=== PATIENT | male | born 1975 | race Two or more races ===

== ENCOUNTER 2020-01-09 12:21 | Outpatient (REF) | payer MEDICAID, SELFPAY | END 2020-01-09 12:22 | disposition home or self-care (01) | LOC: HO.LAB 12:21 | PROVIDERS: Visit Provider Internal Medicine | DX: Z20.828 Contact with and (suspected) exposure to other viral communicable diseases (principal) | CPT/HCPCS: 87635 ==

== ENCOUNTER 2020-03-14 11:05 | Outpatient (REF) | payer MEDICAID, SELFPAY | END 2020-03-14 11:06 | disposition home or self-care (01) | LOC: HO.LAB 11:05 | PROVIDERS: Visit Provider Internal Medicine | DX: Z20.828 Contact with and (suspected) exposure to other viral communicable diseases (principal) | CPT/HCPCS: C9803; U0003 ==

== ENCOUNTER 2020-09-19 14:10 | Outpatient (REF) | payer OTHER, SELFPAY ==
[2020-09-19 15:00] LABS: MANUAL DIFF FLAG NO
[2020-09-19 15:06] LABS: Glucose Urine UA NEG (NEG); Leukocyte Esterase Urine NEG (NEG); Nitrite Urine NEG (NEG); Urine Blood NEG (NEG); Urine Ketones NEG (NEG); Urine Protein NEG (NEG-TRACE)
[2020-09-19 15:07] LABS: Appearance Urine HAZY; Color Urine YELLOW
[2020-09-19 15:08] LABS: Basophils Percent Auto 0.5 % (0-2); Eosinophils Absolute Auto 0.1 X10*3/uL (0.0-0.4); Hematocrit 40.1 % (42-52); Hemoglobin 13.1 g/dl (14.0-18.0); Imm Gran Abs Auto 0.02 X10*3/uL (0.00-0.03); Imm Gran Pct Auto 0.3 % (0.0-0.4); Lymphocytes Absolute Auto 1.9 X10*3/uL (1.2-4.9); Lymphocytes Percent Auto 32.4 % (20-40); Mean Corpuscular HGB Conc 32.7 g/dl (31.0-36.0); Mean Corpuscular Hemoglobin 29.9 pg (27.0-33.0); Mean Corpuscular Volume 91.6 fL (80-98); Mean Platelet Volume 10.3 fL (9.4-12.4); Monocytes Absolute Auto 0.6 X10*3/uL (0.1-1.2); Monocytes Percent Auto 10.6 % (2-11); Neutrophils Absolute Auto 3.3 X10*3/uL (2.0-8.3); Neutrophils Percent Auto 55.2 % (45-73); Platelet Count 252 X10*3/uL (160-400); Red Blood Count 4.38 X10*6/uL (4.60-5.80); Red Cell Distribution Width 12.8 % (11.0-16.0); White Blood Count 5.9 X10*3/uL (4.8-10.8)
[2020-09-19 16:05] LABS: Alanine Aminotransferase 19 U/L (0-40); Albumin Level 4.3 g/dL (3.5-5.0); Alkaline Phosphatase 49 U/L (39-117); Anion Gap 12 (12-20); Aspartate Amino Transferase 18 U/L (5-37); Bilirubin Total 0.3 mg/dL (0.0-1.0); Blood Urea Nitrogen 17 mg/dL (9-16); Calcium 9.5 mg/dL (8.4-10.2); Carbon Dioxide 27 mmol/L (22-29); Chloride 107 mmol/L (96-108); Estimated Glomerular Filt Rate > 60; Glucose Random 55 mg/dL (60-115); Potassium 4.6 mmol/L (3.3-5.1); Sodium 141 mmol/L (135-145); Total Protein 7.4 g/dL (6.5-8.0)
[2020-09-21 04:26] LABS: HBc Num1 0.04 S/CO (0.00-0.79); HBsAGNum1 0.18 S/CO (0.00-0.99); HIV AB/AG Nonreactive (Nonreactive); HIV Num 1 0.08 S/CO (0.00-0.99); Hepatitis B Core Antibody Nonreactive (Nonreactive); Hepatitis B Surface Antigen Negative (Negative); ~Hepatitis B Surface Antibody REACTIVE (Nonreactive)
[2020-09-21 04:37] LABS: ~HepC Num1 0.07 S/CO (0.00-0.79); ~Hepatitis C Antibody Nonreactive (Nonreactive)
== END 2020-09-19 14:11 | disposition home or self-care (01) ==
LOC: HO.LAB 14:10
PROVIDERS: PCP Internal Medicine; Visit Provider Internal Medicine
DX: Z01.84 Encounter for antibody response examination (principal); Z11.4 Encounter for screening for human immunodeficiency virus [HIV]; Z11.59 Encounter for screening for other viral diseases; C71.9 Malignant neoplasm of brain, unspecified; Z20.2 Contact with and (suspected) exposure to infections with a predominantly sexual mode of transmission
CPT/HCPCS: 36415; 80053; 81003; 85025; 86704; 86706; 86803; 87340; 87389

== ENCOUNTER 2020-09-27 13:34 | Outpatient (REF) | payer OTHER, SELFPAY ==
--- NOTE | ~2020-09-27 | MR_ITS ---
EXAMINATION: MRI OF THE BRAIN WITH AND WITHOUT IV CONTRAST INDICATION: Malignant neoplasm of brain. COMPARISON: Brain MRI 12/09/2019. TECHNIQUE: Multiplanar multisequence MR imaging of the brain was obtained without and following the administration of 8 mL of Gadavist without complication. FINDINGS: Stable appearance and size of the nonenhancing expansile lesion involving the undersurface of the left temporal lobe posteriorly. There is no pathologic enhancement intracranially. A few scattered foci of T2 signal change throughout the supratentorial white matter also remain stable. There is no hydrocephalus, extra-axial surface collection, or herniation. The major flow voids at the skull base are preserved. There is no acute infarct on diffusion-weighted imaging. There is no intracranial hemorrhage on the gradient recalled echo acquisition. The midline structures are normal. The cerebellar tonsils are normally positioned. The cerebellum and brainstem are normal. The craniocervical junction is normal. Osseous marrow signal intensity is homogenous. The visualized soft tissues are unremarkable. MR/MR head/brain wo/w con IMPRESSION: Stable appearance and size of the nonenhancing expansile lesion involving the undersurface of the left temporal lobe posteriorly.
== END 2020-09-27 13:35 | disposition home or self-care (01) ==
LOC: HO.MRI 13:34
PROVIDERS: PCP Internal Medicine; Visit Provider Internal Medicine
DX: C71.9 Malignant neoplasm of brain, unspecified (principal)
CPT/HCPCS: 70553; A9585

== ENCOUNTER 2020-09-30 12:10 | Emergency (ER) | payer OTHER, SELFPAY ==
--- NOTE | ~2020-09-30 | CT_ITS ---
EXAMINATION: CT HEAD WITHOUT CONTRAST CLINICAL INFORMATION: Headache with history of glioma. COMPARISON: None TECHNIQUE: Contiguous axial imaging was performed from the skull base to vertex without intravenous administration of contrast. This CT examination was performed using dose optimization techniques as appropriate, variously including the following: *Automated exposure control *Adjustment of mA and/or kV according to patient size (this includes techniques or standardized protocols for targeted exams where dose is matched to indication/reason for exam; i.e. extremities or head) *Use of iterative reconstruction technique DLP: 622 mGy-cm FINDINGS: There is no evidence of acute intracranial hemorrhage or territorial infarction. There is hypodensity visualized in the left inferior posterior temporal lobe extending to the posterior temporal parietal lobe suggestive of ongoing none disease/edema for glioma. The findings are similar to previous MRI 09/27/2020. The ventricles are normal in size. There is no abnormal attenuation within the brain parenchyma. The osseous structures and soft tissues are normal. The mastoid air cells and visualized portions of the paranasal sinuses are well aerated. CT/CT head/brain wo con IMPRESSION: No acute intracranial process seen. Moderate hypodensity left posterior temporal lobe extending to the posterior extent lobe consistent with edema are ongoing none changes from glioma similar to previous MRI 09/27/2020.
[2020-09-30 12:18] VITALS: BP 120/75; PULSE 76; RESP 18; TEMP 36.2; O2SAT 97; BMI 27.7
--- NOTE | 2020-09-30 14:34 | ED.HA ---
HPI - Headache General Chief Complaint: Headache Stated Complaint: headache Time Seen by Provider: 09/30/20 12:57 Source: patient Mode of arrival: ambulatory Limitations: no limitations History of Present Illness HPI Narrative: 45 years old male came in for evaluation of headache. Headache started many weeks ago, patient is known to have brain glioma, patient just had a recent MRI for his annual evaluation. Patient been having pressure inside his head today felt while he was driving the pressure with increased, but shortly after the headache has improved, no blurry vision, no nausea, no vomiting. Related Data Home Medications Medication Instructions Recorded Confirmed No Known Home Meds 09/19/20 09/19/20 Allergies Allergy/AdvReac Type Severity Reaction Status Date / Time No Known Allergies Allergy Verified 09/19/20 13:52 Review of Systems Review of Systems: All other systems are reviewed and are negative Constitutional: Reports as per HPI and Reports no additional constitutional complaints Eyes: Reports as per HPI and Reports no additional eye complaints Reports system reviewed and no additional complaints, except as documented Cardiovascular: Reports as per HPI and Reports no additional cardiovascular complaints Respiratory: Reports as per HPI and Reports no additional respiratory complaints Gastrointestinal: Reports as per HPI and Reports no additional gastrointestinal complaints Genitourinary: Reports no additional female genitourinary complaints Musculoskeletal: Reports no additional musculoskeletal complaints Skin/Breast: Reports system reviewed and no additional complaints, except as docu Psychiatric: Reports no additional psychiatric complaints Endocrine: Reports no additional endocrine complaints Hematologic/Lymphatic: Reports no additional hematologic/lymphatic complaints Allergic/Immunologic: Reports no additional allergic/immunologic complaints Reports system reviewed and no additional complaints, except as documented and Reports Abnormal speech present [facility] Past Medical History Medical History Low grade glioma of brain Potential exposure to STD Surgical History H/O circumcision Hx of appendectomy Family History Family History Mother No problems noted. Father No problems noted. Social History Social History Housing: Apartment Alcohol intake: never Patient Tobacco Use Status: Never used Tobacco Advance Directives: No Advance Directives Information Provided: Yes service: No Current occupational status: employed Current occupation: [employer] Physical Exam Vital Signs: Vital Signs: Last Vital Signs Temp 97.1 F 09/30/20 12:18 Pulse 76 09/30/20 12:18 Resp 18 09/30/20 12:18 BP 120/75 09/30/20 12:18 Pulse Ox 97 09/30/20 12:18 Body Mass Index 27.7 Vital signs have been reviewed as appeared to be correct. Blood pressure normal. Heart rate normal. Respiration rate normal. Temperature normal. Oxygen saturation normal. Appearance: Alert. Oriented X3. No acute distress. Head: Normal external exam. Normocephalic. Atraumatic. No Hutchison signs noted. No raccoon eyes noted Eyes: PERRLA. EOMI. Conjunctiva and sclera normal. Eyelids normal. ENT: TM's Normal. Pharynx normal. Uvula midline. Moist mucous membranes. No trismus noted. No drooling noted. No muffled voice noted. Neck: Normal inspection. Neck supple. FROM. No adenopathy. Thyroid Normal. No meningeal signs. No neck mass noted. CVS: Normal heart rate and rhythm. Heart sound normal. No murmurs noted. Pulses normal throughout. Respiratory: No respiratory distress. Painless inspiration. Breath sounds normal. No wheezes/rales/rhonchi noted. Chest nontender. No accessory muscle usage noted or decreased air movement noted. Abdomen: Soft and nontender. Bowel sounds normal in all 4 quadrants. No distention noted. No organomegaly noted. No visible injury noted. Back: No CVA tenderness. Full range of motion noted. Skin: Skin warm and dry. Normal skin color. Normal skin turgor. No rashes/lesions/lacerations noted. Extremities: No lower extremity edema. Extremities exhibit normal range of motion. Extremities nontender. Neuro: Oriented X 3. No motor deficit. No sensory deficit. Reflexes normal. Course Course Course Narrative: Assessment and plan. 45-year-old male with history of glioma, came in with chronic headache, head CT showed no acute changes, patient had a recent MRI of the brain which also showing no acute pathology. Headache is fluctuating, currently patient has no headache. MDM - Headache Imaging Data CT scan - head: Radiologist's impression: No acute intracranial process seen. Moderate hypodensity left posterior temporal lobe extending to the posterior extent lobe consistent with edema are ongoing none changes from glioma similar to previous MRI 09/27/2020. Discharge Plan Discharge Clinical Impression: Headache Patient Disposition: Home, Self-Care Instructions: Acute Headache (ED) Prescriptions: No Action No Known Home Meds RF: 0 Referrals: Dio Oden MD [Primary Care Provider] - 2 days
== END 2020-09-30 16:55 | disposition home or self-care (01) ==
PROVIDERS: Emergency Provider Emergency Medicine; PCP Internal Medicine
DX: R51.9 Headache, unspecified (principal); C71.9 Malignant neoplasm of brain, unspecified
CPT/HCPCS: 70450; 99284

== ENCOUNTER 2021-01-01 01:36 | Emergency (ER) | payer OTHER, SELFPAY ==
--- NOTE | 2021-01-01 | ECG_ITS ---
Test Reason : BELKIS OAIN Blood Pressure : / mmHG Vent. Rate : 065 BPM Atrial Rate : 065 BPM P-R Int : 144 ms QRS Dur : 086 ms QT Int : 382 ms P-R-T Axes : 067 020 034 degrees QTc Int : 397 ms Normal sinus rhythm Normal ECG When compared with ECG of 21-FEB-2016 13:06, No significant change was found Referred By: Generic ED Physician Electronically Signed By:YRIS LIU MD
--- NOTE | ~2021-01-01 | XR_ITS ---
EXAMINATION: XR CHEST CLINICAL INFORMATION: Chest pain COMPARISON: 01/08/2016 TECHNIQUE: Frontal view of the chest was obtained. FINDINGS: No significant abnormality is noted involving the heart, lungs, mediastinum, bony thorax or soft tissues. XR/XR chest 1V IMPRESSION: Unremarkable examination.
[2021-01-01 01:59] LABS: MANUAL DIFF FLAG NO
[2021-01-01 02:08] VITALS: BP 140/89; PULSE 67; RESP 20; TEMP 36.2; O2SAT 99; BMI 27.3
[2021-01-01 02:11] LABS: Basophils Percent Auto 0.3 % (0-2); Eosinophils Absolute Auto 0.1 X10*3/uL (0.0-0.4); Eosinophils Percent Auto 1.5 % (0-4); Hematocrit 38.4 % (42-52); Imm Gran Abs Auto 0.01 X10*3/uL (0.00-0.03); Imm Gran Pct Auto 0.2 % (0.0-0.4); Lymphocytes Absolute Auto 2.8 X10*3/uL (1.2-4.9); Lymphocytes Percent Auto 42.2 % (20-40); Mean Corpuscular HGB Conc 33.9 g/dl (31.0-36.0); Mean Corpuscular Hemoglobin 30.4 pg (27.0-33.0); Mean Corpuscular Volume 89.7 fL (80-98); Mean Platelet Volume 10.2 fL (9.4-12.4); Monocytes Absolute Auto 0.7 X10*3/uL (0.1-1.2); Neutrophils Percent Auto 45.8 % (45-73); Platelet Count 236 X10*3/uL (160-400); Red Blood Count 4.28 X10*6/uL (4.60-5.80); Red Cell Distribution Width 13.1 % (11.0-16.0); White Blood Count 6.6 X10*3/uL (4.8-10.8)
[2021-01-01 02:27] LABS: Alanine Aminotransferase 22 U/L (0-40); Albumin Level 4.3 g/dL (3.5-5.0); Alkaline Phosphatase 47 U/L (39-117); Anion Gap 12 (12-20); Aspartate Amino Transferase 19 U/L (5-37); Bilirubin Total 0.3 mg/dL (0.0-1.0); Blood Urea Nitrogen 20 mg/dL (9-16); Calcium 9.2 mg/dL (8.4-10.2); Carbon Dioxide 24 mmol/L (22-29); Chloride 107 mmol/L (96-108); Creatinine Clr Calc Pharmacy 86.2; Estimated Glomerular Filt Rate > 60; Glucose Random 85 mg/dL (60-115); Potassium 4.5 mmol/L (3.3-5.1); Sodium 138 mmol/L (135-145); Total Protein 7.5 g/dL (6.5-8.0)
[2021-01-01 02:32] LABS: Troponin-I High Sensitivity < 3.5 ng/L (<3.5-35.0)
[2021-01-01 04:47] VITALS: BP 146/87; PULSE 62; RESP 15; O2SAT 100
[2021-01-01 06:00] VITALS: BP 138/87; PULSE 64; RESP 15; O2SAT 100
--- NOTE | 2021-01-01 06:38 | ED_ITS ---
HPI - Chest Pain General Chief Complaint: Chest Pain Stated Complaint: Chest Pain Time Seen by Provider: 01/01/21 06:38 Source: patient Mode of arrival: ambulatory Limitations: no limitations History of Present Illness complaint: chest pain Onset (ago): hour(s) (12 am) Timing of current episode: episodic Prior episodes: Yes Onset: during rest Pain location: left chest Pain radiation: none Severity: moderate Quality: sharp Relieving factors: nothing Exacerbating factors: nothing Context: other (occured while watching TV started suddenly ended suddenly asymp tomatic now) Treatment prior to arrival: none Related Data Home Medications Medication Instructions Recorded Confirmed No Known Home Meds 09/19/20 09/19/20 Allergies Allergy/AdvReac Type Severity Reaction Status Date / Time No Known Allergies Allergy Verified 09/19/20 13:52 Review of Systems Review of Systems: Constitutional : No Weight loss, No Fever, No Chills ENT/Mouth : No sore throat, No Rhinorrhea Eyes: No Eye Pain, No Swelling Cardiovascular : pos Chest Pain, no SOB, no Dyspnea on Exertion, No Orthopnea, No Edema, No Palpitations Respiratory : No Cough, No Sputum Gastrointestinal : no Nausea, No Vomiting, No Diarrhea, No abdominal Pain, No Hematochezia, No Melena Genitourinary : No Dysuria, No Urinary Frequency Musculoskeletal : No joint pain, No Myalgias, No Joint Swelling Skin : No Skin Lesions, No rash Neuro : No Weakness, No Numbness, No Dizziness, No Headache Psych : No Anxiety/Panic, No Depression Heme/Lymph: No Bruising, No Lymphadenopathy Endocrine : No Polyuria, No Polydipsia All other systems reviewed and are negative [facility] Past Medical History Attestation statement: The following information was validated with the patient. Medical History Low grade glioma of brain Potential exposure to STD Surgical History H/O circumcision Hx of appendectomy Family History Family History Mother No problems noted. Father No problems noted. 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 Oriented X3. No acute distress. Eyes: Pupils equal, round and reactive to light. ENT: Pharynx normal. Neck: Normal inspection. Neck supple. CVS: Normal heart rate and rhythm. Pulses normal. Respiratory: No respiratory distress. Breath sounds normal. Abdomen: Soft and nontender. Skin: Skin warm and dry. Normal skin color. Normal skin turgor. Extremities: No lower extremity edema. No calf ttp Neuro: Oriented X 3. No motor deficit. No sensory deficit. Course Course Course Narrative: delta trop negative stable for DC MDM - Chest Pain MDM Narrative Medical decision making narrative: 45 yo male atypical chest pain here with symptoms that started at 12am no pain now it was sharp in nature. He is PERC negative doubt PE. No pain now doubt dissection. It is very atypical in nature for ACS and he has no risk factors - will obtain EKG, CXR and delta trop if negative stable for DC Lab Data Result diagrams: 01/01/21 01:55 01/01/21 01:55 Labs: Lab Results 01/01/21 01/01/21 01/01/21 Range/Units 01:55 01:55 01:55 WBC 6.6 (4.8-10.8) X10*3/uL RBC 4.28 L (4.60-5.80) X10*6/uL Hgb 13.0 L (14.0-18.0) g/dl Hct 38.4 L (42-52) % MCV 89.7 (80-98) fL MCH 30.4 (27.0-33.0) pg MCHC 33.9 (31.0-36.0) g/dl RDW 13.1 (11.0-16.0) % Plt Count 236 (160-400) X10*3/uL MPV 10.2 (9.4-12.4) fL Immature Gran % (Auto) 0.2 (0.0-0.4) % Neut % (Auto) 45.8 (45-73) % Lymph % (Auto) 42.2 H (20-40) % [place] % (Auto) 10.0 (2-11) % Eos % (Auto) 1.5 (0-4) % Baso % (Auto) 0.3 (0-2) % Lymph # (Auto) 2.8 (1.2-4.9) X10*3/uL [place] # (Auto) 0.7 (0.1-1.2) X10*3/uL Eos # (Auto) 0.1 (0.0-0.4) X10*3/uL Baso # (Auto) 0.0 (0.0-0.2) X10*3/uL Abs Immat Gran (auto) 0.01 (0.00-0.03) X10*3/uL Absolute Neuts (auto) 3.0 (2.0-8.3) X10*3/uL Absolute Nucleated RBC 0.000 (0.0-0.012) X10*3/uL Nucleated RBC % (auto) 0.0 (0.0-0.2) /100WBC Sodium 138 (135-145) mmol/L Potassium 4.5 (3.3-5.1) mmol/L Chloride 107 (96-108) mmol/L Carbon Dioxide 24 (22-29) mmol/L Anion Gap 12 (12-20) BUN 20 H (9-16) mg/dL Creatinine 1.00 (0.5-1.4) mg/dL Estim Creat Clear Calc 86.2 Estimated GFR > 60 Random Glucose 85 D (60-115) mg/dL Calcium 9.2 (8.4-10.2) mg/dL Total Bilirubin 0.3 (0.0-1.0) mg/dL AST 19 (5-37) U/L ALT 22 (0-40) U/L Alkaline Phosphatase 47 (39-117) U/L Troponin I High Sens < 3.5 (<3.5-35.0) ng/L Total Protein 7.5 (6.5-8.0) g/dL Albumin 4.3 (3.5-5.0) g/dL 01/01/21 Range/Units 07:05 WBC (4.8-10.8) X10*3/uL RBC (4.60-5.80) X10*6/uL Hgb (14.0-18.0) g/dl Hct (42-52) % MCV (80-98) fL MCH (27.0-33.0) pg MCHC (31.0-36.0) g/dl RDW (11.0-16.0) % Plt Count (160-400) X10*3/uL MPV (9.4-12.4) fL Immature Gran % (Auto) (0.0-0.4) % Neut % (Auto) (45-73) % Lymph % (Auto) (20-40) % [place] % (Auto) (2-11) % Eos % (Auto) (0-4) % Baso % (Auto) (0-2) % Lymph # (Auto) (1.2-4.9) X10*3/uL [place] # (Auto) (0.1-1.2) X10*3/uL Eos # (Auto) (0.0-0.4) X10*3/uL Baso # (Auto) (0.0-0.2) X10*3/uL Abs Immat Gran (auto) (0.00-0.03) X10*3/uL Absolute Neuts (auto) (2.0-8.3) X10*3/uL Absolute Nucleated RBC (0.0-0.012) X10*3/uL Nucleated RBC % (auto) (0.0-0.2) /100WBC Sodium (135-145) mmol/L Potassium (3.3-5.1) mmol/L Chloride (96-108) mmol/L Carbon Dioxide (22-29) mmol/L Anion Gap (12-20) BUN (9-16) mg/dL Creatinine (0.5-1.4) mg/dL Estim Creat Clear Calc Estimated GFR Random Glucose (60-115) mg/dL Calcium (8.4-10.2) mg/dL Total Bilirubin (0.0-1.0) mg/dL AST (5-37) U/L ALT (0-40) U/L Alkaline Phosphatase (39-117) U/L Troponin I High Sens < 3.5 (<3.5-35.0) ng/L Total Protein (6.5-8.0) g/dL Albumin (3.5-5.0) g/dL ECG Data ECG #1: Attestation: I personally reviewed and interpreted this ECG as follows: ECG interpretation date: 01/01/21 ECG interpretation time: 06:39 Interpretation: Rate: 66 Rhythm: NSR [place]: normal Normal P waves. Normal ROSS. Normal QRS complex. ST T wave : normal no acute ischemia qTC: normal prior studies: no acute ischemia The study has been interpreted contemporaneously by me. . Discharge Plan Discharge Clinical Impression: Atypical chest pain Patient Disposition: Home, Self-Care Instructions: Chest Pain (ED) Additional Instructions: return to ED for any worsening symptoms or concerns Prescriptions: No Action No Known Home Meds RF: 0 Referrals: Dio Oden MD [Primary Care Provider] - 2 days (if not better or it recurs) Stand Alone Forms: Work/School Release
[2021-01-01 07:45] LABS: Troponin-I High Sensitivity < 3.5 ng/L (<3.5-35.0)
== END 2021-01-01 07:54 | disposition home or self-care (01) ==
PROVIDERS: Emergency Provider Emergency Medicine; PCP Internal Medicine
DX: R07.9 Chest pain, unspecified (principal); Z79.899 Other long term (current) drug therapy
CPT/HCPCS: 36415; 71045; 80053; 84484; 85025; 93005; 99283; 99285

== ENCOUNTER 2021-02-06 18:01 | Emergency (ER) | payer OTHER, SELFPAY ==
[2021-02-06 18:30] VITALS: BP 135/83; PULSE 74; RESP 18; TEMP 36.8; O2SAT 100; BMI 28.1
[2021-02-06 19:41] LABS: IDNOW Serial# 08D9AD1C; Strep A Nucleic Acid Negative (Negative)
[2021-02-06 19:49] LABS: COVID-19 Test Negative (Negative)
--- NOTE | 2021-02-06 19:52 | ED.GENADULT ---
HPI - General Adult General Chief complaint: General Medical Stated complaint: sore throat Time Seen by Provider: 02/06/21 18:54 Source: patient Mode of arrival: ambulatory Limitations: no limitations History of Present Illness HPI narrative: 45-year-old male presents to the ER with painful red bumps on the roof of mouth that he noticed this morning. He also reports a mild sore throat. He is worried that the bumps could be from a bacterial infection in the has a new baby at home. He is fully vaccinated for COVID-19 and denies any fevers, chills, nausea, vomiting, diarrhea, abdominal pain, nasal congestion, headache. No known sick contacts. No dental pain. MD complaint: Painful sores on the roof of his mouth. Onset (ago): day(s) (1) Location: mouth Radiation: non-radiation Severity: moderate Severity scale (1-10): 5 Quality: burning Pain Consistency: intermittent Relieving factors: none Exacerbating factors: eating Associated symptoms: denies other symptoms Treatments prior to arrival: none Related Data Previous Rx's Medication Instructions Recorded Magic Mouthwash 20 ml PO Q3H PRN #240 ml 02/06/21 Diphen/Lido/Antacid 1:1:1 240 mL suspension Allergies Allergy/AdvReac Type Severity Reaction Status Date / Time No Known Allergies Allergy Verified 09/19/20 13:52 Review of Systems Review of Systems: Constitutional: No Fever, No Chills ENT/Mouth: + sore throat, No Rhinorrhea, No Swallowing Difficulty Eyes: No Eye Pain, No Swelling, No Redness Cardiovascular: No Chest Pain, No SOB Respiratory: No Cough, No Sputum Gastrointestinal: No Nausea, No Vomiting, No abdominal Pain Skin: No Skin Lesions, No rash Neuro: No Dizziness, No Headache Psych: + Anxiety/Panic Heme/Lymph: No Bruising, No Lymphadenopathy PMFSH Past Medical History Medical History Low grade glioma of brain Potential exposure to STD Surgical History H/O circumcision Hx of appendectomy Family History Family History Mother No problems noted. Father No problems noted. 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 Oriented X3. Anxious HEENT: normal external inspection. Mucous membranes are moist. Uvula is midline with no tonsillar swelling or exudate. Normal appearance of the tongue. Normal inspection of the teeth. The hard palate with to less than 1 cm circular ulcerations very superficial, erythematous, slightly tender. CVS: Normal heart rate and rhythm. Pulses normal. Respiratory: No respiratory distress. Skin: Skin warm and dry. Normal skin color. Normal skin turgor. No rashes. Extremities: Normal inspection with normal range of motion x4 Neuro: Oriented X 3. No motor deficit. No sensory deficit. Course Course Course Narrative: 45-year-old male presenting to the ER with 2 small circular painful lesions on the roof of his mouth that he noticed today. He would like a strep test and COVID test make sure these are infectious. Lesions are consistent with superficial abrasions from trauma versus canker sores. Reevaluation(s) Reevaluation #1: COVID and strep negative. Will provide Magic mouthwash as needed for pain. Patient will follow-up with his doctor or dentist if these do not improve with supportive care. Patient is stable for discharge home. Medical Decision Making Lab Data Labs: Lab Results 02/06/21 02/06/21 Range/Units 19:26 19:26 COVID-19 (LIMA) Negative (Negative) COVID-19 Clin Com See Note S. pyogenes GrpA KATIE Negative (Negative) Critical Care Time Critical Care Time Critical Care Time: No Discharge Plan Discharge Clinical Impression: Pain in mouth Patient Disposition: Home, Self-Care Instructions: Canker Sores (ED) Additional Instructions: You were negative for COVID-19 and strep throat. The lesions on the top your mouth or either from trauma or a canker sore. Use the prescribed mouthwash as needed for pain. Recommend [id number] [place] as needed for pain If lesions do not resolve in a 1 week recommend following up with your doctor or dentist for further evaluation. Prescriptions: New Magic Mouthwash Diphen/Lido/Antacid 1:1:1 240 mL suspension 20 ml PO Q3H PRN (Reason: mouth pain) Qty: 240 RF: 0 Print Language: Arabic
== END 2021-02-06 20:15 | disposition home or self-care (01) ==
PROVIDERS: Physician Assistant; Emergency Provider Emergency Medicine
DX: K13.79 Other lesions of oral mucosa (principal); Z20.822 Contact with and (suspected) exposure to COVID-19
CPT/HCPCS: 36415; 87635; 87651; 99283

== ENCOUNTER 2021-02-18 10:01 | Outpatient (REF) | payer OTHER, SELFPAY ==
[2021-02-18 11:10] LABS: Cholesterol 222 mg/dL; HDL Cholesterol 95 mg/dL; LDL Cholesterol Calculated 117 mg/dl; Triglycerides 54 mg/dL
[2021-02-18 11:23] LABS: HIV AB/AG Nonreactive (Nonreactive); HIV Num 1 0.06 S/CO (0.00-0.99)
[2021-02-18 11:24] LABS: Syphilis Screen Nonreactive (Nonreactive)
[2021-02-18 11:31] LABS: TSH reflex Free T4 0.46 uIU/mL (0.32-4.0)
[2021-02-18 13:06] LABS: CT PCR NOT DETECTED (Not Detect.); NG PCR NOT DETECTED (Not Detect.)
[2021-02-22 18:27] LABS: HSV 1 IgM IFA Negative (Negative); HSV 2 IgM IFA Negative (Negative)
== END 2021-02-18 10:02 | disposition home or self-care (01) ==
LOC: HO.LAB 10:01
PROVIDERS: PCP Internal Medicine; Visit Provider Internal Medicine
DX: Z00.00 Encounter for general adult medical examination without abnormal findings (principal); Z11.4 Encounter for screening for human immunodeficiency virus [HIV]; E78.00 Pure hypercholesterolemia, unspecified; Z20.2 Contact with and (suspected) exposure to infections with a predominantly sexual mode of transmission
CPT/HCPCS: 80061; 84443; 86695; 86696; 86780; 87389; 87491; 87591

== ENCOUNTER 2021-05-04 08:36 | Emergency (ER) | payer OTHER, SELFPAY ==
[2021-05-04 08:45] VITALS: BP 135/76; PULSE 94; RESP 18; TEMP 37.5; O2SAT 97; BMI 26.6
[2021-05-04 09:36] LABS: COVID-19 Test Negative (Negative)
--- NOTE | 2021-05-04 09:44 | ED_ITS ---
HPI - Fever General Chief Complaint: Fever Stated Complaint: headache body aches fever Time Seen by Provider: 05/04/21 09:35 Source: patient Mode of arrival: ambulatory Limitations: no limitations History of Present Illness HPI Narrative: 46 yo male here with fever up to 102F, headache, body aches, nasal congestion x 2 days. No cough, rhinorrhea, sore throat, shortness of breath, chest pain, vomiting, diarrhea, abdominal pain, neck pain or stiffness or urinary symptoms. Patient received moderna vaccine x2 Related Data Allergies Allergy/AdvReac Type Severity Reaction Status Date / Time No Known Allergies Allergy Verified 02/13/21 22:36 Review of Systems Review of Systems: Yes all other systems are reviewed and are negative Constitutional: Constitutional: Reports no additional constitutional complaints, Reports body ache(s), Denies chills, Reports fever(s), Reports headache(s) and Denies weakness Eyes: Eyes: Reports no additional eye complaints and Denies change in vision ENT: Reports system reviewed and no additional complaints, except as documented, Denies dizziness, Reports headache(s), Reports nasal congestion, Denies nasal discharge and Denies neck pain Cardiovascular: Cardiovascular: Reports no additional cardiovascular complaints, Denies chest pain, Denies leg edema and Denies dyspnea Respiratory: Respiratory: Reports no additional respiratory complaints, Denies cough and Denies dyspnea Gastrointestinal: Gastrointestinal: Reports no additional gastrointestinal complaints, Denies abdominal pain, Denies diarrhea, Denies nausea and Denies vomiting Genitourinary: Genitourinary: Denies urinary incontinence Musculoskeletal: Musculoskeletal: Reports no additional musculoskeletal complaints, Denies back pain, Denies arthralgias, Denies joint swelling, Denies neck pain, Denies numbness and Denies tingling Integumentary/Breasts: Skin/Breast: Reports system reviewed and no additional complaints, except as docu and Denies rash Neurologic: Reports system reviewed and no additional complaints, except as documented, Denies Abnormal speech present, Denies dizziness, Reports headache(s), Denies numbness, Denies tingling and Denies weakness PMF Past Medical History Attestation statement: The following information was validated with the patient. Source: old records reviewed and nursing notes reviewed Medical History Low grade glioma of brain Overweight (BMI 25.0-29.9) Potential exposure to STD Surgical History H/O circumcision Hx of appendectomy Family History Family History Mother No problems noted. Father No problems noted. 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 Physical Exam Vital Signs: Vital Signs: Last Vital Signs Temp 99.5 F 05/04/21 08:45 Pulse 94 05/04/21 08:45 Resp 18 05/04/21 08:45 BP 135/76 05/04/21 08:45 Pulse Ox 97 05/04/21 08:45 BMI result Body Mass Index 26.6 Const: General: cooperative, healthy appearing, comfortable and no acute distress Orientation/consciousness: patient oriented x3 Limitations: no limitations HENMT: Head: Yes normal to inspection Ears: hearing grossly normal bilaterally and TM's normal bilaterally General nose exam: Normal external nose present Face and sinus: Yes normal facial exam Mouth: Normal oral and palatal mucosa present Throat: Yes posterior oropharynx normal, Yes tonsils normal and Yes uvula midline Eyes: General: appearance normal, both eyes and all related structures Pupils: Equal, round and reactive pupils present Neck: Neck: Yes normal visual inspection, Yes full ROM, Yes no lymphadenopathy, Yes no meningeal signs, No positive Brudzinski's sign and No positive Kernig's sign Chest: Chest palpation & inspection: normal inspection of the chest Resp: Effort & Inspection: normal respiratory effort Auscultation: clear to auscultation bilaterally Cardio: Rate: regular rate Rhythm: regular rhythm Peripheral pulses: Peripheral pulses 2+ throughout GI: Inspection: Yes normal to inspection Palpation (GI): Soft to palpation and nontender Auscultation: normal bowel sounds Back/Spine/Pelvis: Thoracic/Lumbar Spine: thoracic and lumbar spine normal to inspection Skin: General skin exam: no rashes or lesions noted Neuro: General: patient oriented x3, no meningeal signs, no focal motor deficits and normal sensation to monofilament Cranial nerves: Yes Equal, round and reactive pupils present, Yes Normal facial strength present and Yes Midline tongue present Cognition (Neuro): normal cognition Speech: No Abnormal speech present Gait exam (Neuro): Normal gait present Motor exam (neuro): 5/5 motor strength present throughout Sensory Exam: Normal double simultaneous stimulation for sensation Extrem: General: Yes normal to inspection, Yes no pedal edema and Yes no calf tenderness Course Course Course Narrative: 46 yo male here with fever up to 102F, nasal congestion, headache, body aches x 2 days. Covid screen negative. Exam is benign. Afebrile here. VSS. Likely viral. Recommended supportive care at home with strict return precautions as well as f/u with PCP in 7 days for persistent symptoms. MDM - Fever MDM Narrative Medical decision making narrative: Less likely meningitis/encephalitis with no neurological deficits, no neck pain/stiffness, no fever here, nonspecific [facility] Medical Records Attestation: I reviewed the patient's medical records. Lab Data Attestation: I reviewed the patient's lab results. Labs: Lab Results 05/04/21 Range/Units 08:53 COVID-19 ([facility]) Negative (Negative) COVID-19 Clin Com See Note Discharge Plan Discharge Clinical Impression: Viral infection Patient Disposition: Home, Self-Care Instructions: Viral Syndrome (ED) Additional Instructions: Covid test is negative Increase fluids, rest Motrin or tylenol for pain or fever Continue to stay home, wear mask if you are having fever Return for shortness of breath, chest pain, fever >100.4 that does not respond to motrin or tylenol, neck pain or stiffness Follow-up with your PCP in 7 days for persistent symptoms Referrals: Dio Oden MD [Primary Care Provider] - 1 week Interventions: ED Discharge Assessment Last Done: 05/04/21 09:56 Discharge Date/Time: 05/04/21 09:56
== END 2021-05-04 09:56 | disposition home or self-care (01) ==
PROVIDERS: Emergency Provider Emergency Medicine Emergency Medical Services; PCP Internal Medicine
DX: B34.9 Viral infection, unspecified (principal); Z20.822 Contact with and (suspected) exposure to COVID-19; R50.9 Fever, unspecified
CPT/HCPCS: 87635; 99283

== ENCOUNTER 2021-06-20 20:23 | Emergency (ER) | payer OTHER, SELFPAY ==
--- NOTE | ~2021-06-20 | XR_ITS ---
EXAMINATION: XR CHEST CLINICAL INFORMATION: Chest pain and cough. COMPARISON: Chest radiograph dated from 01/01/2021. TECHNIQUE: 2 views of the chest were obtained. FINDINGS: No significant abnormality is noted involving the heart, lungs, mediastinum, bony thorax or soft tissues. XR/XR chest 2V IMPRESSION: Unremarkable examination.
[2021-06-20 20:31] VITALS: BP 127/90; PULSE 104; RESP 18; TEMP 37.9; O2SAT 98; BMI 24.3
--- NOTE | 2021-06-20 20:38 | ECG_ITS ---
Test Reason : chest pain Blood Pressure : / mmHG Vent. Rate : 099 BPM Atrial Rate : 099 BPM P-R Int : 136 ms QRS Dur : 080 ms QT Int : 324 ms P-R-T Axes : 066 -01 030 degrees QTc Int : 415 ms Normal sinus rhythm Normal ECG When compared with ECG of 01-JAN-2021 01:44, Vent. rate has increased BY 34 BPM Referred By: Generic ED Physician Electronically Signed By:ELDA POSADA
[2021-06-20 21:01] LABS: MANUAL DIFF FLAG NO
[2021-06-20 21:02] LABS: Basophils Percent Auto 0.4 % (0-2); Eosinophils Percent Auto 0.6 % (0-4); Hematocrit 39.3 % (42.0-52.0); Hemoglobin 13.1 g/dl (14.0-18.0); Imm Gran Abs Auto 0.02 X10*3/uL (0.00-0.03); Imm Gran Pct Auto 0.4 % (0.0-0.4); Lymphocytes Absolute Auto 0.7 X10*3/uL (1.2-4.9); Lymphocytes Percent Auto 13.1 % (20-40); Mean Corpuscular HGB Conc 33.3 g/dl (31.0-36.0); Mean Corpuscular Hemoglobin 30.6 pg (27.0-33.0); Mean Corpuscular Volume 91.8 fL (80.0-98.0); Mean Platelet Volume 9.8 fL (9.4-12.4); Monocytes Absolute Auto 0.9 X10*3/uL (0.1-1.2); Monocytes Percent Auto 17.1 % (2-11); Neutrophils Absolute Auto 3.4 x10*3/uL (2.0-8.3); Neutrophils Percent Auto 68.4 % (45-73); Platelet Count 240 X10*3/uL (160-400); Red Blood Count 4.28 X10*6/uL (4.60-5.80); Red Cell Distribution Width 13.2 % (11.0-16.0)
[2021-06-20 21:18] LABS: Anion Gap 10 (12-20); Blood Urea Nitrogen 14 mg/dL (9-16); Calcium 9.1 mg/dL (8.4-10.2); Carbon Dioxide 28 mmol/L (22-29); Chloride 103 mmol/L (96-108); Creatinine Clr Calc Pharmacy 76.8; Estimated Glomerular Filt Rate > 60; Glucose Random 102 mg/dL (60-115); Potassium 4.2 mmol/L (3.3-5.1); Sodium 137 mmol/L (135-145)
[2021-06-20 21:22] LABS: Troponin-I High Sensitivity < 3.5 ng/L (<3.5-35.0)
[2021-06-20 21:38] LABS: Influenza A PCR POSITIVE (Negative); Influenza B PCR NEGATIVE (Negative); Resp Syncy Virus RNA Qual PCR NEGATIVE (Negative); SARS COV2 PCR INHOUSE NEGATIVE (Negative)
--- NOTE | 2021-06-20 23:50 | ED.GENADULT ---
HPI - General Adult General Chief complaint: General Medical Stated complaint: diff breathing, weakness, chest pain Time Seen by Provider: 06/20/21 23:50 Source: patient Mode of arrival: ambulatory Limitations: no limitations History of Present Illness HPI narrative: patient already vaccinated against COVID-19 complaining of body aches headache all started today with dry cough no shortness of breath no rash Related Data Previous Rx's Medication Instructions Recorded codeine 10 mg-guaifenesin 100 mg/5 10 ml PO Q6H PRN #237 ml 06/21/21 mL oral liquid Allergies Allergy/AdvReac Type Severity Reaction Status Date / Time No Known Allergies Allergy Verified 06/20/21 20:31 Review of Systems Review of Systems: Yes all other systems are reviewed and are negative PMFSH Past Medical History Medical History Low grade glioma of brain Overweight (BMI 25.0-29.9) Potential exposure to STD Surgical History H/O circumcision Hx of appendectomy Family History Family History Mother No problems noted. Father No problems noted. 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 Oriented X3. No acute distress. ENT: Pharynx normal. Oral Mucosa moist Neck: Normal inspection. Neck supple. CVS: Normal heart rate and rhythm. Pulses normal. Respiratory: No respiratory distress. Equal air entry bilateral, no wheezing/rales/rhonchi Abdomen: Soft and nontender. Bowel sounds are present, no mass palpable, no CVA tenderness Skin: Skin warm and dry. Normal skin color. Normal skin turgor. Extremities: No lower extremity edema. No calf tenderness Neuro: Oriented X 3. No motor deficit. No sensory deficit.No cerebellar signs , cranial nerves II-XII intact Medical Decision Making Lab Data Lab results reviewed: Yes I reviewed the patient's lab results. Result diagrams: 06/20/21 20:54 06/20/21 20:54 Labs: Lab Results 06/20/21 06/20/21 06/20/21 Range/Units 20:54 20:54 20:54 WBC 5.0 (4.8-10.8) X10*3/uL RBC 4.28 L (4.60-5.80) X10*6/uL Hgb 13.1 L (14.0-18.0) g/dl Hct 39.3 L (42.0-52.0) % MCV 91.8 (80.0-98.0) fL MCH 30.6 (27.0-33.0) pg MCHC 33.3 (31.0-36.0) g/dl RDW 13.2 (11.0-16.0) % Plt Count 240 (160-400) X10*3/uL MPV 9.8 (9.4-12.4) fL Immature Gran % (Auto) 0.4 (0.0-0.4) % Neut % (Auto) 68.4 (45-73) % Lymph % (Auto) 13.1 L (20-40) % [place] % (Auto) 17.1 H (2-11) % Eos % (Auto) 0.6 (0-4) % Baso % (Auto) 0.4 (0-2) % Lymph # (Auto) 0.7 L (1.2-4.9) X10*3/uL [place] # (Auto) 0.9 (0.1-1.2) X10*3/uL Eos # (Auto) 0.0 (0.0-0.4) X10*3/uL Baso # (Auto) 0.0 (0.0-0.2) X10*3/uL Abs Immat Gran (auto) 0.02 (0.00-0.03) X10*3/uL Absolute Neuts (auto) 3.4 (2.0-8.3) x10*3/uL Absolute Nucleated RBC 0.000 (0.0-0.012) X10*3/uL Nucleated RBC % (auto) 0.0 (0.0-0.2) /100WBC Sodium 137 (135-145) mmol/L Potassium 4.2 (3.3-5.1) mmol/L Chloride 103 (96-108) mmol/L Carbon Dioxide 28 (22-29) mmol/L Anion Gap 10 L (12-20) BUN 14 (9-16) mg/dL Creatinine 1.15 (0.5-1.4) mg/dL Estim Creat Clear Calc 76.8 Estimated GFR > 60 Random Glucose 102 (60-115) mg/dL Calcium 9.1 (8.4-10.2) mg/dL Troponin I High Sens < 3.5 (<3.5-35.0) ng/L Influenza Type A (PCR) (Negative) Influenza Type B (PCR) (Negative) RSV RNA Qual (PCR) (Negative) SARS-CoV-2 RNA (RT-PCR) (Negative) 06/20/21 Range/Units 20:54 WBC (4.8-10.8) X10*3/uL RBC (4.60-5.80) X10*6/uL Hgb (14.0-18.0) g/dl Hct (42.0-52.0) % MCV (80.0-98.0) fL MCH (27.0-33.0) pg MCHC (31.0-36.0) g/dl RDW (11.0-16.0) % Plt Count (160-400) X10*3/uL MPV (9.4-12.4) fL Immature Gran % (Auto) (0.0-0.4) % Neut % (Auto) (45-73) % Lymph % (Auto) (20-40) % [place] % (Auto) (2-11) % Eos % (Auto) (0-4) % Baso % (Auto) (0-2) % Lymph # (Auto) (1.2-4.9) X10*3/uL [place] # (Auto) (0.1-1.2) X10*3/uL Eos # (Auto) (0.0-0.4) X10*3/uL Baso # (Auto) (0.0-0.2) X10*3/uL Abs Immat Gran (auto) (0.00-0.03) X10*3/uL Absolute Neuts (auto) (2.0-8.3) x10*3/uL Absolute Nucleated RBC (0.0-0.012) X10*3/uL Nucleated RBC % (auto) (0.0-0.2) /100WBC Sodium (135-145) mmol/L Potassium (3.3-5.1) mmol/L Chloride (96-108) mmol/L Carbon Dioxide (22-29) mmol/L Anion Gap (12-20) BUN (9-16) mg/dL Creatinine (0.5-1.4) mg/dL Estim Creat Clear Calc Estimated GFR Random Glucose (60-115) mg/dL Calcium (8.4-10.2) mg/dL Troponin I High Sens (<3.5-35.0) ng/L Influenza Type A (PCR) POSITIVE A (Negative) Influenza Type B (PCR) NEGATIVE (Negative) RSV RNA Qual (PCR) NEGATIVE (Negative) SARS-CoV-2 RNA (RT-PCR) NEGATIVE (Negative) Discharge Plan Discharge Clinical Impression: Influenza A Patient Disposition: Home, Self-Care Instructions: Influenza (ED) Additional Instructions: drink plenty of fluids Tylenol/Motrin for fever cough syrup as prescribed report to ER if increased shortness of breath Prescriptions: New codeine-guaifenesin 10-100 mg/5 mL liquid 10 ml PO Q6H PRN (Reason: cough) Qty: 237 0RF
[2021-06-20 23:51] VITALS: BP 131/89; PULSE 98; RESP 16; TEMP 38.1; O2SAT 98
[2021-06-21] MEDS: Ibuprofen 600 MG TABLET PO (00:21)
[2021-06-21] MEDS: Benzonatate 100 MG CAPSULE 200 MG PO (00:21)
== END 2021-06-21 00:28 | disposition home or self-care (01) ==
PROVIDERS: Emergency Provider Internal Medicine; PCP Internal Medicine
DX: J11.1 Influenza due to unidentified influenza virus with other respiratory manifestations (principal); Z20.822 Contact with and (suspected) exposure to COVID-19; R50.9 Fever, unspecified
CPT/HCPCS: 0241U; 36415; 71046; 80048; 84484; 85025; 93005; 99283; 99284

== ENCOUNTER → 2021-07-02 08:05 | Outpatient (BNVA) | payer OTHER, SELFPAY | PROVIDERS: PCP Internal Medicine; Referring Provider Internal Medicine; Visit Provider Nurse Practitioner Family | DX: Z12.11 Encounter for screening for malignant neoplasm of colon (principal) | CPT/HCPCS: 99202 ==

== ENCOUNTER 2021-10-06 11:20 | Emergency (ER) | payer OTHER, SELFPAY ==
--- NOTE | ~2021-10-06 | CT_ITS ---
EXAMINATION: CT HEAD WITHOUT CONTRAST CLINICAL INFORMATION: Headache with nausea and vomiting COMPARISON: 09/30/2020 TECHNIQUE: Contiguous axial imaging was performed from the skull base to vertex without intravenous administration of contrast. This CT examination was performed using dose optimization techniques as appropriate, variously including the following: *Automated exposure control *Adjustment of mA and/or kV according to patient size (this includes techniques or standardized protocols for targeted exams where dose is matched to indication/reason for exam; i.e. extremities or head) *Use of iterative reconstruction technique DLP: 655 mGy-cm FINDINGS: There is no evidence for midline shift. There is no hemorrhage. The exam is felt to be unchanged from most recent previous. The basilar cisterns are patent. The posterior fossa risk grossly within normal limits. Once again there is low attenuation in the white matter in the left temporal lobe. This shows no significant change on this noncontrast scan compared to previous. Review of the bone windows demonstrates grossly clear sinuses. CT/CT head/brain wo con IMPRESSION: This exam is showing no change from most recent previous of noncontrast CT of 09/30/2020. There is certainly no evidence of midline shift or mass effect or hemorrhage. Once again abnormal low attenuation seen in the left temporal region consistent shows no significant change from most recent CT scan. If further evaluation is warranted consider MRI pre and postcontrast
[2021-10-06 11:51] VITALS: BP 148/100; PULSE 67; RESP 19; TEMP 36.6; O2SAT 98; BMI 28.2
[2021-10-06 14:20] LABS: MANUAL DIFF FLAG NO
[2021-10-06 14:26] LABS: Basophils Percent Auto 0.3 % (0-2); Eosinophils Percent Auto 0.4 % (0-4); Hematocrit 43.9 % (42.0-52.0); Hemoglobin 14.6 g/dl (14.0-18.0); Imm Gran Abs Auto 0.02 X10*3/uL (0.00-0.03); Imm Gran Pct Auto 0.3 % (0.0-0.4); Lymphocytes Absolute Auto 2.3 X10*3/uL (1.2-4.9); Lymphocytes Percent Auto 33.3 % (20-40); Mean Corpuscular HGB Conc 33.3 g/dl (31.0-36.0); Mean Corpuscular Hemoglobin 30.2 pg (27.0-33.0); Mean Corpuscular Volume 90.9 fL (80.0-98.0); Mean Platelet Volume 9.9 fL (9.4-12.4); Monocytes Absolute Auto 0.6 X10*3/uL (0.1-1.2); Monocytes Percent Auto 8.9 % (2-11); Neutrophils Absolute Auto 3.9 x10*3/uL (2.0-8.3); Neutrophils Percent Auto 56.8 % (45-73); Platelet Count 296 X10*3/uL (160-400); Red Blood Count 4.83 X10*6/uL (4.60-5.80); Red Cell Distribution Width 12.8 % (11.0-16.0); White Blood Count 6.9 X10*3/uL (4.8-10.8)
[2021-10-06 14:36] LABS: Alanine Aminotransferase 21 U/L (0-40); Albumin Level 4.7 g/dL (3.5-5.0); Alkaline Phosphatase 51 U/L (39-117); Anion Gap 13 (12-20); Aspartate Amino Transferase 19 U/L (5-37); Bilirubin Total 0.8 mg/dL (0.0-1.0); Blood Urea Nitrogen 14 mg/dL (9-16); Calcium 9.3 mg/dL (8.4-10.2); Carbon Dioxide 25 mmol/L (22-29); Chloride 104 mmol/L (96-108); Creatinine Clr Calc Pharmacy 91.3; Estimated Glomerular Filt Rate > 60; Glucose Random 84 mg/dL (60-115); Lactate Dehydrogenase 159 U/L (118-273); Lipase 12 U/L (8-78); Magnesium 1.9 mg/dL (1.6-2.6); Sodium 138 mmol/L (135-145); Total Protein 8.2 g/dL (6.5-8.0)
--- NOTE | 2021-10-06 16:26 | ED.GENADULT ---
HPI - General Adult General Chief complaint: Headache Stated complaint: Vomiting/STD testing/Headache Time Seen by Provider: 10/06/21 13:52 Source: patient Mode of arrival: ambulatory History of Present Illness HPI narrative: 46-year-old male with a past medical history of low-grade brain glioma, presenting to the ED complaining of intermittent fluctuating headache x few days with nausea and emesis x2 which has resolved. Also reports potential STI exposure, had unprotected intercourse 2 weeks ago, requesting STI testing. Patient asymptomatic at present. Reports headache improved at present, denies nausea, vision change/loss, weakness, numbness/tingling, abdominal pain, flank pain, penile lesions, scrotal pain, swelling, discharge Onset (ago): week(s) Location: head and genitals Related Data Previous Rx's Medication Instructions Recorded bisacodyl 5 mg tablet,delayed 10 mg PO ONCE 1 day #2 tabs 07/02/21 release (Dulcolax (bisacodyl)) polyethylene glycol 3350 17 238 g PO ONCE #238 grams 07/02/21 gram/dose oral powder (Miralax) doxycycline hyclate 100 mg tablet 100 mg PO BID 7 days #14 tabs 10/06/21 Allergies Allergy/AdvReac Type Severity Reaction Status Date / Time No Known Allergies Allergy Verified 08/13/21 13:54 Review of Systems Review of Systems: Constitutional: No Fever, No Chills, No Fatigue, No Malaise ENT/Mouth: No Ear Pain, No Nasal Congestion, No sore throat, No Rhinorrhea, No Swallowing Difficulty Eyes: No Eye Pain, No Swelling, No Redness, No Foreign Body, No Vision Changes Cardiovascular: No Chest Pain, No SOB Respiratory: No Cough, No Sputum, No Dyspnea Gastrointestinal: No Nausea, No Vomiting, No Diarrhea, No Constipation, No Abdominal pain Genitourinary: No Dysuria, No Urinary Frequency, No Hematuria, No Urinary Incontinence/retention, No Urgency, No Flank Pain, No Urinary Flow Changes, No Hesitancy, No penile/scrotal pain/swelling, no genital lesions, no penile discharge Musculoskeletal: No joint pain, No Myalgias, No Joint Swelling Skin: No Skin Lesions, No rash Neuro: No Weakness, No Numbness, No Paresthesias, No Dizziness, + Headache Yes all other systems are reviewed and are negative Constitutional: Constitutional: Reports as per HPI Neurologic: Denies Abnormal speech present [facility] Past Medical History Attestation statement: The following information was validated with the patient. Medical History Low grade glioma of brain Overweight (BMI 25.0-29.9) Potential exposure to STD Surgical History H/O circumcision Hx of appendectomy Family History Family History Mother No problems noted. Father No problems noted. 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 Cognitive needs: No Hearing needs: No Vision needs: No Physical Exam ED Vital Signs: Vital Signs - 24 hr 10/06/21 11:51 Temperature 98 F Pulse Rate 67 Respiratory Rate 19 Blood Pressure 148/100 H Pulse Oximetry 98 Oxygen Delivery Method Room Air BMI result Body Mass Index 28.2 Const General: cooperative, healthy appearing and no acute distress Orientation/consciousness: patient oriented x3 Limitations: no limitations HENMT Head: Yes normal to inspection and Yes atraumatic Ears: hearing grossly normal bilaterally General nose exam: Normal external nose present Face and sinus: Yes normal facial exam Throat: Yes posterior oropharynx normal, Yes tonsils normal and Yes uvula midline Eyes General: appearance normal, both eyes and all related structures Pupils: Equal, round and reactive pupils present EOM: EOMs intact bilaterally Neck Neck: Yes normal visual inspection, Yes full ROM and Yes no meningeal signs Resp Effort & Inspection: normal respiratory effort and no respiratory distress Auscultation: clear to auscultation bilaterally Cardio Rate: regular rate Heart sounds: S1 normal heart sound present and S2 normal heart sound present GI Inspection: Yes normal to inspection Palpation (GI): Soft to palpation, nontender, no guarding and not rigid Other: exam deferred General: Yes no CVA tenderness Back/Spine/Pelvis Back: no CVA tenderness Skin Rashes: no rashes Wounds: no wounds Neuro General: patient oriented x3, gait normal, tone normal, moves all extremities, no meningeal signs, no focal motor deficits and CN's II-XI intact bilaterally Cranial nerves: Yes CN's II-XII intact bilaterally and Yes Equal, round and reactive pupils present Cognition (Neuro): normal cognition Speech: No Abnormal speech present Gait exam (Neuro): Normal gait present Motor exam (neuro): 5/5 motor strength present throughout Extrem General: Yes normal to inspection Course Course Course Narrative: -labs unremarkable from this morning -patient prophylactically treated with IM Rocephin and p.o. doxycycline in the ED 1748-- CT head/brain wo con IMPRESSION: This exam is showing no change from most recent previous of noncontrast CT of 09/30/2020. There is certainly no evidence of midline shift or mass effect or hemorrhage. Once again abnormal low attenuation seen in the left temporal region consistent shows no significant change from most recent CT scan. If further evaluation is warranted consider MRI pre and postcontrast -1843--UA not infected. Results discussed with patient including worrisome signs and symptoms and strict return precautions and need to follow-up with [facility] and PCP Medical Decision Making MDM Narrative Medical decision making narrative: 46-year-old male with a past medical history of low-grade brain glioma, presenting to the ED complaining of intermittent fluctuating headache x few days with nausea and emesis x2 which has resolved. Also reports potential STI exposure, had unprotected intercourse 2 weeks ago. On exam hypertensive, NAD, nontoxic appearing, no focal neuro deficits, abdomen soft/nontender, no CVA tenderness. Concern for complicated migraine headache vs advancing glioma. Unlikely meningitis/encephalitis, ICH with intermittent symptoms. Concern for STI, patient asymptomatic. Would like prophylactic treatment. Plan: Labs, UA, STI testing, head CT Patient requesting HIV testing, will refer to [facility] [place] Medical Records Medical records reviewed: Yes I reviewed the patient's medical records. Lab Data Lab results reviewed: Yes I reviewed the patient's lab results. Result diagrams: 10/06/21 14:16 10/06/21 14:16 Labs: Lab Results 10/06/21 10/06/21 10/06/21 Range/Units 14:16 14:16 17:51 WBC 6.9 (4.8-10.8) X10*3/uL RBC 4.83 (4.60-5.80) X10*6/uL Hgb 14.6 (14.0-18.0) g/dl Hct 43.9 (42.0-52.0) % MCV 90.9 (80.0-98.0) fL MCH 30.2 (27.0-33.0) pg MCHC 33.3 (31.0-36.0) g/dl RDW 12.8 (11.0-16.0) % Plt Count 296 (160-400) X10*3/uL MPV 9.9 (9.4-12.4) fL Immature Gran % (Auto) 0.3 (0.0-0.4) % Neut % (Auto) 56.8 (45-73) % Lymph % (Auto) 33.3 (20-40) % [place] % (Auto) 8.9 (2-11) % Eos % (Auto) 0.4 (0-4) % Baso % (Auto) 0.3 (0-2) % Lymph # (Auto) 2.3 (1.2-4.9) X10*3/uL [place] # (Auto) 0.6 (0.1-1.2) X10*3/uL Eos # (Auto) 0.0 (0.0-0.4) X10*3/uL Baso # (Auto) 0.0 (0.0-0.2) X10*3/uL Abs Immat Gran (auto) 0.02 (0.00-0.03) X10*3/uL Absolute Neuts (auto) 3.9 (2.0-8.3) x10*3/uL Absolute Nucleated RBC 0.000 (0.0-0.012) X10*3/uL Nucleated RBC % (auto) 0.0 (0.0-0.2) /100WBC Sodium 138 (135-145) mmol/L Potassium 4.0 (3.3-5.1) mmol/L Chloride 104 (96-108) mmol/L Carbon Dioxide 25 (22-29) mmol/L Anion Gap 13 (12-20) BUN 14 (9-16) mg/dL Creatinine 0.99 (0.5-1.4) mg/dL Estim Creat Clear Calc 91.3 Estimated GFR > 60 Random Glucose 84 (60-115) mg/dL Calcium 9.3 (8.4-10.2) mg/dL Magnesium 1.9 (1.6-2.6) mg/dL Total Bilirubin 0.8 (0.0-1.0) mg/dL AST 19 (5-37) U/L ALT 21 (0-40) U/L Alkaline Phosphatase 51 (39-117) U/L Lactate Dehydrogenase 159 (118-273) U/L Total Protein 8.2 H (6.5-8.0) g/dL Albumin 4.7 (3.5-5.0) g/dL Lipase 12 (8-78) U/L Urine Color DK YELLOW Urine Appearance CLOUDY Urine pH 6.0 (5.0-8.0) Ur Specific [place] >= 1.030 H (1.005-1.025) Urine Protein NEG (NEG-TRACE) MG/DL Urine Glucose (UA) NEG (NEG) MG/DL Urine Ketones 15 (NEG) MG/DL Urine Blood 1+ H (NEG) Urine Nitrite NEG (NEG) Ur Leukocyte Esterase NEG (NEG) Urine RBC 0-2 (0) /HPF Urine WBC 0 (0-4) /HPF Ur Squamous Epith Cells TRACE /LPF Urine Bacteria NONE /LPF Discharge Plan Discharge Clinical Impression: Headache, Potential exposure to STD Patient Disposition: Home, Self-Care Instructions: Sexually Transmitted Diseases (ED), General Headache (ED) Additional Instructions: Your blood work was reassuring today in the emergency department. Head CT is unchanged from priors. Your tested for gonorrhea and chlamydia as well as syphilis, the results take 48-72 hours to return, if anything is positive we will call you. You were empirically treated for gonorrhea and chlamydia. Continue taking doxycycline as prescribed. Avoid the sun while on doxycycline as makes you sensitive to the sun. Avoid any sexual contact until we know the results of your studies. Follow-up with [facility] for further STI testing Prescriptions: New doxycycline hyclate 100 mg tablet 100 mg PO BID 7 Days Qty: 14 0RF No Action bisacodyl [Dulcolax (bisacodyl)] 5 mg tablet,delayed release (DR/EC) 10 mg PO ONCE 1 Days Qty: 2 0RF Rx Instructions: take 2 tabs at noon the day before your colonoscopy polyethylene glycol 3350 [Miralax] 17 gram/dose powder 238 g PO ONCE Qty: 238 0RF Rx Instructions: As directed by gastroenterology department at [facility] Referrals: Dio Oden MD [Primary Care Provider] - Stand Alone Forms: Work/School Release
[2021-10-06] MEDS: cefTRIAXone sodium 500 MG, Lidocaine HCl 1 % MPF 1 ML IM (17:43)
[2021-10-06 18:28] LABS: Appearance Urine CLOUDY; Color Urine DK YELLOW; Glucose Urine UA NEG (NEG); Leukocyte Esterase Urine NEG (NEG); Nitrite Urine NEG (NEG); Specific Gravity - Urine >= 1.030 (1.005-1.025); UACC Culture Trigger NO; Urine Blood 1+ (NEG); Urine Ketones 15 MG/DL (NEG); Urine Protein NEG (NEG-TRACE)
[2021-10-06 18:41] LABS: RBC Urine 0-2 /HPF (0); Squamous Epithelial Cell Urine TRACE /LPF; WBC Urine 0 /HPF (0-4)
[2021-10-07 08:57] LABS: CT PCR NOT DETECTED (Not Detect.); NG PCR NOT DETECTED (Not Detect.)
[2021-10-07 10:26] LABS: Syphilis Screen Nonreactive (Nonreactive)
== END 2021-10-06 21:23 | disposition home or self-care (01) ==
PROVIDERS: Physician Assistant; Physician Assistant Medical; Emergency Provider Emergency Medicine; PCP Internal Medicine
DX: R51.9 Headache, unspecified (principal); Z20.2 Contact with and (suspected) exposure to infections with a predominantly sexual mode of transmission; Z79.899 Other long term (current) drug therapy
CPT/HCPCS: 36415; 70450; 80053; 81001; 83615; 83690; 83735; 85025; 86780; 87491; 87591; 96360; 99282; 99284; J0696

== ENCOUNTER 2021-10-18 08:27 | Day surgery (SDC) | payer OTHER, SELFPAY ==
[2021-10-14 10:19] VITALS: BMI 26.4
--- NOTE | 2021-10-17 09:59 | HO.ANESPROP2 ---
Documented by User: Marilynn Duvall NP 10/17/21 10:00 HPI - Anesthesia Eval Consult details Narrative: 46yo M for Colonoscopy low grade glioma, stable for years [facility] Active Problems Active Problems: All Active Problems (Updated 10/07/21 @ 00:00 by Lydia Salinas) Annual physical exam (Acute) Colon cancer screening (Acute) Overweight (BMI 25.0-29.9) (Acute) Potential exposure to STD (Acute) Low grade glioma of brain (Acute) Past Medical History Medical History Low grade glioma of brain Overweight (BMI 25.0-29.9) Potential exposure to STD Family History Family History Mother No problems noted. Father No problems noted. 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 Rate : 099 BPM ? ? Atrial Rate : 099 BPM ?? P-R Int : 136 ms? QRS Dur : 080 ms ? ? QT Int : 324 ms ? ? ? P-R-T Axes : 066 -01 030 degrees ?? QTc Int : 415 ms ? Normal sinus rhythm Normal ECG When compared with ECG of 01-JAN-2021 01:44, Vent. rate has increased BY? 34 BPM Assessment and Plan Assessment Anesthesia Assessment: Chart Reviewed Documented by User: Ledy Montenegro MD 10/18/21 10:01 PMFSH Past Medical History Medical History Low grade glioma of brain Overweight (BMI 25.0-29.9) Potential exposure to STD Family History Family History Mother No problems noted. Father No problems noted. Surgical History Surgical History H/O circumcision Hx of appendectomy History of Problems with Anesthesia: No Social History Social History Housing: Apartment Alcohol intake: never Patient Tobacco Use Status: Never used Tobacco Second Hand Smoke Exposure: Yes Use of substances other than those prescribed or required for medical reasons: No Are you DNR?: No Advance Directives: No Advance Directives Information Provided: Yes Recently lost weight without trying: No Nutrition Risks: No Nutritional Risk service: No Current occupational status: employed Current occupation: [employer] Cognitive needs: No Hearing needs: No Vision needs: No Meds Allergies Allergy/AdvReac Type Severity Reaction Status Date / Time No Known Allergies Allergy Verified 08/13/21 13:54 Assessment and Plan Assessment Anesthesia Assessment: Anesthesia Plan Discussed Final Anesthetic Review History of Problems with Anesthesia: No NPO: Yes ASA Class: II Final Preanesthetic Review: Meds/Allgs Chart Reviewed, Consent Obtained/Reviewed and Anes Risks/Benef Reviewed Patient Risk: Low Procedure Risk: Low Anesthetic Plan Anesthetic Plan: MAC: Disposition: Standard PACU
[2021-10-18 09:01] VITALS: BMI 25.8
--- NOTE | 2021-10-18 09:05 | MHC.SHP ---
Pre-Procedural Eval Section A Date of Service: 10/18/21 The patient is an INPATIENT: No The History & Physical has been completed within 30 days and I have reviewed it.: No Section B Chief Complaint: screening Details of Present Illness: Colon cancer screening Relevant Family History (Specify if Yes): No Relevant Social History: None Present Medications: see Short Stay Collaborative assessment Medical History: Significant History (Low grade glioma of brain Overweight (BMI 25.0-29.9) Potential exposure to STD) History of Previous Operations: Relevant previous surgery/procedure and date(s) (H/O circumcision Hx of appendectomy) Allergies: Allergies Allergy/AdvReac Type Severity Reaction Status Date / Time No Known Allergies Allergy Verified 08/13/21 13:54 Review of Systems Sugical H&P ROS: Negative: Constitution, Cardiovascular, Respiratory and Gastrointestinal Exam Surgical H&P Exam: Normal: Heart, Normal: Lungs, Normal: Extremities and Normal: Abdomen Plan Diagnosis/Plan: Unchanged I have reviewed the history and physical and performed a pertinent physical examination on my patient. No changes have occurred unless specified.
--- NOTE | 2021-10-18 09:07 | P.OP_ITS ---
Operative Note Operative Note Date of Service: 10/18/21 Narrative: Pre-op diagnosis: Colon cancer screening Post-op diagnosis:?other (Diverticulosis) Procedure: COLONOSCOPY TILL CECUM Consent: Indications for the procedure and potential complications of bleeding, perforation, reaction to medications and missed diagnosis were discussed with the patient and informed consent was obtained. Instrument: Olympus PCF H 190 L variable stiffness pediatric colonoscope Monitoring: Vital signs and clinical assessment, intermittent blood pressure monitoring, continuous EKG monitoring, Pulse oximetry and Carbon Dioxide monitoring were done throughout the procedure. Colon withdrawl time was 15 minutes. Procedure: The patient was placed in the left lateral decubitis position and pre-procedure medications were administered. After a digital rectal examination of the ano-rectum, the video colonoscope was inserted into the rectum and advanced through the colon to the cecum. The colonoscope was slowly withdrawn in a retrograde panoramic fashion and the colon mucosa was carefully examined including a retroflexed view of the rectum. Findings and interventions are described below. Procedure Difficulty: Without difficulty Findings: Terminal Ileum: Not evaluated Cecum:? Partially evaluated due to suboptimal prep Ascending Colon: ? Partially evaluated due to suboptimal prep Scattered moderate diverticulosis throughout the colon Transverse Colon:? Scattered moderate diverticulosis throughout the colon Descending Colon:? Scattered moderate diverticulosis throughout the colon Sigmoid Colon:? Scattered moderate diverticulosis throughout the colon Rectum:? Normal Ano-rectum:? Normal Colon preparation:? Good in the left and transverse colon and? poor in the right colon with undigested vegetable matter which could not be suction despite copious irrigation Impression and Post Procedure Diagnosis: Colonoscopy Findings: No polyps were detected Moderate diverticulosis seen in the entire colon Plan: Patient has an appointment on 11/01/21 in the GI [facility] with Mile Roy FNP- [facility]. Repeat Colonoscopy in 1-2 years due to poor prep in the right colon (Pt reports having solid food at noon yeserday Above findings were reviewed with the patient and diverticulosis handout was given in the discharge area Surgeon: Latoya Cullen MD Anesthesia:?MAC Was an Fisher Sponge Hooking used for this Procedure?:?Yes Fisher Sponge Hooking:?Joy Lee Estimated blood loss (mL):?0 Pathology:?none sent Condition:?stable Disposition:?PACU
[2021-10-18 09:12] VITALS: BP 139/80; PULSE 76; RESP 18; TEMP 36.7; O2SAT 98
[2021-10-18] MEDS: Lactated Ringers 1,000 ML 100 ML IVCONT (09:23)
[2021-10-18 10:36] VITALS: BP 94/56; PULSE 64; RESP 16; TEMP 36.1; O2SAT 98
[2021-10-18 10:51] VITALS: BP 106/69; PULSE 56; RESP 15; TEMP 36.2; O2SAT 98
[2021-10-18 11:06] VITALS: BP 126/79; PULSE 66; RESP 17; TEMP 36.1; O2SAT 100
[2021-10-18 11:21] VITALS: BP 133/76; PULSE 53; RESP 17; TEMP 36.1; O2SAT 99
[2021-10-18 11:36] VITALS: BP 101/61; PULSE 58; RESP 16; TEMP 36.1; O2SAT 99
--- NOTE | 2021-10-18 15:52 | PHA.MEDREC ---
Pharmacy Consult ? Medication Reconciliation Pharmacy has completed the medication reconciliation.
== END 2021-10-18 12:09 | disposition home or self-care (01) ==
PROVIDERS: PCP Internal Medicine; Visit Provider Internal Medicine Gastroenterology
PROC: 0DJD8ZZ Inspection of Lower Intestinal Tract, Via Natural or Artificial Opening Endoscopic (ICD-10-PCS; CPT 45378; principal; 2021-10-18 10:10)
DX: Z12.11 Encounter for screening for malignant neoplasm of colon (principal); K57.30 Diverticulosis of large intestine without perforation or abscess without bleeding; C71.9 Malignant neoplasm of brain, unspecified; Z79.899 Other long term (current) drug therapy; E66.3 Overweight; Z68.26 Body mass index [BMI] 26.0-26.9, adult
CPT/HCPCS: 45378; J3010

== ENCOUNTER 2021-10-29 07:46 | Emergency (ER) | payer OTHER, SELFPAY ==
[2021-10-29 07:53] VITALS: BP 126/81; PULSE 78; RESP 18; TEMP 36.3; O2SAT 99; BMI 27.3
--- NOTE | 2021-10-29 08:18 | ED.SKABFB ---
HPI - Skin/Abscess/Foreign Bdy General Chief complaint: Skin/Abscess/Foreign Body Stated complaint: Allergic reaction Time Seen by Provider: 10/29/21 08:04 Source: patient Mode of arrival: ambulatory Limitations: no limitations History of Present Illness HPI narrative: 46-year-old male who presents with 2 crusted lesions over the chin which are draining some clear liquid noticed last night with some local redness. Patient reports some itching at the site. He denies any pain or burning. No fevers or chills. Patient reports that he did use a new soap in the last week for shaving. Related Data Previous Rx's Medication Instructions Recorded doxycycline hyclate 100 mg tablet 100 mg PO BID 7 days #14 tabs 10/06/21 mupirocin 2 % topical ointment 1 appl topical TID #22 grams 10/29/21 Allergies Allergy/AdvReac Type Severity Reaction Status Date / Time No Known Allergies Allergy Verified 08/13/21 13:54 Review of Systems Review of Systems: Yes all other systems are reviewed and are negative Constitutional: Constitutional: Reports no additional constitutional complaints, Denies body ache(s), Denies chills, Denies fever(s), Denies headache(s) and Denies weakness Eyes: Eyes: Reports no additional eye complaints and Denies change in vision ENT: Reports system reviewed and no additional complaints, except as documented, Denies dizziness, Denies headache(s), Denies nasal congestion, Denies nasal discharge and Denies neck pain Cardiovascular: Cardiovascular: Reports no additional cardiovascular complaints, Denies chest pain, Denies leg edema and Denies dyspnea Respiratory: Respiratory: Reports no additional respiratory complaints, Denies cough and Denies dyspnea Gastrointestinal: Gastrointestinal: Reports no additional gastrointestinal complaints, Denies abdominal pain, Denies diarrhea, Denies nausea and Denies vomiting Genitourinary: Genitourinary: Denies urinary incontinence Musculoskeletal: Musculoskeletal: Reports no additional musculoskeletal complaints, Denies back pain, Denies arthralgias, Denies joint swelling, Denies neck pain, Denies numbness and Denies tingling Integumentary/Breasts: Skin/Breast: Reports system reviewed and no additional complaints, except as docu, Reports erythema, Denies rash and Reports wounds Neurologic: Reports system reviewed and no additional complaints, except as documented, Denies Abnormal speech present, Denies dizziness, Denies headache(s), Denies numbness, Denies tingling and Denies weakness PMF Past Medical History Attestation statement: The following information was validated with the patient. Source: old records reviewed and nursing notes reviewed Medical History Low grade glioma of brain Overweight (BMI 25.0-29.9) Potential exposure to STD Surgical History H/O circumcision Hx of appendectomy Hx of colonoscopy Family History Family History Mother No problems noted. Father No problems noted. Social History Social History Housing: Apartment Alcohol intake: never Patient Tobacco Use Status: Never used Tobacco Second Hand Smoke Exposure: Yes Advance Directives: No Advance Directives Information Provided: No service: No Current occupational status: employed Current occupation: [employer] Cognitive needs: No Hearing needs: No Vision needs: No Physical Exam Vital Signs: Vital Signs: Last Vital Signs Temp 97.3 F 10/29/21 07:53 Pulse 78 10/29/21 07:53 Resp 18 10/29/21 07:53 BP 126/81 10/29/21 07:53 Pulse Ox 99 10/29/21 07:53 O2 Del Method 10/29/21 07:53 BMI result Body Mass Index 27.3 Const: General: cooperative, healthy appearing, comfortable and no acute distress Orientation/consciousness: patient oriented x3 Limitations: no limitations HEENT: Head: Yes normal to inspection Head images: 1. Two honey-crusted lesions with some erythema at the base Ears: hearing grossly normal bilaterally General nose exam: Normal external nose present Face and sinus: Yes normal facial exam Mouth: Normal oral and palatal mucosa present Throat: Yes posterior oropharynx normal Eyes: General: appearance normal, both eyes and all related structures Pupils: Equal, round and reactive pupils present Neck: Neck: Yes normal visual inspection Chest: Chest palpation & inspection: normal inspection of the chest Resp: Effort & Inspection: normal respiratory effort Auscultation: clear to auscultation bilaterally Cardio: Rate: regular rate Rhythm: regular rhythm Peripheral pulses: Peripheral pulses 2+ throughout GI: Inspection: Yes normal to inspection Palpation (GI): Soft to palpation and nontender Auscultation: normal bowel sounds Back/Spine/Pelvis: Thoracic/Lumbar Spine: thoracic and lumbar spine normal to inspection Skin: General skin exam: no rashes or lesions noted Neuro: General: patient oriented x3, no focal motor deficits and normal sensation to monofilament Cranial nerves: Yes Equal, round and reactive pupils present Cognition (Neuro): normal cognition Speech: No Abnormal speech present Gait exam (Neuro): Normal gait present Motor exam (neuro): 5/5 motor strength present throughout Extrem: General: Yes normal to inspection MDM - Skin/Abscess/Foreign Bdy MDM Narrative Medical decision making narrative: 46-year-old male here with 2 honey-crusted lesions noted over the chin since last night with some local itching. Exam is consistent with impetigo. Will treat w/ mupirocin Medical Records Attestation: I reviewed the patient's medical records. Lab Data Attestation: I reviewed the patient's lab results. Discharge Plan Discharge Clinical Impression: Impetigo Patient Disposition: Home, Self-Care Instructions: Impetigo (ED) Additional Instructions: Wash face with soap and water daily Wash hands after touching face Avoid shaving Prescriptions: New mupirocin 2 % ointment 1 appl topical TID Qty: 22 0RF No Action doxycycline hyclate 100 mg tablet 100 mg PO BID 7 Days Qty: 14 0RF Referrals: Dio Oden MD [Primary Care Provider] - 1 week Stand Alone Forms: Work/School Release
== END 2021-10-29 08:25 | disposition home or self-care (01) ==
PROVIDERS: Emergency Provider Student in an Organized Health Care Education/Training Program; PCP Internal Medicine
DX: L01.00 Impetigo, unspecified (principal)
CPT/HCPCS: 99282; 99283

== ENCOUNTER 2021-12-26 07:36 | Outpatient (REF) | payer OTHER, SELFPAY ==
[2021-12-26 09:18] LABS: Cholesterol 222 mg/dL; HDL Cholesterol 101 mg/dL; LDL Cholesterol Calculated 112 mg/dl; Triglycerides 49 mg/dL
[2021-12-26 09:19] LABS: HIV AB/AG Nonreactive (Nonreactive)
[2021-12-26 09:27] LABS: TSH reflex Free T4 0.53 uIU/mL (0.32-4.0); Vitamin D 25-OH Total 27.6 ng/mL (>30)
[2021-12-26 10:07] LABS: Vitamin B12 398 pg/mL (200-900)
== END 2021-12-26 07:37 | disposition home or self-care (01) ==
LOC: HO.LAB 07:36
PROVIDERS: PCP Internal Medicine; Visit Provider Internal Medicine
DX: E55.9 Vitamin D deficiency, unspecified (principal); E53.8 Deficiency of other specified B group vitamins; R41.3 Other amnesia; E78.00 Pure hypercholesterolemia, unspecified; Z20.2 Contact with and (suspected) exposure to infections with a predominantly sexual mode of transmission
CPT/HCPCS: 36415; 80061; 82306; 82607; 82746; 84443; 87389

== ENCOUNTER 2022-03-03 06:59 | Outpatient (REF) | payer OTHER, SELFPAY ==
[2022-03-03 07:13] LABS: MANUAL DIFF FLAG NO
[2022-03-03 07:43] LABS: Basophils Percent Auto 0.5 % (0-2); Eosinophils Absolute Auto 0.1 X10*3/uL (0.0-0.4); Eosinophils Percent Auto 1.1 % (0-4); Hematocrit 41.9 % (42.0-52.0); Hemoglobin 13.7 g/dl (14.0-18.0); Imm Gran Abs Auto 0.01 X10*3/uL (0.00-0.03); Imm Gran Pct Auto 0.2 % (0.0-0.4); Lymphocytes Absolute Auto 1.6 X10*3/uL (1.2-4.9); Lymphocytes Percent Auto 37.5 % (20-40); Mean Corpuscular HGB Conc 32.7 g/dl (31.0-36.0); Mean Corpuscular Hemoglobin 29.7 pg (27.0-33.0); Mean Corpuscular Volume 90.9 fL (80.0-98.0); Mean Platelet Volume 9.7 fL (9.4-12.4); Monocytes Absolute Auto 0.4 X10*3/uL (0.1-1.2); Monocytes Percent Auto 9.9 % (2-11); Neutrophils Absolute Auto 2.2 x10*3/uL (2.0-8.3); Neutrophils Percent Auto 50.8 % (45-73); Platelet Count 273 X10*3/uL (160-400); Red Blood Count 4.61 X10*6/uL (4.60-5.80); Red Cell Distribution Width 13.2 % (11.0-16.0); White Blood Count 4.4 X10*3/uL (4.8-10.8)
[2022-03-03 08:03] LABS: Appearance Urine Clear; Color Urine Yellow; Glucose Urine UA Negative (Negative); Leukocyte Esterase Urine Negative (Negative); Nitrite Urine Negative (Negative); PH 5.5 (5.0-9.0); Specific Gravity - Urine >= 1.030 (1.005-1.025); UMIC TRIGGER UACC YES; Urine Blood Trace (Negative); Urine Ketones Negative (Negative); Urine Protein Trace mg/dL (Neg-Trace)
[2022-03-03 08:08] LABS: Bacteria Urine None Seen (None Seen); Hyaline Casts Urine 0-2 /LPF (0-2); RBC Urine 0-2 /HPF (0-2); Squamous Epithelial Cell Urine 0-2 /HPF (0-2); WBC Urine 0-5 /HPF (0-5)
[2022-03-03 09:31] LABS: Alanine Aminotransferase 21 U/L (0-40); Albumin Level 4.3 g/dL (3.5-5.0); Alkaline Phosphatase 47 U/L (39-117); Anion Gap 14 (12-20); Aspartate Amino Transferase 18 U/L (5-37); Bilirubin Total 0.5 mg/dL (0.0-1.0); Blood Urea Nitrogen 17 mg/dL (9-16); Calcium 9.2 mg/dL (8.4-10.2); Carbon Dioxide 26 mmol/L (22-29); Chloride 105 mmol/L (96-108); Cholesterol 217 mg/dL; Estimated Glomerular Filt Rate > 60; Glucose Fasting 84 mg/dL (60-99); HDL Cholesterol 100 mg/dL; LDL Cholesterol Calculated 110 mg/dl; Potassium 4.5 mmol/L (3.3-5.1); Prostate Specific Antigen Scr 0.75 ng/mL (<0.05-4.0); Sodium 140 mmol/L (135-145); TSH reflex Free T4 0.56 uIU/mL (0.32-4.0); Total Protein 7.3 g/dL (6.5-8.0); Triglycerides 39 mg/dL; Vitamin D 25-OH Total 24.2 ng/mL (>30)
== END 2022-03-03 07:00 | disposition home or self-care (01) ==
LOC: HO.LAB 06:59
PROVIDERS: PCP Internal Medicine; Visit Provider Internal Medicine
DX: Z00.00 Encounter for general adult medical examination without abnormal findings (principal); Z12.5 Encounter for screening for malignant neoplasm of prostate; E78.00 Pure hypercholesterolemia, unspecified; E66.3 Overweight; E55.9 Vitamin D deficiency, unspecified
CPT/HCPCS: 36415; 80053; 80061; 81001; 81003; 82306; 84153; 84443; 85025

== ENCOUNTER 2022-03-13 09:43 | Emergency (ER) | payer OTHER, SELFPAY ==
--- NOTE | 2022-03-13 09:52 | ED.GENADULT ---
HPI - General Adult General Chief complaint: Allergic Reaction Stated complaint: allergic reaction, swollen face, sob Time Seen by Provider: 03/13/22 09:52 Source: patient Mode of arrival: ambulatory Limitations: no limitations History of Present Illness HPI narrative: Patient is a 46 year old assigned male at with no reported medical history presenting to the emergency department today with an allergic reaction. Patient states that he attempted to use hair dye on his acuña this morning when he developed redness and swelling on his chin. Patient denies any dizziness, lightheadedness, abdominal pain, nausea, vomiting, fever, chills, blurry vision, double vision, loss of vision, chest pain, difficulty breathing, shortness of breath, back pain, night sweats, pain with urination, increased urinary frequency, increased urinary urgency, blood in his urine or stool, syncope or a near syncopal episode, recent trauma or falls, bowel incontinence, bladder incontinence, bowel retention, bladder retention, or any other complaints at this time. Onset (ago): hour(s) Location: face Radiation: non-radiation Severity: mild Severity scale (1-10): 3 Quality: dull Relieving factors: none Exacerbating factors: none Associated symptoms: rash Treatments prior to arrival: none Related Data Previous Rx's Medication Instructions Recorded cholecalciferol (vitamin D3) 25 25 mcg PO DAILY #90 tabs 03/07/22 mcg (1,000 unit) tablet ibuprofen 600 mg tablet 600 mg PO Q8H PRN pain #20 tabs 03/07/22 prednisone 20 mg tablet 20 mg PO DAILY 7 days #7 tabs 03/13/22 Allergies Allergy/AdvReac Type Severity Reaction Status Date / Time No Known Allergies Allergy Verified 03/07/22 15:23 Review of Systems Constitutional: Constitutional: Reports no additional constitutional complaints, Denies chills, Denies fever(s) and Denies night sweats Eyes: Eyes: Reports no additional eye complaints, Denies blurry vision, Denies change in vision, Denies diplopia, Denies eye discharge, Denies loss of vision and Denies eye pain ENT: Denies dizziness Cardiovascular: Cardiovascular: Reports no additional cardiovascular complaints, Denies chest pain, Denies lightheadedness, Denies Loss of Consciousness and Denies dyspnea Respiratory: Respiratory: Reports no additional respiratory complaints and Denies dyspnea Gastrointestinal: Gastrointestinal: Reports no additional gastrointestinal complaints, Denies abdominal pain, Denies melena, Denies hematochezia, Denies change in bowel habits and Denies change in stool character Genitourinary: Genitourinary: Reports no additional male genitourinary complaints, Denies hematuria, Denies oliguria, Denies difficulty urinating, Denies dysuria, Denies urinary frequency, Denies urinary hesitancy, Denies urinary incontinence and Denies urinary urgency Musculoskeletal: Musculoskeletal: Reports no additional musculoskeletal complaints, Denies numbness and Denies tingling Integumentary/Breasts: Comments: redness and swelling to the chin Neurologic: Denies dizziness, Denies loss of vision, Denies numbness and Denies tingling Psychiatric: Psychiatric: Reports no additional psychiatric complaints Endocrine: Endocrine: Reports no additional endocrine complaints Hematologic/Lymphatic: Hematologic/Lymphatic: Reports no additional hematologic/lymphatic complaints Allergic/Immunologic: Allergic/Immunologic: Reports no additional allergic/immunologic complaints PMFSH Past Medical History Attestation statement: The following information was validated with the patient. Source: old records reviewed and nursing notes reviewed Medical History Diverticulosis Low grade glioma of brain Overweight (BMI 25.0-29.9) Potential exposure to STD Surgical History H/O circumcision Hx of appendectomy Hx of colonoscopy Family History Family History Mother No problems noted. Father No problems noted. Social History Social History Housing: Apartment Alcohol intake: never Patient Tobacco Use Status: Never used Tobacco Smoked in Last 30 Days: No Second Hand Smoke Exposure: Yes Use of substances other than those prescribed or required for medical reasons: No Advance Directives: No Advance Directives Information Provided: No service: No Current occupational status: employed Current occupation: [employer] Cognitive needs: No Hearing needs: No Vision needs: No Physical Exam ED Vital Signs: Vital Signs - 24 hr 03/13/22 09:54 Temperature 97.9 F Pulse Rate 81 Respiratory Rate 16 Blood Pressure 136/94 H Pulse Oximetry 99 Oxygen Delivery Method Room Air BMI result Body Mass Index 29.0 Const General: cooperative, no acute distress, alert and awake Nutritional Appearance: well nourished Orientation/consciousness: patient oriented x3 Limitations: no limitations HENMT Head: Yes normal to inspection and Yes atraumatic Ears: hearing grossly normal bilaterally and external ears normal General nose exam: Normal external nose present, no nasal discharge noted and no epistaxis Face and sinus: Yes normal facial exam, No abrasion and No laceration Mouth: Normal oral and palatal mucosa present, no drooling and no muffled voice Eyes General: appearance normal, both eyes and all related structures Periorbital: periorbital findings normal Eyelids: Yes eyelids normal Conjunctivae: conjunctivae normal Pupils: Equal, round and reactive pupils present EOM: EOMs intact bilaterally Neck Neck: Yes normal visual inspection, Yes full ROM and Yes no lymphadenopathy Chest Chest palpation & inspection: normal inspection of the chest Resp Effort & Inspection: normal respiratory effort and able to speak in complete sentences Auscultation: clear to auscultation bilaterally Cardio Rate: regular rate Rhythm: regular rhythm GI Inspection: Yes normal to inspection Skin Other: minimal erythema and swelling to the chin Neuro General: patient oriented x3 and moves all extremities Cranial nerves: Yes Equal, round and reactive pupils present Cognition (Neuro): normal cognition Motor exam (neuro): 5/5 motor strength present throughout Sensory Exam: Normal double simultaneous stimulation for sensation Coordination: [id number] test normal Extrem General: Yes normal to inspection, Yes full ROM and Yes capillary refill normal Psych Appearance: grossly normal Mental Status: mental status grossly normal Affect: normal affect Attitude: cooperative Thought process: Normal thought process present Thought content: Normal thought content present Insight: Good insight present (Psych) Medications Administered Discontinued Medications Generic Name Dose Route Start Last Admin Trade Name Chris PRN Reason Stop Dose Admin Diphenhydramine HCl 25 mg 03/13/22 09:55 03/13/22 10:13 Diphenhydramine Hcl 50 Mg/Ml Vial IVPUSH 03/13/22 09:56 25 mg ONCE ONE Administration Medical Decision Making Medical Decision Making [facility] Narrative: Patient is a 46 year old assigned male at with no reported medical history presenting to the emergency department today with an allergic reaction. Patient's physical exam showed erythema and swelling to the chin but was otherwise unremarkable. Patient's blood work was unremarkable. I explained my physical exam findings as well as all test results to the patient. I answered all questions asked by the patient. Patient received IV Solu-medrol and IV benadryl which he stated helped his symptoms significantly. I stressed the importance of the patient taking his medication as prescribed. I stressed the importance of the patient following up with his primary care provider. I stressed the importance of the patient not using the hair dye ever again. I stressed the importance of the patient returning to the emergency department immediately if his symptoms were to worsen or if he were to develop any dizziness, shortness of breath, difficulty breathing, chest pain, blurry vision, loss of vision, nausea, vomiting, abdominal pain, fever, chills, back pain, or any other complaints. Patient verbalized agreement and understanding with this treatment plan and discharge. Differential Diagnosis Differential Diagnoses: The differential diagnosis associated with the presentation includes allergic reaction Lab Data MDM Lab Attestation statement: I reviewed the patient's lab results. Result Diagrams: 03/13/22 10:08 03/13/22 10:08 Labs: Lab Results 03/13/22 03/13/22 Range/Units 10:08 10:08 WBC 6.1 (4.8-10.8) X10*3/uL RBC 4.67 (4.60-5.80) X10*6/uL Hgb 14.0 (14.0-18.0) g/dl Hct 42.7 (42.0-52.0) % MCV 91.4 (80.0-98.0) fL MCH 30.0 (27.0-33.0) pg MCHC 32.8 (31.0-36.0) g/dl RDW 13.0 (11.0-16.0) % Plt Count 254 (160-400) X10*3/uL MPV 9.6 (9.4-12.4) fL Immature Gran % (Auto) 0.3 (0.0-0.4) % Neut % (Auto) 66.7 (45-73) % Lymph % (Auto) 21.7 (20-40) % Banner % (Auto) 9.3 (2-11) % Eos % (Auto) 1.7 (0-4) % Baso % (Auto) 0.3 (0-2) % Lymph # (Auto) 1.3 (1.2-4.9) X10*3/uL Banner # (Auto) 0.6 (0.1-1.2) X10*3/uL Eos # (Auto) 0.1 (0.0-0.4) X10*3/uL Baso # (Auto) 0.0 (0.0-0.2) X10*3/uL Abs Immat Gran (auto) 0.02 (0.00-0.03) X10*3/uL Absolute Neuts (auto) 4.0 (2.0-8.3) x10*3/uL Absolute Nucleated RBC 0.000 (0.0-0.012) X10*3/uL Nucleated RBC % (auto) 0.0 (0.0-0.2) /100WBC Sodium 137 (135-145) mmol/L Potassium 4.1 (3.3-5.1) mmol/L Chloride 103 (96-108) mmol/L Carbon Dioxide 28 (22-29) mmol/L Anion Gap 10 L (12-20) BUN 14 (9-16) mg/dL Creatinine 0.94 (0.5-1.4) mg/dL Estim Creat Clear Calc 97.4 Estimated GFR > 60 Random Glucose 85 (60-115) mg/dL Calcium 9.0 (8.4-10.2) mg/dL AST 18 (5-37) U/L ALT 23 (0-40) U/L Alkaline Phosphatase 46 (39-117) U/L C-Reactive Protein 0.13 (< or = 0.50) mg/dL Total Protein 7.4 (6.5-8.0) g/dL Albumin 4.3 (3.5-5.0) g/dL Discharge Plan Discharge Clinical Impression: Allergic reaction Patient Disposition: Home, Self-Care Instructions: General Allergic Reaction (ED) Additional Instructions: Follow up with your primary care provider. Return to the emergency department immediately if your symptoms worsen or if you develop any dizziness, shortness of breath, difficulty breathing, chest pain, blurry vision, loss of vision, nausea, vomiting, abdominal pain, fever, chills, back pain, or any other complaints. Prescriptions: New prednisone 20 mg tablet 20 mg PO DAILY 7 Days Qty: 7 0RF No Action cholecalciferol (vitamin D3) 25 mcg (1,000 unit) tablet 25 mcg PO DAILY Qty: 90 0RF ibuprofen 600 mg tablet 600 mg PO Q8H PRN (Reason: pain) Qty: 20 0RF Referrals: Dio Oden MD [Primary Care Provider] - Stand Alone Forms: Work/School Release Interventions: ED Discharge Assessment Last Done: 03/13/22 11:27 Discharge Date/Time: 03/13/22 11:28 Print Language: [place]
[2022-03-13 09:54] VITALS: BP 136/94; PULSE 81; RESP 16; TEMP 36.6; O2SAT 99; BMI 29.0
[2022-03-13] MEDS: diphenhydrAMINE HCL 50 MG/ML VIAL 25 MG IVPUSH (10:13)
[2022-03-13 10:16] LABS: MANUAL DIFF FLAG NO
[2022-03-13 10:25] LABS: Basophils Percent Auto 0.3 % (0-2); Eosinophils Absolute Auto 0.1 X10*3/uL (0.0-0.4); Eosinophils Percent Auto 1.7 % (0-4); Hematocrit 42.7 % (42.0-52.0); Imm Gran Abs Auto 0.02 X10*3/uL (0.00-0.03); Imm Gran Pct Auto 0.3 % (0.0-0.4); Lymphocytes Absolute Auto 1.3 X10*3/uL (1.2-4.9); Lymphocytes Percent Auto 21.7 % (20-40); Mean Corpuscular HGB Conc 32.8 g/dl (31.0-36.0); Mean Corpuscular Volume 91.4 fL (80.0-98.0); Mean Platelet Volume 9.6 fL (9.4-12.4); Monocytes Absolute Auto 0.6 X10*3/uL (0.1-1.2); Monocytes Percent Auto 9.3 % (2-11); Neutrophils Percent Auto 66.7 % (45-73); Platelet Count 254 X10*3/uL (160-400); Red Blood Count 4.67 X10*6/uL (4.60-5.80); White Blood Count 6.1 X10*3/uL (4.8-10.8)
[2022-03-13 10:35] LABS: Alanine Aminotransferase 23 U/L (0-40); Albumin Level 4.3 g/dL (3.5-5.0); Alkaline Phosphatase 46 U/L (39-117); Anion Gap 10 (12-20); Aspartate Amino Transferase 18 U/L (5-37); Blood Urea Nitrogen 14 mg/dL (9-16); C Reactive Protein 0.13 mg/dL (< or = 0.50); Carbon Dioxide 28 mmol/L (22-29); Chloride 103 mmol/L (96-108); Creatinine Clr Calc Pharmacy 97.4; Estimated Glomerular Filt Rate > 60; Glucose Random 85 mg/dL (60-115); Potassium 4.1 mmol/L (3.3-5.1); Sodium 137 mmol/L (135-145); Total Protein 7.4 g/dL (6.5-8.0)
[2022-03-13 11:40] LABS: Erythrocyte Sedimentation Rate 5 MM/HR (0-15)
[2022-03-13 12:36] LABS: Bilirubin Total 0.6 mg/dL (0.0-1.0)
== END 2022-03-13 11:28 | disposition home or self-care (01) ==
PROVIDERS: Physician Assistant Medical; Emergency Provider Emergency Medicine Emergency Medical Services; PCP Internal Medicine
DX: T78.40XA Allergy, unspecified, initial encounter (principal); R21 Rash and other nonspecific skin eruption; X58.XXXA Exposure to other specified factors, initial encounter
CPT/HCPCS: 36415; 80053; 85025; 85652; 86140; 96374; 99284; J1200

== ENCOUNTER 2022-06-09 11:23 | Emergency (ER) | payer OTHER, SELFPAY ==
--- NOTE | ~2022-06-09 | CT_ITS ---
EXAMINATION: CT SOFT TISSUE NECK WITH CONTRAST CLINICAL INFORMATION: Left tonsillar enlargement. Further evaluate. COMPARISON: None available. TECHNIQUE: Following intravenous administration of 100 mL of Omnipaque 350 contrast, helical imaging was performed in the axial plane with generation of coronal and sagittal reformatted images. This CT examination was performed using dose optimization techniques as appropriate, variously including the following: *Automated exposure control *Adjustment of mA and/or kV according to patient size (this includes techniques or standardized protocols for targeted exams where dose is matched to indication/reason for exam; i.e. extremities or head) *Use of iterative reconstruction technique DLP: 493 mGy-cm. FINDINGS: There is symmetric prominence of the palatine tonsils with narrowing of the oropharyngeal airway. No peritonsillar collection is seen. The oral cavity appears normal. The submandibular and parotid glands are normal in appearance bilaterally. Mild leftward curvature of the cervical spine noted. No pathologically enlarged cervical lymph nodes are visible. The laryngeal structures are unremarkable. The thyroid gland is normal. The carotid sheath vasculature opacifies normally. The imaged mediastinum appears normal. The visualized axillae are normal. The lungs are clear. There is a mild reversal of the normal cervical lordosis. No acute osseous abnormality is seen. No periapical lucencies seen in the dentition. The paranasal sinuses and mastoid air cells are well aerated. The imaged portions of the brain demonstrate no acute abnormality. CT/CT soft tissue neck w IV con IMPRESSION: No peritonsillar collection or mass identified. Fairly symmetric prominence of the palatine tonsils bilaterally with narrowing of the oropharyngeal airway. No cervical adenopathy or acute process otherwise.
[2022-06-09 11:30] VITALS: BP 134/84; PULSE 79; RESP 18; TEMP 36.6; O2SAT 97; BMI 26.6
--- NOTE | 2022-06-09 11:34 | ED.GENADULT ---
HPI - General Adult General Chief complaint: Upper Respiratory Symptoms <CHRISTY Jones - Last Filed: 06/09/22 11:36> Stated complaint: Sore throat <CHRISTY Jones - Last Filed: 06/09/22 11:36> Time Seen by Provider: 06/09/22 11:49 <CHRISTY Jones - Last Filed: 06/09/22 11:36> Source: patient <Debi Boo NP - Last Filed: 06/09/22 16:08> Mode of arrival: ambulatory <Debi Boo NP - Last Filed: 06/09/22 16:08> Limitations: no limitations <Debi Boo NP - Last Filed: 06/09/22 16:08> History of Present Illness HPI narrative: 47-year-old male presents with sore throat and difficulty swallowing that started at 03:00. He tells me it is difficult to swallow and he feels like he can not breathe. Also reporting some associated neck pain. This is never happened to him before. COVID test negative at home. Last night had nasal congestion, headache and cough. No recent travel or sick contact. <Debi Boo NP - Last Filed: 06/09/22 16:08> Related Data Home medications: Previous Rx's Medication Instructions Recorded cholecalciferol (vitamin D3) 25 25 mcg PO DAILY #90 tabs 03/07/22 mcg (1,000 unit) tablet ibuprofen 600 mg tablet 600 mg PO Q8H PRN pain #20 tabs 03/07/22 prednisone 20 mg tablet 20 mg PO DAILY 7 days #7 tabs 03/13/22 amoxicillin 500 mg capsule 500 mg PO BID #20 caps 06/09/22 <CHRISTY Jones - Last Filed: 06/09/22 11:36> Allergies/adverse reactions: Allergies Allergy/AdvReac Type Severity Reaction Status Date / Time No Known Allergies Allergy Verified 03/07/22 15:23 <CHRISTY Jones - Last Filed: 06/09/22 11:36> Review of Systems Review of Systems: Yes all other systems are reviewed and are negative <Debi Boo NP - Last Filed: 06/09/22 16:08> Constitutional: Constitutional: Reports no additional constitutional complaints, Denies body ache(s), Denies chills, Denies fever(s), Reports headache(s) and Denies weakness <Debi Boo [employer]OD[employer] - Last Filed: 06/09/22 16:08> Eyes: Eyes: Reports no additional eye complaints and Denies change in vision <Debi Boo [employer]ODUCER - Last Filed: 06/09/22 16:08> ENT: Reports system reviewed and no additional complaints, except as documented, Denies dizziness, Reports headache(s), Reports nasal congestion, Denies nasal discharge, Denies neck pain and Reports sore throat <Debi Boo [employer]ODUCER - Last Filed: 06/09/22 16:08> Cardiovascular: Cardiovascular: Reports no additional cardiovascular complaints, Denies chest pain, Denies leg edema and Denies dyspnea <Debi Boo [employer]ODUCER - Last Filed: 06/09/22 16:08> Respiratory: Respiratory: Reports no additional respiratory complaints, Reports cough and Denies dyspnea <Debi Boo [employer]ODUCER - Last Filed: 06/09/22 16:08> Gastrointestinal: Gastrointestinal: Reports no additional gastrointestinal complaints, Denies abdominal pain, Denies diarrhea, Denies nausea and Denies vomiting <Debi Boo [employer]ODUCER - Last Filed: 06/09/22 16:08> Genitourinary: Genitourinary: Denies urinary incontinence <Debi Boo [employer]ODUCER - Last Filed: 06/09/22 16:08> Musculoskeletal: Musculoskeletal: Reports no additional musculoskeletal complaints, Denies back pain, Denies arthralgias, Denies joint swelling, Denies neck pain, Denies numbness and Denies tingling <Debi Boo [employer]ODUCER - Last Filed: 06/09/22 16:08> Integumentary/Breasts: Skin/Breast: Reports system reviewed and no additional complaints, except as docu and Denies rash <Debi Boo [employer]ODUCER - Last Filed: 06/09/22 16:08> Neurologic: Reports system reviewed and no additional complaints, except as documented, Denies dizziness, Reports headache(s), Denies numbness, Denies tingling and Denies weakness <Debi Boo NP - Last Filed: 06/09/22 16:08> [facility] Past Medical History Attestation statement: The following information was validated with the patient. <Debi Boo NP - Last Filed: 06/09/22 16:08> Source: old records reviewed and nursing notes reviewed <Debi Boo NP - Last Filed: 06/09/22 16:08> Medical History: Medical History Diverticulosis Low grade glioma of brain Overweight (BMI 25.0-29.9) Potential exposure to STD <CHRISTY Jones - Last Filed: 06/09/22 11:36> Surgical History: Surgical History H/O circumcision Hx of appendectomy Hx of colonoscopy <CHRISTY Jones - Last Filed: 06/09/22 11:36> Family History Family History: Family History Mother No problems noted. Father No problems noted. 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 Cognitive needs: No Hearing needs: No Vision needs: No <CHRISTY Jones - Last Filed: 06/09/22 11:36> Physical Exam ED Vital Signs: Vital Signs - 24 hr 06/09/22 11:30 Temperature 98 F Pulse Rate 79 Respiratory Rate 18 Blood Pressure 134/84 Pulse Oximetry 97 Oxygen Delivery Method Room Air BMI result Body Mass Index 26.6 <CHRISTY Jones - Last Filed: 06/09/22 11:36> Vital Signs - 24 hr 06/09/22 11:30 Temperature 98 F Pulse Rate 79 Respiratory Rate 18 Blood Pressure 134/84 Pulse Oximetry 97 Oxygen Delivery Method Room Air BMI result Body Mass Index 26.6 <Debi Boo NP - Last Filed: 06/09/22 16:08> Const General: cooperative, healthy appearing, comfortable and no acute distress <Debi Boo [employer]UCER - Last Filed: 06/09/22 16:08> Orientation/consciousness: patient oriented x3 <Debi Boo [employer]UCER - Last Filed: 06/09/22 16:08> Limitations: no limitations <Debi Boo [employer]ODUCER - Last Filed: 06/09/22 16:08> HENMT Head: Yes normal to inspection <Debi Boo [employer]UCER - Last Filed: 06/09/22 16:08> Ears: hearing grossly normal bilaterally and TM's normal bilaterally <Debi Boo NP - Last Filed: 06/09/22 16:08> General nose exam: Normal external nose present <Debi Boo [employer]ER - Last Filed: 06/09/22 16:08> Face and sinus: Yes normal facial exam <Debi Boo NP - Last Filed: 06/09/22 16:08> Mouth: Normal oral and palatal mucosa present <Debi Boo [employer]ER - Last Filed: 06/09/22 16:08> Teeth and gingiva: dentition normal <Debi Boo NP - Last Filed: 06/09/22 16:08> Throat: Yes posterior oropharynx normal, Yes uvula midline and Yes other (Bilateral tonsillar swelling L>R) <Debi Boo [employer]ODUCER - Last Filed: 06/09/22 16:08> Eyes General: appearance normal, both eyes and all related structures <Debi Boo [employer]ODUCER - Last Filed: 06/09/22 16:08> Pupils: Equal, round and reactive pupils present <Debi Boo [employer]ODUCER - Last Filed: 06/09/22 16:08> Neck Neck: Yes normal visual inspection, Yes full ROM, Yes no lymphadenopathy and Yes no meningeal signs <Debi Boo [employer]ODUCER - Last Filed: 06/09/22 16:08> Chest Chest palpation & inspection: normal inspection of the chest <Debi Boo [employer]ODUCER - Last Filed: 06/09/22 16:08> Resp Effort & Inspection: normal respiratory effort <Debi Boo [employer]ODUCER - Last Filed: 06/09/22 16:08> Auscultation: clear to auscultation bilaterally <Debi Boo [employer]ODUCER - Last Filed: 06/09/22 16:08> Cardio Rate: regular rate <Debi Boo, [employer]ODUCER - Last Filed: 06/09/22 16:08> Rhythm: regular rhythm <Debi Boo [employer] PRODUCER - Last Filed: 06/09/22 16:08> Peripheral pulses: Peripheral pulses 2+ throughout <Debi Boo [employer] PRODUCER - Last Filed: 06/09/22 16:08> GI Inspection: Yes normal to inspection <Debi Boo [employer]ODUCER - Last Filed: 06/09/22 16:08> Palpation (GI): Soft to palpation and nontender <Debi Boo [employer]ODUCER - Last Filed: 06/09/22 16:08> General: Yes no CVA tenderness <Debi Boo D[employer] PRODUCER - Last Filed: 06/09/22 16:08> Back/Spine/Pelvis Back: no CVA tenderness <Debi Boo, [employer]ODUCER - Last Filed: 06/09/22 16:08> Thoracic/Lumbar Spine: thoracic and lumbar spine normal to inspection <Debi Boo [employer]IA [employer]ODUCER - Last Filed: 06/09/22 16:08> Skin General skin exam: no rashes or lesions noted <Debi Boo [employer]IA [employer]ODUCER - Last Filed: 06/09/22 16:08> Neuro General: patient oriented x3 and no meningeal signs <Debi Boo, [employer]ODUCER - Last Filed: 06/09/22 16:08> Cranial nerves: Yes Equal, round and reactive pupils present <Debi Boo [employer]IA [employer]ODUCER - Last Filed: 06/09/22 16:08> Cognition (Neuro): normal cognition <Debi Boo NP - Last Filed: 06/09/22 16:08> Gait exam (Neuro): Normal gait present <Debi Boo NP - Last Filed: 06/09/22 16:08> Motor exam (neuro): 5/5 motor strength present throughout <Debi Boo NP - Last Filed: 06/09/22 16:08> Sensory Exam: Normal double simultaneous stimulation for sensation <Debi Boo NP - Last Filed: 06/09/22 16:08> Extrem General: Yes normal to inspection, Yes no pedal edema and Yes no calf tenderness <Debi Boo NP - Last Filed: 06/09/22 16:08> Course Course Course Narrative: This is an RME: Additional HPI, ROS, PE not included below will be deferred to primary provider. 47-year-old male presents with sore throat and difficulty swallowing that started at 03:00. He tells me it is difficult to swallow and he feels like he can not breathe. Also reporting some associated neck pain. This is never happened to him before. COVID test negative at home. On exam bilateral tonsils erythematous, left-sided tonsil much more enlarged than the right. Question abscess to left tonsil. Plan viral testing, basic labs. Will order CT soft tissue neck with contrast to rule out peritonsillar abscess on the left side <CHRISTY Jones - Last Filed: 06/09/22 11:36> Reevaluation(s) Reevaluation #1: Strep screen is positive. CT shows no peritonsillar abscess. Patient has no airway involvement is tolerating secretions with no difficulty. Plan for discharge home with course of antibiotics. Reviewed worrisome signs and symptoms of when to return to the emergency room. Comfortable plan for discharge home. <Debi Boo NP - Last Filed: 06/09/22 16:08> Medications Administered Discontinued Medications Generic Name Dose Route Start Last Admin Trade Name Freq PRN Reason Stop Dose Admin Iohexol 100 ml 06/09/22 14:25 06/09/22 14:26 Iohexol 350 Mg/Ml 100 Ml Infus..Btl IV 06/09/22 14:26 60 ml ONCE ONE Administration <CHRISTY Jones - Last Filed: 06/09/22 11:36> Medications Administered Discontinued Medications Generic Name Dose Route Start Last Admin Trade Name Chris PRN Reason Stop Dose Admin Iohexol 100 ml 06/09/22 14:25 06/09/22 14:26 Iohexol 350 Mg/Ml 100 Ml Infus..Btl IV 06/09/22 14:26 60 ml ONCE ONE Administration <Debi Boo NP - Last Filed: 06/09/22 16:08> Medical Decision Making Medical Decision Making [facility] Narrative: 47 yo male with sore throat, nasal congestion,cough, headache beginning last evening with increasing sore throat today and felt diff swallowing. On exam bilateral tonsillar erythema/swelling L>R. Will obtain labs, covid/rsv/flu testing, strep testing. 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 <Debi Boo NP - Last Filed: 06/09/22 16:08> Result Diagrams: 06/09/22 11:44 06/09/22 11:44 <CHRISTY Jones - Last Filed: 06/09/22 11:36> Labs: Lab Results 06/09/22 06/09/22 06/09/22 Range/Units 11:44 11:44 11:44 WBC (4.8-10.8) X10*3/uL RBC (4.60-5.80) X10*6/uL Hgb (14.0-18.0) g/dl Hct (42.0-52.0) % MCV (80.0-98.0) fL MCH (27.0-33.0) pg MCHC (31.0-36.0) g/dl RDW (11.0-16.0) % Plt Count (160-400) X10*3/uL MPV (9.4-12.4) fL Immature Gran % (Auto) (0.0-0.4) % Neut % (Auto) (45-73) % Lymph % (Auto) (20-40) % Lea % (Auto) (2-11) % Eos % (Auto) (0-4) % Baso % (Auto) (0-2) % Lymph # (Auto) (1.2-4.9) X10*3/uL Lea # (Auto) (0.1-1.2) X10*3/uL Eos # (Auto) (0.0-0.4) X10*3/uL Baso # (Auto) (0.0-0.2) X10*3/uL Abs Immat Gran (auto) (0.00-0.03) X10*3/uL Absolute Neuts (auto) (2.0-8.3) x10*3/uL Absolute Nucleated RBC (0.0-0.012) X10*3/uL Nucleated RBC % (auto) (0.0-0.2) /100WBC Sodium (135-145) mmol/L Potassium (3.3-5.1) mmol/L Chloride (96-108) mmol/L Carbon Dioxide (22-29) mmol/L Anion Gap (12-20) BUN (9-16) mg/dL Creatinine (0.5-1.4) mg/dL Estim Creat Clear Calc Estimated GFR Random Glucose (60-115) mg/dL Calcium (8.4-10.2) mg/dL Total Bilirubin (0.0-1.0) mg/dL AST (5-37) U/L ALT (0-40) U/L Alkaline Phosphatase (39-117) U/L Total Protein (6.5-8.0) g/dL Albumin (3.5-5.0) g/dL COVID-19 (LIMA) Negative (Negative) COVID-19 Clin Com See Note Influenza Type A (KATIE) Negative (Negative) Influenza Type B (KATIE) Negative (Negative) Influenza A & B Note See Note S. pyogenes GrpA KATIE Positive A (Negative) 06/09/22 06/09/22 Range/Units 11:44 11:44 WBC 10.5 (4.8-10.8) X10*3/uL RBC 4.47 L (4.60-5.80) X10*6/uL Hgb 13.3 L (14.0-18.0) g/dl Hct 41.0 L (42.0-52.0) % MCV 91.7 (80.0-98.0) fL MCH 29.8 (27.0-33.0) pg MCHC 32.4 (31.0-36.0) g/dl RDW 13.3 (11.0-16.0) % Plt Count 229 (160-400) X10*3/uL MPV 9.9 (9.4-12.4) fL Immature Gran % (Auto) 0.4 (0.0-0.4) % Neut % (Auto) 70.6 (45-73) % Lymph % (Auto) 17.6 L (20-40) % Lea % (Auto) 10.6 (2-11) % Eos % (Auto) 0.6 (0-4) % Baso % (Auto) 0.2 (0-2) % Lymph # (Auto) 1.8 (1.2-4.9) X10*3/uL Lea # (Auto) 1.1 (0.1-1.2) X10*3/uL Eos # (Auto) 0.1 (0.0-0.4) X10*3/uL Baso # (Auto) 0.0 (0.0-0.2) X10*3/uL Abs Immat Gran (auto) 0.04 H (0.00-0.03) X10*3/uL Absolute Neuts (auto) 7.4 (2.0-8.3) x10*3/uL Absolute Nucleated RBC 0.000 (0.0-0.012) X10*3/uL Nucleated RBC % (auto) 0.0 (0.0-0.2) /100WBC Sodium 140 (135-145) mmol/L Potassium 4.4 (3.3-5.1) mmol/L Chloride 103 (96-108) mmol/L Carbon Dioxide 31 H (22-29) mmol/L Anion Gap 10 L (12-20) BUN 14 (9-16) mg/dL Creatinine 1.02 (0.5-1.4) mg/dL Estim Creat Clear Calc 82.8 Estimated GFR > 60 Random Glucose 89 (60-115) mg/dL Calcium 9.0 (8.4-10.2) mg/dL Total Bilirubin 0.4 (0.0-1.0) mg/dL AST 17 (5-37) U/L ALT 19 (0-40) U/L Alkaline Phosphatase 53 (39-117) U/L Total Protein 7.3 (6.5-8.0) g/dL Albumin 4.1 (3.5-5.0) g/dL COVID-19 (LIMA) (Negative) COVID-19 Clin Com Influenza Type A (KATIE) (Negative) Influenza Type B (KATIE) (Negative) Influenza A & B Note S. pyogenes GrpA KATIE (Negative) <CHRISTY Jones - Last Filed: 06/09/22 11:36> Lab Results 06/09/22 06/09/22 06/09/22 Range/Units 11:44 11:44 11:44 WBC (4.8-10.8) X10*3/uL RBC (4.60-5.80) X10*6/uL Hgb (14.0-18.0) g/dl Hct (42.0-52.0) % MCV (80.0-98.0) fL MCH (27.0-33.0) pg MCHC (31.0-36.0) g/dl RDW (11.0-16.0) % Plt Count (160-400) X10*3/uL MPV (9.4-12.4) fL Immature Gran % (Auto) (0.0-0.4) % Neut % (Auto) (45-73) % Lymph % (Auto) (20-40) % Lea % (Auto) (2-11) % Eos % (Auto) (0-4) % Baso % (Auto) (0-2) % Lymph # (Auto) (1.2-4.9) X10*3/uL Lea # (Auto) (0.1-1.2) X10*3/uL Eos # (Auto) (0.0-0.4) X10*3/uL Baso # (Auto) (0.0-0.2) X10*3/uL Abs Immat Gran (auto) (0.00-0.03) X10*3/uL Absolute Neuts (auto) (2.0-8.3) x10*3/uL Absolute Nucleated RBC (0.0-0.012) X10*3/uL Nucleated RBC % (auto) (0.0-0.2) /100WBC Sodium (135-145) mmol/L Potassium (3.3-5.1) mmol/L Chloride (96-108) mmol/L Carbon Dioxide (22-29) mmol/L Anion Gap (12-20) BUN (9-16) mg/dL Creatinine (0.5-1.4) mg/dL Estim Creat Clear Calc Estimated GFR Random Glucose (60-115) mg/dL Calcium (8.4-10.2) mg/dL Total Bilirubin (0.0-1.0) mg/dL AST (5-37) U/L ALT (0-40) U/L Alkaline Phosphatase (39-117) U/L Total Protein (6.5-8.0) g/dL Albumin (3.5-5.0) g/dL COVID-19 (LIMA) Negative (Negative) COVID-19 Clin Com See Note Influenza Type A (KATIE) Negative (Negative) Influenza Type B (KATIE) Negative (Negative) Influenza A & B Note See Note S. pyogenes GrpA KATIE Positive A (Negative) 06/09/22 06/09/22 Range/Units 11:44 11:44 WBC 10.5 (4.8-10.8) X10*3/uL RBC 4.47 L (4.60-5.80) X10*6/uL Hgb 13.3 L (14.0-18.0) g/dl Hct 41.0 L (42.0-52.0) % MCV 91.7 (80.0-98.0) fL MCH 29.8 (27.0-33.0) pg MCHC 32.4 (31.0-36.0) g/dl RDW 13.3 (11.0-16.0) % Plt Count 229 (160-400) X10*3/uL MPV 9.9 (9.4-12.4) fL Immature Gran % (Auto) 0.4 (0.0-0.4) % Neut % (Auto) 70.6 (45-73) % Lymph % (Auto) 17.6 L (20-40) % Lea % (Auto) 10.6 (2-11) % Eos % (Auto) 0.6 (0-4) % Baso % (Auto) 0.2 (0-2) % Lymph # (Auto) 1.8 (1.2-4.9) X10*3/uL Lea # (Auto) 1.1 (0.1-1.2) X10*3/uL Eos # (Auto) 0.1 (0.0-0.4) X10*3/uL Baso # (Auto) 0.0 (0.0-0.2) X10*3/uL Abs Immat Gran (auto) 0.04 H (0.00-0.03) X10*3/uL Absolute Neuts (auto) 7.4 (2.0-8.3) x10*3/uL Absolute Nucleated RBC 0.000 (0.0-0.012) X10*3/uL Nucleated RBC % (auto) 0.0 (0.0-0.2) /100WBC Sodium 140 (135-145) mmol/L Potassium 4.4 (3.3-5.1) mmol/L Chloride 103 (96-108) mmol/L Carbon Dioxide 31 H (22-29) mmol/L Anion Gap 10 L (12-20) BUN 14 (9-16) mg/dL Creatinine 1.02 (0.5-1.4) mg/dL Estim Creat Clear Calc 82.8 Estimated GFR > 60 Random Glucose 89 (60-115) mg/dL Calcium 9.0 (8.4-10.2) mg/dL Total Bilirubin 0.4 (0.0-1.0) mg/dL AST 17 (5-37) U/L ALT 19 (0-40) U/L Alkaline Phosphatase 53 (39-117) U/L Total Protein 7.3 (6.5-8.0) g/dL Albumin 4.1 (3.5-5.0) g/dL COVID-19 (LIMA) (Negative) COVID-19 Clin Com Influenza Type A (KATIE) (Negative) Influenza Type B (KATIE) (Negative) Influenza A & B Note S. pyogenes GrpA KATIE (Negative) <Debi Boo NP - Last Filed: 06/09/22 16:08> Independent Interpretation I performed an independent interpretation of an: CT Scan <Debi Boo NP - Last Filed: 06/09/22 16:08> Interpretation: I independently reviewed the CT scan and agree with radiologist's report <Debi Boo NP - Last Filed: 06/09/22 16:08> Radiology Impression Discussion of test interpretation with radiology: I have reviewed the radiologist's reading. <Debi Boo NP - Last Filed: 06/09/22 16:08> Radiologist Impression: [place] [id number] CT Scan Report Signed Patient: Jovanni Bernard MR#: [id number] : 1975 Acct:[id number] Age/Sex: 47 / M ADM Date: 06/09/22 Loc: HO.ED Attending Dr: Ordering Physician: Jud Saucedo Date of Service: 06/09/22 Procedure(s): CT soft tissue neck w IV con Accession Number(s): [id number] cc: Jud Saucedo~ EXAMINATION: CT SOFT TISSUE NECK WITH CONTRAST CLINICAL INFORMATION: Left tonsillar enlargement. Further evaluate.? COMPARISON: None available.? ? TECHNIQUE: Following intravenous administration of 100 mL of Omnipaque 350 contrast, helical imaging was performed in the axial plane with generation of coronal and sagittal reformatted images. This CT examination was performed using dose optimization techniques as appropriate, variously including the following: *Automated exposure control *Adjustment of mA and/or kV according to patient size (this includes techniques or standardized protocols for targeted exams where dose is matched to indication/reason for exam; i.e. extremities or head) *Use of iterative reconstruction technique DLP: 493 mGy-cm. FINDINGS: There is symmetric prominence of the palatine tonsils with narrowing of the oropharyngeal airway. No peritonsillar collection is seen. The oral cavity appears normal. The submandibular and parotid glands are normal in appearance bilaterally. Mild leftward curvature of the cervical spine noted. No pathologically enlarged cervical lymph nodes are visible. The laryngeal structures are unremarkable. The thyroid gland is normal. The carotid sheath vasculature opacifies normally. The imaged mediastinum appears normal. The visualized axillae are normal. The lungs are clear. There is a mild reversal of the normal cervical lordosis. No acute osseous abnormality is seen. No periapical lucencies seen in the dentition. The paranasal sinuses and mastoid air cells are well aerated. The imaged portions of the brain demonstrate no acute abnormality. CT/CT soft tissue neck w IV con IMPRESSION: No peritonsillar collection or mass identified. Fairly symmetric prominence of the palatine tonsils bilaterally with narrowing of the oropharyngeal airway. No cervical adenopathy or acute process otherwise. <Debi Boo NP - Last Filed: 06/09/22 16:08> Discharge Plan Discharge Clinical Impression: Pharyngitis <CHRISTY Jones - Last Filed: 06/09/22 11:36> Patient Disposition: Home, Self-Care <CHRISTY Jones - Last Filed: 06/09/22 11:36> Instructions: Pharyngitis (ED) <CHRISTY Jones - Last Filed: 06/09/22 11:36> Additional Instructions: Testing for COVID and flu are negative. your strep test is positive Avoid sharing utensils and cups New toothbrush after 24 hours Alternate Motrin or Tylenol for any pain or fever <CHRISTY Jones - Last Filed: 06/09/22 11:36> Prescriptions: New amoxicillin 500 mg capsule 500 mg PO BID Qty: 20 0RF No Action prednisone 20 mg tablet 20 mg PO DAILY 7 Days Qty: 7 0RF cholecalciferol (vitamin D3) 25 mcg (1,000 unit) tablet 25 mcg PO DAILY Qty: 90 0RF ibuprofen 600 mg tablet 600 mg PO Q8H PRN (Reason: pain) Qty: 20 0RF <CHRISTY Jones Last Filed: 06/09/22 11:36> Referrals: Dio Oden MD [Primary Care Provider] - <CHRISTY Jones - Last Filed: 06/09/22 11:36> Stand Alone Forms: Work/School Release <CHRISTY Jones - Last Filed: 06/09/22 11:36>
[2022-06-09 11:50] LABS: MANUAL DIFF FLAG NO
[2022-06-09 11:52] LABS: Basophils Percent Auto 0.2 % (0-2); Eosinophils Absolute Auto 0.1 X10*3/uL (0.0-0.4); Eosinophils Percent Auto 0.6 % (0-4); Hemoglobin 13.3 g/dl (14.0-18.0); Imm Gran Abs Auto 0.04 X10*3/uL (0.00-0.03); Imm Gran Pct Auto 0.4 % (0.0-0.4); Lymphocytes Absolute Auto 1.8 X10*3/uL (1.2-4.9); Lymphocytes Percent Auto 17.6 % (20-40); Mean Corpuscular HGB Conc 32.4 g/dl (31.0-36.0); Mean Corpuscular Hemoglobin 29.8 pg (27.0-33.0); Mean Corpuscular Volume 91.7 fL (80.0-98.0); Mean Platelet Volume 9.9 fL (9.4-12.4); Monocytes Absolute Auto 1.1 X10*3/uL (0.1-1.2); Monocytes Percent Auto 10.6 % (2-11); Neutrophils Absolute Auto 7.4 x10*3/uL (2.0-8.3); Neutrophils Percent Auto 70.6 % (45-73); Platelet Count 229 X10*3/uL (160-400); Red Blood Count 4.47 X10*6/uL (4.60-5.80); Red Cell Distribution Width 13.3 % (11.0-16.0); White Blood Count 10.5 X10*3/uL (4.8-10.8)
[2022-06-09 12:08] LABS: IDNOW Serial# 6674DD1D; Strep A Nucleic Acid Positive (Negative)
[2022-06-09 12:09] LABS: COVID-19 Test Negative (Negative); IDNOW Serial# 55D5AD1C; IDNOW Serial# 6674DD1D; Influenza A Negative (Negative); Influenza B2 Negative (Negative)
[2022-06-09 12:14] LABS: Alanine Aminotransferase 19 U/L (0-40); Albumin Level 4.1 g/dL (3.5-5.0); Alkaline Phosphatase 53 U/L (39-117); Anion Gap 10 (12-20); Aspartate Amino Transferase 17 U/L (5-37); Bilirubin Total 0.4 mg/dL (0.0-1.0); Blood Urea Nitrogen 14 mg/dL (9-16); Carbon Dioxide 31 mmol/L (22-29); Chloride 103 mmol/L (96-108); Creatinine Clr Calc Pharmacy 82.8; Estimated Glomerular Filt Rate > 60; Glucose Random 89 mg/dL (60-115); Potassium 4.4 mmol/L (3.3-5.1); Sodium 140 mmol/L (135-145); Total Protein 7.3 g/dL (6.5-8.0)
[2022-06-09] MEDS: iohexoL 350 MG/ML 100 ML INFUS..BTL IV (14:26)
[2022-06-09 16:00] VITALS: BP 130/86; PULSE 73; RESP 16; TEMP 36.6; O2SAT 98
== END 2022-06-09 16:27 | disposition home or self-care (01) ==
PROVIDERS: Physician Assistant; Emergency Provider Emergency Medicine; PCP Internal Medicine
DX: J02.9 Acute pharyngitis, unspecified (principal); M54.2 Cervicalgia; J35.1 Hypertrophy of tonsils; Z20.822 Contact with and (suspected) exposure to COVID-19
CPT/HCPCS: 36415; 70491; 80053; 85025; 87502; 87635; 87651; 99283; 99284; Q9967

== ENCOUNTER 2022-10-31 07:46 | Outpatient (AMB) | payer OTHER, SELFPAY ==
[2022-10-31 07:58] VITALS: BP 134/84; PULSE 67; BMI 26.0
--- NOTE | 2022-10-31 07:58 | A.OFFVIS_ITS ---
Intake Vital Signs 10/31/22 07:58 Height 5 ft 7 in Weight 166 lb 3.657 oz BMI 26.0 BP 134/84 Blood Pressure Location Lt brachial Position Sitting Pulse 67 Intake Visit Reasons: 1 yr follow up Intake Note: Jovanni presents in office as a est.patient for a 1yr f/u for Diverticulosis PT CC: pt reports having no concerns pt denies any other GI Issues Information Systems Specialist Required: No Accompanied by: Self / Same As Patient Allergies No Known Allergies Allergy (Verified 10/31/22 07:59) HPI 1 yr follow up HPI Details LAST VISIT: Diverticulosis Discussed with patient diet that is high in fiber. Literature on how to pick high-fiber foods given to patient Status post colonoscopy Patient denies any ill effects from the prep, anesthesia or procedure itself. No polyps found. Diverticulosis of the entire colon. High-fiber diet discussed with patient. Patient will return in 1 year so we can discuss going for colorectal screening again. Patient is agreeable to this plan and verbalizes understanding of instructions. He was given the opportunity to ask questions and all questions answered. ? Thank you for allowing me to participate in his care Plan Medications New methylcellulose (laxative) (Citrucel) take it with full glass of water 500 mg PO DAILY 90 tabs 4RF K59.00 TODAY'S VISIT Patient is here today for follow-up and to discuss going for colonoscopy. Patient denies any GI concerning symptoms. Reports to be doing well. Patient colonoscopy last year and had suboptimal prep and recommendation was made for 1 year colonoscopy screening. Patient denies melena, hematochezia, unintentional weight loss or ribbon like stools. Patient denies any dyspepsia, dysphagia or odynophagia. States that he is moving his bowels well. A little bit confused about not eating anything solid day before the procedure. Patient denies any cardiac or respiratory symptoms. Patient denies any issues with anesthesia in the past. No history of sleep apnea. Not on any anticoagulation medication. [facility] Medical History Diverticulosis Low grade glioma of brain Overweight (BMI 25.0-29.9) Potential exposure to STD Vitamin D deficiency Surgical History H/O circumcision Hx of appendectomy Hx of colonoscopy Family History Mother No problems noted. Father No problems noted. Social History Housing: Apartment Alcohol intake: never Patient Tobacco Use Status: Never used Tobacco e-Cigarette/Vaping Use: Never Used Second Hand Smoke Exposure: Yes service: No Current occupational status: employed Current occupation: [employer] Cognitive needs: No Hearing needs: No Vision needs: No Review of Systems Const Denies weight gain and Denies weight loss ENT Reports no additional complaints, Denies dysphagia and Denies odynophagia Card Reports no additional complaints Resp Reports no additional complaints GI Denies abdominal pain, Denies belching, Denies melena, Denies bloating, Denies change in bowel habits, Denies dysphagia, Denies excessive flatus, Denies dyspepsia, Denies heartburn, Denies diarrhea, Denies loose stools, Denies nausea, Denies odynophagia and Denies vomiting Reports no additional complaints Musc Reports no additional complaints Neuro Reports no additional complaints Psych Reports no additional complaints Endo Reports no additional complaints Physical Exam Vital Signs: Last Vital Signs Pulse 67 10/31/22 07:58 BP 134/84 10/31/22 07:58 BMI result Body Mass Index 26.0 Const General: healthy appearing, no acute distress and well developed Nutritional Appearance: well nourished Orientation/consciousness: patient oriented x3 HEENT Head: Yes normal to inspection, Yes normocephalic and Yes atraumatic Face and sinus: Yes normal facial exam Mouth: Normal oral and palatal mucosa present Throat: Yes posterior oropharynx normal, Yes tonsils normal and Yes uvula midline Eyes General: appearance normal, both eyes and all related structures Neck Neck: Yes normal visual inspection, Yes full ROM and Yes trachea midline Thyroid: Thyroid normal Resp Effort & Inspection: normal respiratory effort, able to speak in complete sentences, no tracheal deviation and symmetric chest movement Auscultation: clear to auscultation bilaterally Cardio Rate: regular rate Heart sounds: S1 normal heart sound present and S2 normal heart sound present GI Inspection: Yes normal to inspection and No distended Palpation (GI): Soft to palpation, not firm, nontender and No hepatosplenomegaly present Auscultation: normal bowel sounds General: Yes no CVA tenderness Back/Spine/Pelvis Back: no CVA tenderness Skin General skin exam: elasticity normal, turgor normal and dry skin Neuro General: patient oriented x3 Psych Appearance: grossly normal Mental Status: mental status grossly normal Speech and movement: Normal speech and movement present Assessment & Plan Assessment & Plan (1) Colon cancer screening: Code(s): Z12.11 - Encounter for screening for malignant neoplasm of colon Plan: Discussed with patient in detail what clear liquid diet means. Patient was little confused and thought that he might be able to have soup with rice. Patient can have clear chicken broth only. Went over in detail about what clear liquid diet means and list of recommendation given to patient. What to expect before during and after the procedure discussed with patient. Patient denies any cardiac or respiratory symptoms. No history of sleep apnea. Not on any anticoagulation medication. Patient had no issues with anesthesia after colonoscopy last year. I will see patient after the procedure, sooner on as needed basis. Patient is agreeable to this plan and verbalizes understanding of instructions. He was given the opportunity to ask questions and all questions answered. Thank you for allowing me to participate in his care (2) Diverticulosis: Code(s): K57.90 - Diverticulosis of intestine, part unspecified, without perforation or abscess without bleeding Coding Level of Care Code Est Pt Level 3 (70332) Diagnoses Colon cancer screening Z12.11 Diverticulosis K57.90 Time Spent (min) 30 Comment 20 minutes spent with patient and additional 10 minutes spent reviewing her records
== END 2022-10-31 08:17 | disposition home or self-care (01) ==
PROVIDERS: PCP Internal Medicine; Visit Provider Nurse Practitioner Family
DX: K57.30 Diverticulosis of large intestine without perforation or abscess without bleeding (principal)
CPT/HCPCS: 99213

== ENCOUNTER → 2022-10-31 07:46 | Outpatient (BNVA) | payer OTHER, SELFPAY | PROVIDERS: PCP Internal Medicine; Visit Provider Nurse Practitioner Family | DX: K57.90 Diverticulosis of intestine, part unspecified, without perforation or abscess without bleeding (principal) | CPT/HCPCS: 99212 ==

== ENCOUNTER 2023-01-23 08:30 | Day surgery (SDC) | payer OTHER, SELFPAY ==
[2023-01-21 14:12] VITALS: BMI 26.0
--- NOTE | 2023-01-22 11:53 | HO.ANESPROP2 ---
Documented by User: Marilynn Duvall NP 01/22/23 11:54 HPI - Anesthesia Eval Consult details Narrative: 47yo M for Colonoscopy PMFSH Active Problems Active Problems: All Active Problems (Updated 08/21/22 @ 10:16 by Dio Oden MD) Vitamin D deficiency (Acute) Headache (Acute) Low vitamin D level (Acute) Impaired vision in both eyes (Acute) Memory impairment (Acute) Diverticulosis (Acute) Annual physical exam (Acute) Colon cancer screening (Acute) Overweight (BMI 25.0-29.9) (Acute) Potential exposure to STD (Acute) Low grade glioma of brain (Acute) Past Medical History Medical History Vitamin D deficiency Diverticulosis Overweight (BMI 25.0-29.9) Potential exposure to STD Low grade glioma of brain Family History Family History Mother No problems noted. Father No problems noted. 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 Cognitive needs: No Hearing needs: No Vision needs: No Meds Allergies Allergy/AdvReac Type Severity Reaction Status Date / Time No Known Allergies Allergy Verified 10/31/22 07:59 Exam Exam Date and Time: January 22, 2023 1153 Height,Weight and Vital Signs: Height 5 ft 7 in Weight 75.296 kg Assessment and Plan Assessment Anesthesia Assessment: Chart Reviewed Final Anesthetic Review History of Problems with Anesthesia: No Documented by User: Ledy Montenegro MD 01/23/23 11:30 PMFSH Past Medical History Medical History Vitamin D deficiency Diverticulosis Overweight (BMI 25.0-29.9) Potential exposure to STD Low grade glioma of brain Family History Family History Mother No problems noted. Father No problems noted. 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
[2023-01-23] MEDS: Lactated Ringers 1,000 ML 100 ML IVCONT (10:35)
--- NOTE | 2023-01-23 10:40 | MHC.SHP ---
Pre-Procedural Eval Section A Date of Service: 01/23/23 The patient is an INPATIENT: No The History & Physical has been completed within 30 days and I have reviewed it.: No Section B Chief Complaint: colon cancer screening Relevant Family History (Specify if Yes): No Relevant Social History: None Present Medications: see Short Stay Collaborative assessment Medical History: Significant History (Diverticulosis Low grade glioma of brain Overweight (BMI 25.0-29.9) Potential exposure to STD Vitamin D deficiency) History of Previous Operations: Relevant previous surgery/procedure and date(s) (H/O circumcision Hx of appendectomy Hx of colonoscopy) Allergies: Allergies Allergy/AdvReac Type Severity Reaction Status Date / Time No Known Allergies Allergy Verified 10/31/22 07:59 Review of Systems Sugical H&P ROS: Negative: Constitution, Cardiovascular, Respiratory and Gastrointestinal Exam Surgical H&P Exam: Normal: Heart, Normal: Lungs, Normal: Extremities and Normal: Abdomen Plan Diagnosis/Plan: Unchanged I have reviewed the history and physical and performed a pertinent physical examination on my patient. No changes have occurred unless specified. Time Spent With Patient Time: Total time managing care of this patient today ____ minutes.
[2023-01-23 10:41] VITALS: BP 131/87; PULSE 68; RESP 18; TEMP 37.4; O2SAT 99
--- NOTE | 2023-01-23 12:08 | W.PM.OPN ---
Operative Note Operative Note Date of Service: 01/23/23 Narrative: COLONOSCOPY TILL CECUM Pre-op diagnosis: colon cancer screening Post-op diagnosis:? diverticulosis, hemorrhoids Endoscopist:? Latoya Cullen MD Anesthesia:?MAC Consent: Indications for the procedure and potential complications of bleeding, perforation, reaction to medications and missed diagnosis were discussed with the patient and informed consent was obtained. Instrument: Olympus PCF H 190 L variable stiffness pediatric colonoscope Monitoring: Vital signs and clinical assessment, intermittent blood pressure monitoring, continuous EKG monitoring, Pulse oximetry and Carbon Dioxide monitoring were done throughout the procedure. Please see anesthesia flowsheet. Colon withdrawl time was 17 minutes. Procedure: The patient was placed in the left lateral decubitis position and pre-procedure medications were administered. After a digital rectal examination of the ano-rectum, the video colonoscope was inserted into the rectum and advanced through the colon to the cecum. The colonoscope was slowly withdrawn in a retrograde panoramic fashion and the colon mucosa was carefully examined including a retroflexed view of the rectum. Findings and interventions are described below. Procedure Difficulty: Without difficulty Findings: Terminal Ileum: Not evaluated Cecum: Normal Ascending Colon: Normal Transverse Colon: Normal Descending Colon: Normal Sigmoid Colon: Moderate diverticulosis Rectum: Normal Ano-rectum: Small internal hemorrhoids Colon preparation: Excellent Impression and Post Procedure Diagnosis: Colonoscopy Findings: No polyps were detected Moderate diverticulosis seen in the sigmoid colon Smal hemorrhoids on retroflexed exam. Plan: Patient has an appointment on 02/06/23 in the GI Clinic with Mile Roy FNP-BC. Repeat Colonoscopy in 10 years (earlier if pt develops abdominal pain, change in bowel habits or rectal bleeding). Above findings were reviewed with the patient and diverticulosis handouts was given in the discharge area
[2023-01-23 12:50] VITALS: BP 116/66; PULSE 66; RESP 18; TEMP 36.2; O2SAT 100
[2023-01-23 13:05] VITALS: BP 120/77; PULSE 74; RESP 16; O2SAT 100
[2023-01-23 13:20] VITALS: BP 122/80; PULSE 80; RESP 14; TEMP 36.2; O2SAT 100
== END 2023-01-23 13:43 | disposition home or self-care (01) ==
PROVIDERS: PCP Internal Medicine; Visit Provider Internal Medicine Gastroenterology
PROC: 0DJD8ZZ Inspection of Lower Intestinal Tract, Via Natural or Artificial Opening Endoscopic (ICD-10-PCS; CPT 45378; principal; 2023-01-23 10:50)
DX: Z12.11 Encounter for screening for malignant neoplasm of colon (principal); K57.30 Diverticulosis of large intestine without perforation or abscess without bleeding; K64.8 Other hemorrhoids; C71.9 Malignant neoplasm of brain, unspecified; E66.3 Overweight; Z68.26 Body mass index [BMI] 26.0-26.9, adult; E55.9 Vitamin D deficiency, unspecified; R41.3 Other amnesia; Z79.899 Other long term (current) drug therapy
CPT/HCPCS: 45378

== ENCOUNTER → 2023-01-23 08:30 | Outpatient (BNV) | payer OTHER, SELFPAY | PROVIDERS: PCP Internal Medicine; Visit Provider Internal Medicine Gastroenterology | DX: Z12.11 Encounter for screening for malignant neoplasm of colon (principal); K57.30 Diverticulosis of large intestine without perforation or abscess without bleeding; K64.8 Other hemorrhoids | CPT/HCPCS: 45378 ==

== ENCOUNTER 2023-02-06 07:27 | Outpatient (AMB) | payer OTHER, SELFPAY ==
[2023-02-06 08:07] VITALS: BP 156/83; PULSE 71; BMI 26.4
--- NOTE | 2023-02-06 08:07 | MHC.OFFVIS ---
Intake Vital Signs 02/06/23 08:07 Height 5 ft 7 in Weight 168 lb 6.931 oz BMI 26.4 BP 156/83 H Blood Pressure Location Lt brachial Position Sitting Pulse 71 Pulse Source Pulse Oximeter Intake Visit Reasons: s/p colon Subhash Intake Note: Pt presents to the office today for a s/p colonoscopy. Pt states he is feeling well and denies any GI concerns at this time. Allergies No Known Allergies Allergy (Verified 02/06/23 08:09) HPI s/p colon Subhash HPI Details LAST VISIT: Colon cancer screening Discussed with patient in detail what clear liquid diet means. Patient was little confused and thought that he might be able to have soup with rice. Patient can have clear chicken broth only. Went over in detail about what clear liquid diet means and list of recommendation given to patient. What to expect before during and after the procedure discussed with patient. Patient denies any cardiac or respiratory symptoms. No history of sleep apnea. Not on any anticoagulation medication. Patient had no issues with anesthesia after colonoscopy last year. I will see patient after the procedure, sooner on as needed basis. Patient is agreeable to this plan and verbalizes understanding of instructions. He was given the opportunity to ask questions and all questions answered. COLONOSCOPY: Findings: Terminal Ileum: Not evaluated Cecum: Normal Ascending Colon: Normal Transverse Colon: Normal Descending Colon: Normal Sigmoid Colon: Moderate diverticulosis Rectum: Normal Ano-rectum: Small internal hemorrhoids Colon preparation: Excellent Impression and Post Procedure Diagnosis: Colonoscopy Findings: No polyps were detected Moderate diverticulosis seen in the sigmoid colon Smal hemorrhoids on retroflexed exam. Plan: Repeat Colonoscopy in 10 years (earlier if pt develops abdominal pain, change in bowel habits or rectal bleeding). TODAY'S VISIT: Patient is here today for follow-up and to discuss colonoscopy results. Patient denies any ill effects from the prep, anesthesia or procedure itself. Colonoscopy results discussed with patient. No polyps found. Moderate diverticulosis to sigmoid colon and internal hemorrhoids without bleeding. Patient denies any GI concerning symptoms. Reports to be feeling well. No family history of colorectal cancer. Patient denies any melena, hematochezia, unintentional weight loss or ribbon like stools. [facility] Medical History Vitamin D deficiency Diverticulosis Overweight (BMI 25.0-29.9) Potential exposure to STD Low grade glioma of brain Surgical History Hx of colonoscopy H/O circumcision Hx of appendectomy Family History Mother No problems noted. Father No problems noted. Social History Housing: Apartment Alcohol intake: never Patient Tobacco Use Status: Never used Tobacco e-Cigarette/Vaping Use: Never Used Second Hand Smoke Exposure: Yes service: No Current occupational status: employed Current occupation: [employer] Cognitive needs: No Hearing needs: No Vision needs: No Review of Systems Const Denies weight gain and Denies weight loss ENT Reports no additional complaints, Denies dysphagia and Denies odynophagia Card Reports no additional complaints Resp Reports no additional complaints GI Denies abdominal pain, Denies belching, Denies melena, Denies bloating, Denies change in bowel habits, Denies dysphagia, Denies excessive flatus, Denies dyspepsia, Denies heartburn, Denies diarrhea, Denies loose stools, Denies nausea, Denies odynophagia and Denies vomiting Reports no additional complaints Musc Reports no additional complaints Neuro Reports no additional complaints Psych Reports no additional complaints Endo Reports no additional complaints Physical Exam Vital Signs: Last Vital Signs Pulse 71 02/06/23 08:07 BP 156/83 H 02/06/23 08:07 BMI result Body Mass Index 26.4 Const General: healthy appearing, no acute distress and well developed Nutritional Appearance: well nourished Orientation/consciousness: patient oriented x3 HEENT Head: Yes normal to inspection, Yes normocephalic and Yes atraumatic Face and sinus: Yes normal facial exam Mouth: Normal oral and palatal mucosa present Throat: Yes posterior oropharynx normal, Yes tonsils normal and Yes uvula midline Eyes General: appearance normal, both eyes and all related structures Neck Neck: Yes normal visual inspection, Yes full ROM and Yes trachea midline Thyroid: Thyroid normal Resp Effort & Inspection: normal respiratory effort, able to speak in complete sentences, no tracheal deviation and symmetric chest movement Auscultation: clear to auscultation bilaterally Cardio Rate: regular rate Heart sounds: S1 normal heart sound present and S2 normal heart sound present GI Inspection: Yes normal to inspection and No distended Palpation (GI): Soft to palpation, not firm, nontender and No hepatosplenomegaly present Auscultation: normal bowel sounds General: Yes no CVA tenderness Back/Spine/Pelvis Back: no CVA tenderness Skin General skin exam: elasticity normal, turgor normal and dry skin Neuro General: patient oriented x3 Psych Appearance: grossly normal Mental Status: mental status grossly normal Assessment & Plan Assessment & Plan (1) Diverticulosis: Code(s): K57.90 - Diverticulosis of intestine, part unspecified, without perforation or abscess without bleeding (2) Status post colonoscopy: Code(s): Z98.890 - Other specified postprocedural states Plan Colonoscopy results discussed with patient. High-fiber diet discussed with patient. Patient will repeat colonoscopy in 10 years, sooner if clinically necessary. Patient is agreeable to this plan and verbalizes understanding of instructions. He was given the opportunity to ask questions and all questions answered. Thank you for allowing me to participate in his care Coding Level of Care Code Est Pt Level 3 (46188) Diagnoses Diverticulosis K57.90 Status post colonoscopy Z98.890 Time Spent (min) 25 Comment 15 minutes spent with patient and additional 10 minutes spent reviewing his records
== END 2023-02-06 08:56 | disposition home or self-care (01) ==
PROVIDERS: PCP Internal Medicine; Visit Provider Nurse Practitioner Family
DX: K57.90 Diverticulosis of intestine, part unspecified, without perforation or abscess without bleeding (principal); Z98.890 Other specified postprocedural states
CPT/HCPCS: 99213

== ENCOUNTER → 2023-02-06 07:27 | Outpatient (BNVA) | payer OTHER, SELFPAY | PROVIDERS: PCP Internal Medicine; Visit Provider Nurse Practitioner Family | DX: K57.90 Diverticulosis of intestine, part unspecified, without perforation or abscess without bleeding (principal); Z98.890 Other specified postprocedural states | CPT/HCPCS: 99212 ==

== ENCOUNTER 2023-02-15 14:48 | Emergency (ER) | payer OTHER, SELFPAY ==
--- NOTE | ~2023-02-15 | XR_ITS ---
EXAMINATION: XR CHEST CLINICAL INFORMATION: Chest pain and dizziness COMPARISON: None available. TECHNIQUE: 2 views of the chest were obtained. FINDINGS: No significant abnormality is noted involving the heart, lungs, mediastinum, bony thorax or soft tissues. XR/XR chest 2V IMPRESSION: Unremarkable chest examination.
--- NOTE | ~2023-02-15 | CT_ITS ---
EXAMINATION: CT HEAD WITHOUT CONTRAST CLINICAL INFORMATION: Headache with nausea vomiting and dizziness. COMPARISON: CT head 10/06/2021. MRI brain 09/27/2020. MRI brain 09/14/2015. MRI brain 05/16/2016. TECHNIQUE: Contiguous axial imaging was performed from the skull base to vertex without intravenous administration of contrast. This CT examination was performed using dose optimization techniques as appropriate, variously including the following: *Automated exposure control *Adjustment of mA and/or kV according to patient size (this includes techniques or standardized protocols for targeted exams where dose is matched to indication/reason for exam; i.e. extremities or head) *Use of iterative reconstruction technique DLP: 565 mGy-cm FINDINGS: No intracranial hemorrhage or acute infarcts identified. Vague cortical and subcortical hypoattenuation is present in the posterior left temporal lobe extending to left temporal stem grossly unchanged compared with CT the head 10/06/2021. This region demonstrates no appreciable mass effect. The ventricles and sulci are normal in size and configuration. The orbits and globes are partially included in the image [id number] and are normal in appearance. No significant opacification of the visualized paranasal sinuses, mastoid air cells and middle ear cavities. CT/CT head/brain wo IV con IMPRESSION: *No acute intracranial abnormalities identified. *Unchanged cortical and subcortical hypoattenuation centered in the posterior left temporal lobe grossly stable compared with 10/06/2021. This finding has been evaluated on multiple comparison exams including prior MRI exams and has been previously characterized on the comparison imaging exams as a probable low-grade glioma.
[2023-02-15 15:13] VITALS: BP 155/81; PULSE 82; RESP 16; TEMP 36.6; O2SAT 97; BMI 27.4
--- NOTE | 2023-02-15 15:13 | ED_ITS ---
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 comes here for increased headache started yesterday at 23:00 with increased dizziness with vertiginous feeling and nausea vomiting no significant abdominal pain at this time patient headache is much improved patient did have anxiety and shakiness feeling no fever no chills no other family member sick no diarrhea patient had last CT head in 10/11 with no significant change Related Data Previous Rx's Medication Instructions Recorded cholecalciferol (vitamin D3) 25 25 mcg PO DAILY #90 tabs 03/07/22 mcg (1,000 unit) tablet ibuprofen 600 mg tablet 600 mg PO Q8H PRN pain #20 tabs 03/07/22 clotrimazole 1 % topical cream 1 appl topical BID 4 weeks #45 09/24/22 grams ztigdffzya-rbikmwfnagvda-anaxenbe 1 tab PO Q6H PRN haeadace #20 tabs 02/15/23 50 mg-325 mg-40 mg tablet meclizine 25 mg tablet 25 mg PO TID PRN dizziness #20 tabs 02/15/23 ondansetron 4 mg disintegrating 4 mg PO Q6-8H PRN nausea and 02/15/23 tablet vomiting #7 tabs Allergies Allergy/AdvReac Type Severity Reaction Status Date / Time No Known Allergies Allergy Verified 02/15/23 15:15 Review of Systems 2 Review of Systems: Yes all other systems are reviewed and are negative PMFSH Past Medical History Medical History Vitamin D deficiency Diverticulosis Overweight (BMI 25.0-29.9) Potential exposure to STD Low grade glioma of brain Surgical History Hx of colonoscopy H/O circumcision Hx of appendectomy Family History Family History Mother No problems noted. Father No problems noted. Social History Housing: Apartment Alcohol intake: never Patient Tobacco Use Status: Never used Tobacco Smoked in Last 30 Days: No e-Cigarette/Vaping Use: Never Used Second Hand Smoke Exposure: Yes Use of substances other than those prescribed or required for medical reasons: No Advance Directives: No Advance Directives Information Provided: Yes service: No Current occupational status: employed Current occupation: [employer] Cognitive needs: No Hearing needs: No Vision needs: No Physical Exam 2 Vital Signs: Vital Signs: Last Vital Signs Temp 98.2 F 02/15/23 19:01 Pulse 88 02/15/23 19:01 Resp 20 02/15/23 19:01 BP 133/87 02/15/23 19:01 Pulse Ox 99 02/15/23 19:01 O2 Del Method Room Air 02/15/23 19:01 BMI result Body Mass Index 27.4 Appearance: Alert. Oriented X3. No acute distress. Eyes: PERRLA, No Nystagmus ENT: Pharynx normal. Oral Mucosa moist Neck: Normal inspection. Neck supple. CVS: Normal heart rate and rhythm. Pulses normal. Respiratory: No respiratory distress. Equal air entry bilateral, no wheezing/rales/rhonchi Abdomen: Soft and nontender. Bowel sounds are present, no mass palpable, no CVA tenderness Skin: Skin warm and dry. Normal skin color. Normal skin turgor. Extremities: No lower extremity edema. No calf tenderness Neuro: Oriented X 3. No motor deficit. No sensory deficit.No cerebellar signs , cranial nerves II-XII intact Course Course Course Narrative: RME: 47yo M w/PMHx low grade glioma of brain, c/o VILLA, CP, shakiness, room spinning dizziness, N/V, chills x yesterday Ambulating w/steady gait, no tremors/shakes appreciates. +anxious EKG, Labs, CXR, UA, Orthoststics, viral studies ordered Full HPI, ROS and PE to be performed by primary ED provider. Medications Administered Discontinued Medications Generic Name Dose Route Start Last Admin Trade Name Chris PRN Reason Stop Dose Admin Acetaminophen/Butalbital/Caffeine 1 tab 02/15/23 19:09 02/15/23 19:32 Butalb/Acetamin/Caff 50/325/40 Tablet PO 02/15/23 19:10 1 tab ONCE ONE Administration Meclizine HCl 50 mg 02/15/23 19:09 02/15/23 19:33 Meclizine Hcl 25 Mg Tablet PO 02/15/23 19:10 50 mg ONCE ONE Administration Ondansetron HCl 4 mg 02/15/23 19:09 02/15/23 19:33 Ondansetron Odt 4 Mg Tab.Vinny GARCIAINGU 02/15/23 19:10 4 mg ONCE ONE Administration Medical Decision Making Medical Decision Making [facility] Narrative: Patient with nonspecific headache with history of low-grade glioma came for on specific headache and dizziness with anxiety CT is negative labs are stable discharge patient home Differential Diagnosis Differential Diagnoses: The differential diagnosis associated with the presentation includes Brain tumor/migraine headache/tension Admission/Observation Consideration of admission/observation: Escalation of care including admission/observation considered Lab Data [facility] Lab Attestation statement: I reviewed the patient's lab results. 02/15/23 15:39 02/15/23 15:39 Labs: Lab Results 02/15/23 Range/Units 15:39 WBC 11.8 H (4.8-10.8) X10*3/uL RBC 4.89 (4.60-5.80) X10*6/uL Hgb 14.8 (14.0-18.0) g/dl Hct 45.2 (42.0-52.0) % MCV 92.4 (80.0-98.0) fL MCH 30.3 (27.0-33.0) pg MCHC 32.7 (31.0-36.0) g/dl RDW 13.2 (11.0-16.0) % Plt Count 290 D (160-400) X10*3/uL MPV 9.8 (9.4-12.4) fL Immature Gran % (Auto) 0.3 (0.0-0.4) % Neut % (Auto) 88.6 H (45-73) % Lymph % (Auto) 6.0 L (20-40) % Howell % (Auto) 4.3 (2-11) % Eos % (Auto) 0.6 (0-4) % Baso % (Auto) 0.2 (0-2) % Lymph # (Auto) 0.7 L (1.2-4.9) X10*3/uL Howell # (Auto) 0.5 (0.1-1.2) X10*3/uL Eos # (Auto) 0.1 (0.0-0.4) X10*3/uL Baso # (Auto) 0.0 (0.0-0.2) X10*3/uL Abs Immat Gran (auto) 0.04 H (0.00-0.03) X10*3/uL Absolute Neuts (auto) 10.4 H (2.0-8.3) x10*3/uL Absolute Nucleated RBC 0.000 (0.0-0.012) X10*3/uL Nucleated RBC % (auto) 0.0 (0.0-0.2) /100WBC PT 11.2 (11.1-13.3) SEC INR 0.9 (0.9-1.1) Sodium 144 (135-145) mmol/L Potassium 4.1 (3.3-5.1) mmol/L Chloride 105 (96-108) mmol/L Carbon Dioxide 29 (22-29) mmol/L Anion Gap 14 (12-20) BUN 14 (9-16) mg/dL Creatinine 0.98 (0.5-1.4) mg/dL Estim Creat Clear Calc 90.0 Estimated GFR > 60 Random Glucose 90 (60-115) mg/dL Calcium 9.7 D (8.4-10.2) mg/dL Magnesium 1.9 (1.6-2.6) mg/dL Total Bilirubin 0.7 (0.0-1.0) mg/dL Direct Bilirubin 0.2 (0.0-0.5) mg/dL AST 21 (5-37) U/L ALT 26 (0-40) U/L Alkaline Phosphatase 50 (39-117) U/L Troponin I High Sens < 2.7 (<3.5-35.0) ng/L Total Protein 8.7 H (6.5-8.0) g/dL Albumin 4.6 (3.5-5.0) g/dL Lipase 18 (8-78) U/L COVID-19 (LIMA) Negative (Negative) COVID-19 Clin Com See Note Influenza Type A (KATIE) Negative (Negative) Influenza Type B (KATIE) Negative (Negative) Influenza A & B Note See Note Independent Interpretation I performed an independent interpretation of an: EKG and CT Scan Interpretation: Overall sense rhythm heart rate 78 beats per minute normal ST-T changes impression normal EKG Radiology Impression Discussion of test interpretation with radiology: I have reviewed the radiologist's reading. Discharge Plan Discharge Clinical Impression: Benign paroxysmal positional vertigo, Headache, migraine Patient Disposition: Home, Self-Care Instructions: Migraine Headache (ED), Benign Paroxysmal Positional Vertigo (ED) Additional Instructions: Take medication as prescribed Medication for dizziness every 8 hours as needed Medication for headache 1 tablet every 6-8 hours as needed Follow with PCP Prescriptions: New cxqnqbzafq-mrprdgqmzfmbq-ckau 50-325-40 mg tablet 1 tab PO Q6H PRN (Reason: haeadace) Qty: 20 0RF meclizine 25 mg tablet 25 mg PO TID PRN (Reason: dizziness) Qty: 20 0RF ondansetron 4 mg tablet,disintegrating 4 mg PO Q6-8H PRN (Reason: nausea and vomiting) Qty: 7 0RF No Action clotrimazole 1 % cream 1 appl topical BID 28 Days Qty: 45 1RF cholecalciferol (vitamin D3) 25 mcg (1,000 unit) tablet 25 mcg PO DAILY Qty: 90 0RF ibuprofen 600 mg tablet 600 mg PO Q8H PRN (Reason: pain) Qty: 20 0RF Interventions: ED Discharge Assessment Last Done: 02/15/23 20:28 Discharge Date/Time: 02/15/23 20:29
--- NOTE | 2023-02-15 15:14 | ECG_ITS ---
Test Reason : RAPID HEART BEAT Blood Pressure : / mmHG Vent. Rate : 078 BPM Atrial Rate : 078 BPM P-R Int : 136 ms QRS Dur : 088 ms QT Int : 352 ms P-R-T Axes : 066 003 029 degrees QTc Int : 401 ms Normal sinus rhythm Normal ECG When compared with ECG of 20-JUN-2021 20:35, No significant change was found Referred By: Lucy Booth Electronically Signed By:
[2023-02-15 15:48] LABS: MANUAL DIFF FLAG NO
[2023-02-15 15:49] LABS: Basophils Percent Auto 0.2 % (0-2); Eosinophils Absolute Auto 0.1 X10*3/uL (0.0-0.4); Eosinophils Percent Auto 0.6 % (0-4); Hematocrit 45.2 % (42.0-52.0); Hemoglobin 14.8 g/dl (14.0-18.0); Imm Gran Abs Auto 0.04 X10*3/uL (0.00-0.03); Imm Gran Pct Auto 0.3 % (0.0-0.4); Lymphocytes Absolute Auto 0.7 X10*3/uL (1.2-4.9); Mean Corpuscular HGB Conc 32.7 g/dl (31.0-36.0); Mean Corpuscular Hemoglobin 30.3 pg (27.0-33.0); Mean Corpuscular Volume 92.4 fL (80.0-98.0); Mean Platelet Volume 9.8 fL (9.4-12.4); Monocytes Absolute Auto 0.5 X10*3/uL (0.1-1.2); Monocytes Percent Auto 4.3 % (2-11); Neutrophils Absolute Auto 10.4 x10*3/uL (2.0-8.3); Neutrophils Percent Auto 88.6 % (45-73); Platelet Count 290 X10*3/uL (160-400); Red Blood Count 4.89 X10*6/uL (4.60-5.80); Red Cell Distribution Width 13.2 % (11.0-16.0); White Blood Count 11.8 X10*3/uL (4.8-10.8)
[2023-02-15 15:56] LABS: INTERNATIONAL NORM RATIO 0.9 (0.9-1.1); Prothrombin Time 11.2 SEC (11.1-13.3)
[2023-02-15 16:05] LABS: Alanine Aminotransferase 26 U/L (0-40); Albumin Level 4.6 g/dL (3.5-5.0); Alkaline Phosphatase 50 U/L (39-117); Anion Gap 14 (12-20); Aspartate Amino Transferase 21 U/L (5-37); Bilirubin Direct 0.2 mg/dL (0.0-0.5); Bilirubin Total 0.7 mg/dL (0.0-1.0); Blood Urea Nitrogen 14 mg/dL (9-16); COVID-19 Test Negative (Negative); Calcium 9.7 mg/dL (8.4-10.2); Carbon Dioxide 29 mmol/L (22-29); Chloride 105 mmol/L (96-108); Estimated Glomerular Filt Rate > 60; Glucose Random 90 mg/dL (60-115); IDNOW Serial# 08D9AD1C; IDNOW Serial# BCCEAD1C; Influenza A Negative (Negative); Influenza B2 Negative (Negative); Lipase 18 U/L (8-78); Magnesium 1.9 mg/dL (1.6-2.6); Potassium 4.1 mmol/L (3.3-5.1); Sodium 144 mmol/L (135-145); Total Protein 8.7 g/dL (6.5-8.0)
[2023-02-15 16:15] LABS: Troponin-I High Sensitivity < 2.7 ng/L (<3.5-35.0)
[2023-02-15 19:01] VITALS: BP 133/87; PULSE 88; RESP 20; TEMP 36.8; O2SAT 99
[2023-02-15] MEDS: Butalb/Acetamin/Caff 50/325/40 TABLET 1 TAB PO (19:32)
[2023-02-15] MEDS: Ondansetron ODT 4 MG TAB.RAPDIS TRANSLINGU (19:33)
[2023-02-15] MEDS: Meclizine HCl 25 MG TABLET 50 MG PO (19:33)
== END 2023-02-15 20:29 | disposition home or self-care (01) ==
PROVIDERS: Physician Assistant; Emergency Provider Internal Medicine; PCP Internal Medicine
DX: G43.909 Migraine, unspecified, not intractable, without status migrainosus (principal); R42 Dizziness and giddiness; R07.89 Other chest pain; R00.0 Tachycardia, unspecified; Z11.52 Encounter for screening for COVID-19; Z20.822 Contact with and (suspected) exposure to COVID-19; Z79.899 Other long term (current) drug therapy
CPT/HCPCS: 36415; 70450; 71046; 80048; 80076; 83690; 83735; 84484; 85025; 85610; 87502; 87635; 93005; 99284

== ENCOUNTER 2023-03-17 09:27 | Emergency (ER) | payer OTHER, SELFPAY ==
--- NOTE | ~2023-03-17 | XR_ITS ---
EXAMINATION: XR WRIST, LEFT XR HAND, LEFT CLINICAL INFORMATION: Pain COMPARISON: None available. TECHNIQUE: PA, lateral, and oblique views of the left wrist and PA, lateral, and oblique views of the left hand FINDINGS: LEFT WRIST: The bones and soft tissues are normal. No fracture. Alignment is anatomic. Joint spaces are maintained. No erosions or soft tissue calcifications. LEFT HAND: The bones and soft tissues are normal. No fracture. Alignment is anatomic. Joint spaces are maintained. No erosions or soft tissue calcifications. XR/XR hand wrist LT IMPRESSION: Unremarkable left hand and wrist.
[2023-03-17 09:49] VITALS: BP 141/88; PULSE 71; RESP 18; TEMP 36.4; O2SAT 99; BMI 25.0
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
== END 2023-03-17 13:02 | disposition home or self-care (01) ==
PROVIDERS: Emergency Provider Emergency Medicine; PCP Internal Medicine
DX: M25.532 Pain in left wrist (principal); M79.602 Pain in left arm; R60.0 Localized edema; Z79.899 Other long term (current) drug therapy
CPT/HCPCS: 73110; 73130; 99282; 99283

== ENCOUNTER 2023-04-14 16:14 | Outpatient (AMB) | payer OTHER, SELFPAY ==
[2023-04-14 16:15] VITALS: BP 130/80; PULSE 71; O2SAT 98; BMI 26.7
--- NOTE | 2023-04-14 16:15 | A.OFFPC_ITS ---
Vital Signs 04/14/23 16:15 Height 5 ft 6 in Weight 165 lb 8 oz BMI 26.7 BP 130/80 Blood Pressure Location Lt brachial Position Sitting Pulse 71 Pulse Source Pulse Oximeter Pulse Oximetry (%) 98 Oxygen Delivery Method Room Air Intake Visit Reasons: annual exam Neuroradiologist Required: No Accompanied by: Self / Same As Patient Allergies No Known Allergies Allergy (Verified 04/14/23 16:45) Medication List - Last Reconciled 04/14/23 by Dio Oden MD [id number] 50-325-40 mg 1 tab PO Q6H PRN cholecalciferol (vitamin D3) 25 mcg PO DAILY clotrimazole 1% 1 appl topical BID 4 weeks ibuprofen 600 mg PO Q8H PRN meclizine 25 mg PO TID PRN ondansetron 4 mg PO Q6-8H PRN Tobacco use date assessed: 04/14/23 Dental Screening Dental Screen Date: 04/14/23 Did you have a dental visit in the last 12 months?: No Did you have a dental problem in the last 6 months where you did not have access to dental care?: No Was dental information given to patient?: No HPI annual exam HPI Details Patient comes in today for his annual physical examination States that he feels okay Patient went to the ER a couple of times all over the past 2 months - first visit was for a bout of vertigo in late January 2023 and he had a head CT done, which showed no significant change in his low grade glioma for a couple of years ago His second visit was for an acute wrist injury and imaging studies revealed no acute injury States that he has not had any further bouts of vertigo or dizziness and his wrist injury have also healed up over the past month or so He denies any headaches recently Denies any chest pains, no SOB No nausea/vomiting, no abdominal pain No change in bowel habits noted Denies any acute urinary symptoms He would like to get STD testing again together with all of his other labs He had his screening colonoscopy done with Dr. Cullen a few months ago in January 2023 - was advised that aside from some internal hemorrhoids, his colonoscopy came out normal and his next colonoscopy will be due in 10 years [facility] Medical History (Updated 04/15/23 @ 04:51 by Dio Oden MD) Vitamin D deficiency Diverticulosis Overweight (BMI 25.0-29.9) Potential exposure to STD Low grade glioma of brain Surgical History Hx of colonoscopy H/O circumcision Hx of appendectomy Family History Mother No problems noted. Father No problems noted. Social History Housing: Apartment Alcohol intake: never Patient Tobacco Use Status: Never used Tobacco e-Cigarette/Vaping Use: Never Used Second Hand Smoke Exposure: Yes service: No Current occupational status: employed Current occupation: [employer] Cognitive needs: No Hearing needs: No Vision needs: No Questionnaire PHQ-9 Over the last 2 weeks, how often have you been bothered by any of the following problems? 1. Little interest or pleasure in doing things: several days 2. Feeling down, depressed, or hopeless: several days 3. Trouble falling or staying asleep, or sleeping too much: several days 4. Feeling tired or having little energy: several days 5. Poor appetite or overeating: not at all 6. Feeling bad about yourself - or that you are a failure or have let yourself or your family down: not at all 7. Trouble concentrating on things, such as reading the newspaper or watching television: not at all 8. Moving or speaking so slowly that other people could have noticed. Or the opposite - being so fidgety or restless that you have been moving around a lot more than usual: not at all 9. Thoughts that you would be better off or of hurting yourself in some way: not at all Total score: 4 Depression Screening Interpretation: Positive Depression Screening Follow-up: Community Mental Health Worker F/U and Declines treatment Depression Screening Done: Yes 70134 - PHQ-9 Billing: Yes Source: Developed by Drs. Michael Kirkpatrick, Renée Ibarra, Javier Fan and colleagues, with an educational lucila from [email or web address]. Thrive Questionnaire Date Thrive assessed: 04/14/23 I am a: Patient What is your living situation today?: I have a steady place to live Within the past 12 months, did the food you bought not last and you didn't have the money to get more?: Never true Within the past 12 months, did you worry whether your food would run out before you got money to buy more?: Never true Do you have trouble paying for medicines?: No Do you have trouble getting transportation to medical appointments?: No Do you have trouble paying your heating and electricity bill?: No Do you have trouble taking care of your child, family member or friend?: No Do you have trouble with day-to-day activities such as bathing, preparing meals, shopping, managing finances, etc.?: No Are you currently unemployed and looking for a job?: No Are you interested in more education?: No Please select the resources that you would like help with: None Currently or been in a relationship where the following occur: no concerns reported THRIVE Score: 0 AUDIT C Alcohol Use Questionnaire (AUDIT-C) 1. How often do you have a drink containing alcohol?: Never 3. How often do you have six or more drinks on one occasion?: Never Total Score: 0 Score Reviewed/Action Taken: Yes VALERIO-7 AMB Questionnaire VALERIO-7 Date VALERIO - 7 assessed: 04/14/23 Feeling nervous, anxious, or on edge: 1 = Several days Not being able to stop or control worryin = Several days Worrying too much about different things: 1 = Several days Trouble relaxin = Several days Being so restless that it is hard to sit still: 1 = Several days Becoming easily annoyed or irritable: 1 = Several days Feeling afraid as if something awful might happen: 1 = Several days Total VALERIO-7 score (0-4 normal; 5-9 mild; 10-14 moderate; 15-21 severe): 7 Source: Developed by Drs. Michael Kirkpatrick, Renée Ibarra, Javier Fan and colleagues, with an educational lucila from [email or web address]. VALERIO-7 Assessment Billing VALERIO-7 Assessment Tool: VALERIO-7 Assessment 49863 Review of Systems Const Denies chills, Denies fatigue, Denies fever(s), Denies headache(s), Denies malaise and Denies weakness Eyes Denies blurry vision, Denies change in vision, Denies irritation and Denies itch y eyes ENT Denies dysphagia, Denies dizziness, Denies otalgia, Denies headache(s), Denies nasal congestion, Denies neck pain, Denies odynophagia and Denies sore throat Card Denies chest pain, Denies rapid heart rate, Denies irregular heart rhythm, Denies palpitations and Denies dyspnea Resp Denies chest congestion, Denies cough, Denies dyspnea and Denies wheezing GI Denies abdominal pain, Denies bloating, Denies constipation, Denies dysphagia, Denies heartburn, Denies diarrhea, Denies nausea, Denies odynophagia and Denies vomiting Denies hematuria, Denies difficulty urinating, Denies dysuria, Denies urinary frequency and Denies urinary urgency Musc Denies back pain, Denies arthralgias, Denies joint swelling, Denies muscle weakness and Denies neck pain Skin/Breast Denies change in pigmentation, Denies lesions, Denies rash and Denies unusual bruising Neuro Denies dizziness, Denies headache(s), Denies paresthesias and Denies weakness Endo Denies fatigue and Denies palpitations Aller/Immun Denies itchy eyes and Denies wheezing Physical exam (Primary Care) Vital Signs: Last Vital Signs Pulse 71 04/14/23 16:15 BP 130/80 04/14/23 16:15 Pulse Ox 98 04/14/23 16:15 Oxygen Delivery Method Room Air 04/14/23 16:15 BMI result Body Mass Index 26.7 Tobacco/Smoking Status: Tobacco use Status Tobacco use date assessed 04/14/23 04/14/23 16:17 Patient Tobacco Use Status Never used Tobacco 04/14/23 16:17 e-Cigarette/Vaping Use Never Used 04/14/23 16:17 PHQ-9: PHQ-9 Score PHQ-9: Total score 4 04/14/23 16:48 Depression Screening Interpretation: Positive Depression Screening Follow-up: Community Mental Health Worker F/U and Declines treatment Thrive Assessment: Date of Thrive Assessment Date Thrive assessed 04/14/23 04/14/23 16:17 Currently or been in a relationship where the following occur: no concerns reported Const General: no acute distress, alert and awake Orientation/consciousness: patient oriented x3 HENMT Head: Yes normocephalic and Yes atraumatic Ears: external ears normal, TM's normal bilaterally and EAC's normal General nose exam: No nasal discharge present Face and sinus: Yes normal facial exam and Yes sinuses nontender Teeth and gingiva: dentition normal Throat: Yes posterior oropharynx normal and Yes tonsils normal (no TP congestion) Eyes Eyelids: Yes eyelids normal Conjunctivae: conjunctivae normal Pupils: Equal, round and reactive pupils present EOM: EOMs intact bilaterally Neck Neck: Yes no lymphadenopathy and Yes supple Thyroid: Thyroid normal Resp Auscultation: clear to auscultation bilaterally, no rales and no wheezes Cardio Rate: regular rate Rhythm: regular rhythm Heart sounds: no murmurs GI Palpation (GI): Soft to palpation, nontender and No hepatosplenomegaly present Auscultation: normal bowel sounds General: Yes no CVA tenderness Back/Spine/Pelvis Back: no CVA tenderness Thoracic/Lumbar Spine: thoracic and lumbar spine normal to inspection Skin Lesions: no lesions Rashes: no rashes Neuro General: patient oriented x3, moves all extremities, no focal motor deficits and CN's II-XI intact bilaterally Cranial nerves: Yes Equal, round and reactive pupils present Cognition (Neuro): normal cognition Gait exam (Neuro): Normal gait present Extrem General: Yes no clubbing, cyanosis or edema Assessment and Plan Assessment & Plan (1) Annual physical exam: Code(s): Z00.00 - Encounter for general adult medical examination without abnormal findings Plan: Check labs He is up-to-date with his cancer screenings at present (2) Low grade glioma of brain: Comment: MRI of the brain done back on 05/06/2016 showed a stable infiltrating non- enhancing, hyperintense lesion in the inferior left temporal lobe with cortical thickening. Findings are consistent with a low-grade glioma Code(s): C71.9 - Malignant neoplasm of brain, unspecified Plan: Was last seen by neurosurgery (Dr. Berrios) in 2014 and recommended to have follow up brain MRI every 2 to 3 years for continuing surveillance as patient appeared stable at the time Head CT back in September 2021 revealed no interval change compared to head CT in September 2020, with no evidence of midline shift or mass effect He recently had a head CT done at the ER in January 2023 when he presented with symptoms of increasing vertigo - head CT done also showed no changes from previous Will continue to monitor and observe patient regularly for now (3) Vitamin D deficiency: Code(s): E55.9 - Vitamin D deficiency, unspecified Plan: Continue Vitamin D3 1000 units QD Will recheck his labs and vitamin D level for follow up (4) Overweight (BMI 25.0-29.9): Code(s): E66.3 - Overweight Plan: Reinforced diet/exercise as tolerated/lose weight (5) Potential exposure to STD: Code(s): Z20.2 - Contact with and (suspected) exposure to infections with a predominantly sexual mode of transmission Plan: Per request, will include again routine STD testing with his labs Plan Follow up in 6 months Orders: Orders TSH reflex Free T4 04/14/23 E78.00 - Pure hypercholesterolemia, unspecified, Z00.00 - Encounter for general adult medical examination without abnormal findings UA CC w/rflx Micro + Cult 04/14/23 R30.0 - Dysuria, Z00.00 - Encounter for general adult medical examination without abnormal findings Vitamin D 25-OH Total 04/14/23 E55.9 - Vitamin D deficiency, unspecified, Z00.00 - Encounter for general adult medical examination without abnormal findings Prostate Specific Antigen Scr 04/14/23 Z00.00 - Encounter for general adult medical examination without abnormal findings CT NG by PCR 04/14/23 Z20.2 - Contact with and (suspected) exposure to infections with a predominantly sexual mode of transmission Complete Blood Count Auto Diff 04/14/23 D64.9 - Anemia, unspecified, Z00.00 - Encounter for general adult medical examination without abnormal findings Comprehensive Arnold. Panel Fast 04/14/23 E78.00 - Pure hypercholesterolemia, unsp ecified, Z00.00 - Encounter for general adult medical examination without abnormal findings Lipid Panel 04/14/23 E78.00 - Pure hypercholesterolemia, unspecified, Z00.00 - Encounter for general adult medical examination without abnormal findings Hepatitis B,C Profile 04/14/23 Z20.2 - Contact with and (suspected) exposure to infections with a predominantly sexual mode of transmission HIV Ab/Ag 04/14/23 Z20.2 - Contact with and (suspected) exposure to infections with a predominantly sexual mode of transmission Syphilis Screen 04/14/23 Z20.2 - Contact with and (suspected) exposure to infections with a predominantly sexual mode of transmission HSV I and II,IHC 04/14/23 Z20.2 - Contact with and (suspected) exposure to infections with a predominantly sexual mode of transmission Coding Level of Care Code Est Pt Prev Care 40-64y([id number]) Diagnoses Annual physical exam Z00.00 Low grade glioma of brain C71.9 Vitamin D deficiency E55.9 Overweight (BMI 25.0-29.9) E66.3 Potential exposure to STD Z20.2 Additional Codes VALERIO-7 Assessment Billing - VALERIO-7 Assessment Tool: VALERIO-7 Assessment [id number] ([id number])
== END 2023-04-14 17:05 | disposition home or self-care (01) ==
PROVIDERS: PCP Internal Medicine; Visit Provider Internal Medicine
DX: Z00.00 Encounter for general adult medical examination without abnormal findings (principal); C71.9 Malignant neoplasm of brain, unspecified; E55.9 Vitamin D deficiency, unspecified; E66.3 Overweight; Z20.2 Contact with and (suspected) exposure to infections with a predominantly sexual mode of transmission
CPT/HCPCS: 99396

== ENCOUNTER 2023-04-15 10:26 | Outpatient (REF) | payer OTHER, SELFPAY ==
[2023-04-15 10:59] LABS: MANUAL DIFF FLAG NO
[2023-04-15 11:51] LABS: Appearance Urine Clear; Color Urine Yellow; Glucose Urine UA Negative (Negative); Leukocyte Esterase Urine Negative (Negative); Nitrite Urine Negative (Negative); PH 7.5 (5.0-9.0); Urine Blood Negative (Negative); Urine Ketones Negative (Negative); Urine Protein Negative (Neg-Trace)
[2023-04-15 12:00] LABS: Basophils Percent Auto 0.4 % (0-2); Eosinophils Percent Auto 0.7 % (0-4); Hematocrit 41.5 % (42.0-52.0); Hemoglobin 13.6 g/dl (14.0-18.0); Imm Gran Abs Auto 0.02 X10*3/uL (0.00-0.03); Imm Gran Pct Auto 0.4 % (0.0-0.4); Lymphocytes Absolute Auto 1.9 X10*3/uL (1.2-4.9); Lymphocytes Percent Auto 33.9 % (20-40); Mean Corpuscular HGB Conc 32.8 g/dl (31.0-36.0); Mean Corpuscular Hemoglobin 30.1 pg (27.0-33.0); Mean Corpuscular Volume 91.8 fL (80.0-98.0); Mean Platelet Volume 10.4 fL (9.4-12.4); Monocytes Absolute Auto 0.4 X10*3/uL (0.1-1.2); Monocytes Percent Auto 7.5 % (2-11); Neutrophils Absolute Auto 3.1 x10*3/uL (2.0-8.3); Neutrophils Percent Auto 57.1 % (45-73); Platelet Count 305 X10*3/uL (160-400); Red Blood Count 4.52 X10*6/uL (4.60-5.80); Red Cell Distribution Width 12.9 % (11.0-16.0); White Blood Count 5.5 X10*3/uL (4.8-10.8)
[2023-04-15 12:44] LABS: Alanine Aminotransferase 21 U/L (0-40); Albumin Level 4.3 g/dL (3.5-5.0); Alkaline Phosphatase 51 U/L (39-117); Anion Gap 13 (12-20); Aspartate Amino Transferase 18 U/L (5-37); Bilirubin Total 0.6 mg/dL (0.0-1.0); Blood Urea Nitrogen 12 mg/dL (9-16); Calcium 9.6 mg/dL (8.4-10.2); Carbon Dioxide 28 mmol/L (22-29); Chloride 104 mmol/L (96-108); Cholesterol 210 mg/dL (<200); Estimated Glomerular Filt Rate > 60; Glucose Fasting 69 mg/dL (60-99); HDL Cholesterol 90 mg/dL (>40); LDL Cholesterol Calculated 113 mg/dL (<100); Potassium 4.1 mmol/L (3.3-5.1); Sodium 141 mmol/L (135-145); Triglycerides 39 mg/dL (<150)
[2023-04-15 12:51] LABS: Syphilis Screen Nonreactive (Nonreactive)
[2023-04-15 12:52] LABS: Prostate Specific Antigen Scr 0.79 ng/mL (<0.05-4.0)
[2023-04-15 13:01] LABS: TSH reflex Free T4 0.32 uIU/mL (0.32-4.0); Vitamin D 25-OH Total 27.4 ng/mL (>30)
[2023-04-15 13:14] LABS: Erythrocyte Sedimentation Rate 13 MM/HR (0-15)
[2023-04-15 13:24] LABS: CT PCR NOT DETECTED (Not Detect.); NG PCR NOT DETECTED (Not Detect.)
[2023-04-16 08:11] LABS: HBS Num1 47.15 mIU/mL (0-7.99); HBc Num1 0.06 S/CO (0.00-0.79); HBsAGNum1 0.28 S/CO (0.00-0.99); HIV AB/AG Nonreactive (Nonreactive); HIV Num 1 0.09 S/CO (0.00-0.99); Hepatitis B Core Antibody Nonreactive (Nonreactive); Hepatitis B Surface Antigen Negative (Negative); ~HepC Num1 0.09 S/CO (0.00-0.79); ~Hepatitis B Surface Antibody REACTIVE (Nonreactive); ~Hepatitis C Antibody Nonreactive (Nonreactive)
== END 2023-04-15 10:27 | disposition home or self-care (01) ==
LOC: HO.LAB 10:26
PROVIDERS: PCP Nurse Practitioner Family; Visit Provider Internal Medicine
DX: Z00.00 Encounter for general adult medical examination without abnormal findings (principal); Z11.4 Encounter for screening for human immunodeficiency virus [HIV]; C71.9 Malignant neoplasm of brain, unspecified; E78.00 Pure hypercholesterolemia, unspecified; R30.0 Dysuria; E55.9 Vitamin D deficiency, unspecified; Z20.2 Contact with and (suspected) exposure to infections with a predominantly sexual mode of transmission
CPT/HCPCS: 0353U; 80053; 80061; 81003; 82306; 84153; 84443; 85025; 85652; 86704; 86706; 86780; 86803; 87340; 87389

== ENCOUNTER 2023-06-02 12:06 | Outpatient (REF) | payer OTHER, SELFPAY ==
[2023-06-02 12:43] LABS: Appearance Urine Clear; Color Urine Yellow; Glucose Urine UA Negative (Negative); Leukocyte Esterase Urine Negative (Negative); Nitrite Urine Negative (Negative); PH 6.5 (5.0-9.0); Specific Gravity - Urine 1.025 (1.005-1.025); UMIC TRIGGER UACC YES; Urine Blood Trace (Negative); Urine Ketones Negative (Negative); Urine Protein Negative (Neg-Trace)
[2023-06-02 12:48] LABS: Bacteria Urine None Seen (None Seen); Hyaline Casts Urine 0-2 /LPF (0-2); Squamous Epithelial Cell Urine 0-2 /HPF (0-2); WBC Urine 0-5 /HPF (0-5)
[2023-06-02 16:12] LABS: CT PCR NOT DETECTED (Not Detect.); NG PCR NOT DETECTED (Not Detect.)
== END 2023-06-02 12:07 | disposition home or self-care (01) ==
LOC: HO.LNP 12:06
PROVIDERS: Visit Provider Internal Medicine
DX: R30.0 Dysuria (principal)
CPT/HCPCS: 0353U; 81001

== ENCOUNTER 2023-07-14 06:39 | Emergency (ER) | payer OTHER, SELFPAY ==
--- NOTE | 2023-07-14 | ECG_ITS ---
Test Reason : chest pain Blood Pressure : / mmHG Vent. Rate : 070 BPM Atrial Rate : 070 BPM P-R Int : 144 ms QRS Dur : 090 ms QT Int : 366 ms P-R-T Axes : 076 041 031 degrees QTc Int : 395 ms Normal sinus rhythm Normal ECG When compared with ECG of 15-FEB-2023 15:31, T wave amplitude has increased in Lateral leads Referred By: Generic ED Physician Electronically Signed By:RENUKA ALLEN MD
--- NOTE | ~2023-07-14 | CT_ITS ---
EXAMINATION: CT HEAD WITHOUT CONTRAST CLINICAL INFORMATION: Seizure, confusion COMPARISON: 02/15/2023 all TECHNIQUE: Contiguous axial imaging was performed from the skull base to vertex without intravenous administration of contrast. This CT examination was performed using dose optimization techniques as appropriate, variously including the following: *Automated exposure control *Adjustment of mA and/or kV according to patient size (this includes techniques or standardized protocols for targeted exams where dose is matched to indication/reason for exam; i.e. extremities or head) *Use of iterative reconstruction technique DLP: 585 mGy-cm FINDINGS: Intracranial structures are unremarkable. Hunt-white matter differentiation is preserved. No evolving infarct, mass lesion, mass effect or midline shift seen. No hemorrhage or extra-axial fluid collections are identified. Intraorbital structures are unremarkable. Right frontal and right ethmoid sinus mucosal thickening is present. CT/CT head/brain wo IV con IMPRESSION: No acute intracranial pathology. Right frontal and ethmoid sinus disease.
--- NOTE | ~2023-07-14 | XR_ITS ---
EXAMINATION: XR CHEST CLINICAL INFORMATION: Seizure, confusion. COMPARISON: Chest radiograph 02/15/2023. TECHNIQUE: 2 views of the chest were obtained. FINDINGS: The lungs are adequately expanded. No focal consolidation. No pleural effusion, edema or pneumothorax. The cardiomediastinal silhouette is within normal limits. No acute osseous abnormality. XR/XR chest 2V IMPRESSION: No acute pulmonary disease.
[2023-07-14 06:46] VITALS: BP 131/92; PULSE 73; RESP 16; TEMP 36.6; O2SAT 99; BMI 26.4
--- NOTE | 2023-07-14 07:12 | ED_ITS ---
HPI - General Adult General Chief complaint: Seizure Stated complaint: recent seizure, approx 30 min upon arrival Time Seen by Provider: 07/14/23 07:12 Source: patient and other (patient's girlfriend provided additional history and confirmed the history provided by the patient) Mode of arrival: ambulatory Limitations: no limitations History of Present Illness HPI narrative: Patient is a 48 year old assigned male at with a history of a low grade glioma of the brain presenting to the emergency department today after a possible seizure. Patient states that at 0045 this morning his girlfriend noticed that he was snoring loudly, shaking, and drooling. Patient's girlfriend states that she was unable to arouse the patient and after he did wake up, he seemed confused for a few minutes. Patient denies any incontinence. Patient states that his glioma was last visualized in January of 2023 and was stable. Patient denies any dizziness, lightheadedness, abdominal pain, nausea, vomiting, fever, chills, blurry vision, double vision, loss of vision, chest pain, difficulty breathing, shortness of breath, back pain, night sweats, pain with urination, increased urinary frequency, increased urinary urgency, blood in his urine or stool, syncope or a near syncopal episode, recent trauma or falls, bowel incontinence, bladder incontinence, bowel retention, bladder retention, or any other complaints at this time. Relieving factors: none Exacerbating factors: none Associated symptoms: seizure (possible) Treatments prior to arrival: none Related Data Previous Rx's ?Medication ?Instructions ?Recorded cholecalciferol (vitamin D3) 25 25 mcg PO DAILY #90 tabs 03/07/22 mcg (1,000 unit) tablet ibuprofen 600 mg tablet 600 mg PO Q8H PRN pain #20 tabs 03/07/22 clotrimazole 1 % topical cream 1 appl topical BID 4 weeks #45 09/24/22 grams iwfnzllvrt-wbgkevnrpuqgl-lqjttxyz 1 tab PO Q6H PRN haeadace #20 tabs 02/15/23 50 mg-325 mg-40 mg tablet meclizine 25 mg tablet 25 mg PO TID PRN dizziness #20 tabs 02/15/23 ondansetron 4 mg disintegrating 4 mg PO Q6-8H PRN nausea and 02/15/23 tablet vomiting #7 tabs Allergies Allergy/AdvReac Type Severity Reaction Status Date / Time No Known Allergies Allergy Verified 07/14/23 06:53 Review of Systems 2 Constitutional: Constitutional: Reports no additional constitutional complaints, Denies chills, Denies fever(s) and Denies night sweats Eyes: Eyes: Reports no additional eye complaints, Denies blurry vision, Denies change in vision, Denies diplopia, Denies eye discharge, Denies loss of vision and Denies eye pain ENT: Denies dizziness Cardiovascular: Cardiovascular: Reports no additional cardiovascular complaints, Denies chest pain, Denies lightheadedness, Denies Loss of Consciousness and Denies dyspnea Respiratory: Respiratory: Reports no additional respiratory complaints and Denies dyspnea Gastrointestinal: Gastrointestinal: Reports no additional gastrointestinal complaints, Denies abdominal pain, Denies melena, Denies hematochezia, Denies change in bowel habits and Denies change in stool character Genitourinary: Genitourinary: Reports no additional male genitourinary complaints, Denies hematuria, Denies oliguria, Denies difficulty urinating, Denies dysuria, Denies urinary frequency, Denies urinary hesitancy, Denies urinary incontinence and Denies urinary urgency Musculoskeletal: Musculoskeletal: Reports no additional musculoskeletal complaints, Denies numbness and Denies tingling Neurologic: Denies dizziness, Denies loss of vision, Denies numbness, Reports seizure-like activity and Denies tingling Psychiatric: Psychiatric: Reports no additional psychiatric complaints Endocrine: Endocrine: Reports no additional endocrine complaints Hematologic/Lymphatic: Hematologic/Lymphatic: Reports no additional hematologic/lymphatic complaints Allergic/Immunologic: Allergic/Immunologic: Reports no additional allergic/immunologic complaints [facility] Past Medical History Attestation statement: The following information was validated with the patient. (all information validated with the patient's girlfriend) Source: old records reviewed, obtained from family (patient's girlfriend provided additional history and confirmed the history provided by the patient) and nursing notes reviewed Medical History Vitamin D deficiency Diverticulosis Overweight (BMI 25.0-29.9) Potential exposure to STD Low grade glioma of brain Surgical History Hx of colonoscopy H/O circumcision Hx of appendectomy Family History Family History Mother No problems noted. Father No problems noted. 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 Cognitive needs: No Hearing needs: No Vision needs: No Physical Exam ED Vital Signs: Vital Signs - 24 hr 07/14/23 06:46 07/14/23 08:20 07/14/23 09:34 Temperature 98 F 97.7 F 97.7 F Pulse Rate 73 64 64 Respiratory Rate 16 16 16 Blood Pressure 131/92 H 131/87 131/87 Pulse Oximetry 99 100 100 Oxygen Delivery Method Room Air Room Air Room Air BMI result Body Mass Index 26.4 Const General: cooperative, no acute distress, alert and awake Nutritional Appearance: well nourished Orientation/consciousness: patient oriented x3 Limitations: no limitations HENMT Head: Yes normal to inspection and Yes atraumatic Ears: hearing grossly normal bilaterally and external ears normal General nose exam: Normal external nose present, no nasal discharge noted and no epistaxis Face and sinus: Yes normal facial exam, No abrasion and No laceration Mouth: Normal oral and palatal mucosa present, no drooling and no muffled voice Eyes General: appearance normal, both eyes and all related structures Periorbital: periorbital findings normal Eyelids: Yes eyelids normal Conjunctivae: conjunctivae normal Pupils: Equal, round and reactive pupils present EOM: EOMs intact bilaterally Neck Neck: Yes normal visual inspection, Yes full ROM and Yes no lymphadenopathy Chest Chest palpation & inspection: normal inspection of the chest Resp Effort & Inspection: normal respiratory effort and able to speak in complete sentences GI Inspection: Yes normal to inspection Neuro General: patient oriented x3 and moves all extremities Cranial nerves: Yes Equal, round and reactive pupils present Cognition (Neuro): normal cognition Motor exam (neuro): 5/5 motor strength present throughout Sensory Exam: Normal double simultaneous stimulation for sensation Coordination: nawcka-lr-asgm test normal Extrem General: Yes normal to inspection, Yes full ROM and Yes capillary refill normal Psych Appearance: grossly normal Mental Status: mental status grossly normal Affect: normal affect Attitude: cooperative Thought process: Normal thought process present Thought content: Normal thought content present Insight: Good insight present (Psych) Medical Decision Making Medical Decision Making [facility] Narrative: Patient is a 48 year old assigned male at with a history of glioma presenting to the emergency department today after a possible seizure. Patient's physical exam was unremarkable. Patient's blood work was unremarkable. Patient's urine showed no acute process. Patient's EKG was unremarkable. Patient's head CT showed no acute process and did not show any evidence of the known glioma changing. I consulted with my attending physician Dr. Braden who recommended the patient be discharged, follow up with his PCP, and instructed not to drive for at least 3 months. We discussed the possibility of starting the patient on anti- epileptic medications however, given this was his first seizure, and he had no activity while in the department - we opted not to start any medications at this time. I explained my physical exam findings as well as all test results to the patient and the patient's girlfriend. I answered all questions asked by the patient and the patient's girlfriend. I stressed the importance of the patient taking his medication as prescribed. I stressed the importance of the patient following up with his primary care provider and a neurologist. I stressed the importance of the patient returning to the emergency department immediately if his symptoms were to worsen or if he were to develop any dizziness, shortness of breath, difficulty breathing, chest pain, blurry vision, loss of vision, nausea, vomiting, abdominal pain, fever, chills, back pain, or any other complaints. Patient and the patient's girlfriend verbalized agreement and understanding with this treatment plan and discharge. Differential Diagnosis Differential Diagnoses: The differential diagnosis associated with the presentation includes Seizure Seizure like activity Admission/Observation Consideration of admission/observation: Escalation of care including admission/observation considered Patient would have been admitted to the hospital had his work up had any findings where hospital admission was appropriate and his clinical presentation warranted hospital admission. Lab Data [facility] Lab Attestation statement: I reviewed the patient's lab results. My interpretation of these results are in the [facility] Rationale portion of this note. 07/14/23 07:12 07/14/23 07:12 Labs: Lab Results 07/14/23 07/14/23 Range/Units 07:12 07:21 WBC 6.6 (4.8-10.8) X10*3/uL RBC 4.64 (4.60-5.80) X10*6/uL Hgb 13.8 L (14.0-18.0) g/dl Hct 41.7 L (42.0-52.0) % MCV 89.9 (80.0-98.0) fL MCH 29.7 (27.0-33.0) pg MCHC 33.1 (31.0-36.0) g/dl RDW 12.5 (11.0-16.0) % Plt Count 331 (160-400) X10*3/uL MPV 9.5 (9.4-12.4) fL Immature Gran % (Auto) 0.3 (0.0-0.4) % Neut % (Auto) 66.0 (45-73) % Lymph % (Auto) 26.4 (20-40) % [place] % (Auto) 6.5 (2-11) % Eos % (Auto) 0.5 (0-4) % Baso % (Auto) 0.3 (0-2) % Lymph # (Auto) 1.8 (1.2-4.9) X10*3/uL [place] # (Auto) 0.4 (0.1-1.2) X10*3/uL Eos # (Auto) 0.0 (0.0-0.4) X10*3/uL Baso # (Auto) 0.0 (0.0-0.2) X10*3/uL Abs Immat Gran (auto) 0.02 (0.00-0.03) X10*3/uL Absolute Neuts (auto) 4.4 (2.0-8.3) x10*3/uL Absolute Nucleated RBC 0.000 (0.0-0.012) X10*3/uL Nucleated RBC % (auto) 0.0 (0.0-0.2) /100WBC VBG pH 7.37 (7.32-7.43) VBG pCO2 53 mmHg VBG pO2 40 mmHg VBG HCO3 31 H (22-26) mmol/L VBG O2 Saturation 64.0 % VBG Base Excess 4.6 mmol/L Sodium 139 (135-145) mmol/L Potassium 4.2 (3.3-5.1) mmol/L Chloride 103 (96-108) mmol/L Carbon Dioxide 29 (22-29) mmol/L Anion Gap 11 L (12-20) BUN 10 (9-16) mg/dL Creatinine 0.87 (0.5-1.4) mg/dL Estim Creat Clear Calc 92.6 Estimated GFR > 60 Random Glucose 93 (60-115) mg/dL Lactic Acid 0.9 (0.5-2.0) mmol/L Calcium 9.4 (8.4-10.2) mg/dL Total Bilirubin 0.4 (0.0-1.0) mg/dL AST 19 (5-37) U/L ALT 22 (0-40) U/L Alkaline Phosphatase 52 (39-117) U/L Troponin I High Sens < 2.7 (<3.5-35.0) ng/L Total Protein 8.1 H (6.5-8.0) g/dL Albumin 4.1 (3.5-5.0) g/dL Lipase 15 (8-78) U/L Urine Color Yellow Urine Appearance Clear Urine pH 7.0 (5.0-9.0) Ur Specific [place] 1.010 (1.005-1.025) Urine Protein Negative (Neg-Trace) mg/dL Urine Glucose (UA) Negative (Negative) mg/dL Urine Ketones Negative (Negative) mg/dL Urine Blood Negative (Negative) Urine Nitrite Negative (Negative) Ur Leukocyte Esterase Negative (Negative) Urine Opiates Screen Not Detected (Not Detect) Ur Buprenorphine Scrn Not Detected (Not Detect) ng/mL Ur Oxycodone Screen Not Detected (Not Detect) ng/mL Urine Methadone Screen Not Detected (Not Detect) ng/mL Urine Fentanyl Screen Not Detected (Not Detect) Ur Barbiturates Screen Not Detected (Not Detect) Ur Phencyclidine Scrn Not Detected (Not Detect) Ur Amphetamines Screen Not Detected (Not Detect) U Benzodiazepines Scrn Not Detected (Not Detect) Urine Cocaine Screen Not Detected (Not Detect) U Marijuana (THC) Screen Not Detected (Not Detect) Independent Interpretation I performed an independent interpretation of an: Plain X-Ray and CT Scan Interpretation: My interpretation is in agreement with the radiologist's impression of these imaging studies. - EXAMINATION: CT HEAD WITHOUT CONTRAST CLINICAL INFORMATION: Seizure, confusion COMPARISON: 02/15/2023 all TECHNIQUE: Contiguous axial imaging was performed from the skull base to vertex without intravenous administration of contrast. This CT examination was performed using dose optimization techniques as appropriate, variously including the following: *Automated exposure control *Adjustment of mA and/or kV according to patient size (this includes techniques or standardized protocols for targeted exams where dose is matched to indication/reason for exam; i.e. extremities or head) *Use of iterative reconstruction technique DLP: 585 mGy-cm FINDINGS: Intracranial structures are unremarkable. Hunt-white matter differentiation is preserved. No evolving infarct, mass lesion, mass effect or midline shift seen. No hemorrhage or extra-axial fluid collections are identified. Intraorbital structures are unremarkable. Right frontal and right ethmoid sinus mucosal thickening is present. CT/CT head/brain wo IV con IMPRESSION: No acute intracranial pathology. Right frontal and ethmoid sinus disease. Dictated By: Catrina Barnes MD Signed By: Electronically signed by Catrina Barnes MD 07/14/23 0840 - EXAMINATION: XR CHEST CLINICAL INFORMATION: Seizure, confusion. COMPARISON: Chest radiograph 02/15/2023. TECHNIQUE: 2 views of the chest were obtained. FINDINGS: The lungs are adequately expanded. No focal consolidation. No pleural effusion, edema or pneumothorax. The cardiomediastinal silhouette is within normal limits. No acute osseous abnormality. XR/XR chest 2V IMPRESSION: No acute pulmonary disease. Dictated By: London Soto Signed By: Electronically signed by London Soto 07/14/23 0758 - Vent. Rate: 070 BPM Atrial Rate: 070 BPM P-R Int: 144 ms QRS Dur: 090 ms QT Int: 366 ms P-R-T Axes: 076 041 031 degrees QTc Int: 395 ms Normal sinus rhythm Normal ECG When compared with ECG of 15-FEB-2023 15:31, T wave amplitude has increased in Lateral leads Electronically Signed By:BRAYAN ALLEN MD Dictated By: Brayan Allen MD Signed By: Electronically signed by Brayan Allen MD 07/14/23 1014 Radiology Impression Discussion of test interpretation with radiology: I have reviewed the radiologist's reading. Independent Historian Clinical information obtained from an independent historian. History obtained from or confirmed by: Other (patient's girlfriend provided additional history and confirmed the history provided by the patient.) Critical Care Time Critical Care Time Critical Care Time: Yes Total Critical Care Time: 42 Attestation: I spent 42 minutes of Critical Care Time with this patient. This does not include time spent on separately reported billable procedures. Discharge Plan Discharge Clinical Impression: Seizure-like activity Patient Disposition: Home, Self-Care Instructions: New-Onset Seizure in Adults (ED) Additional Instructions: Your description of the episode sounds like a possible seizure. I recommend that you do not drive for 3 months or until you are formally cleared to do so by your PCP or a neurologist. Follow up with your primary care provider and a neurologist. Return to the emergency department immediately if your symptoms worsen or if you develop any dizziness, shortness of breath, difficulty breathing, chest pain, blurry vision, loss of vision, nausea, vomiting, abdominal pain, fever, chills, back pain, or any other complaints. Prescriptions: No Action clotrimazole 1 % cream 1 appl topical BID 28 Days Qty: 45 1RF rqneuoybom-lcqhtzgiwlzvt-mxsw 50-325-40 mg tablet 1 tab PO Q6H PRN (Reason: haeadace) Qty: 20 0RF meclizine 25 mg tablet 25 mg PO TID PRN (Reason: dizziness) Qty: 20 0RF ondansetron 4 mg tablet,disintegrating 4 mg PO Q6-8H PRN (Reason: nausea and vomiting) Qty: 7 0RF cholecalciferol (vitamin D3) 25 mcg (1,000 unit) tablet 25 mcg PO DAILY Qty: 90 0RF ibuprofen 600 mg tablet 600 mg PO Q8H PRN (Reason: pain) Qty: 20 0RF Ref[place]: [facility] [place] [facility] [place] Group] (Call to establish and follow up with a neurologist. If you already have a neurologist, please follow up with them.) Dio Oden MD [Primary Care Provider] - Stand Alone Forms: Work/School Release Interventions: ED Discharge Assessment Last Done: 07/14/23 09:34 Discharge Date/Time: 07/14/23 09:35 Print Language: Samoan
[2023-07-14 07:22] LABS: MANUAL DIFF FLAG NO
[2023-07-14 07:24] LABS: Basophils Percent Auto 0.3 % (0-2); Eosinophils Percent Auto 0.5 % (0-4); Hematocrit 41.7 % (42.0-52.0); Hemoglobin 13.8 g/dl (14.0-18.0); Imm Gran Abs Auto 0.02 X10*3/uL (0.00-0.03); Imm Gran Pct Auto 0.3 % (0.0-0.4); Lymphocytes Absolute Auto 1.8 X10*3/uL (1.2-4.9); Lymphocytes Percent Auto 26.4 % (20-40); Mean Corpuscular HGB Conc 33.1 g/dl (31.0-36.0); Mean Corpuscular Hemoglobin 29.7 pg (27.0-33.0); Mean Corpuscular Volume 89.9 fL (80.0-98.0); Mean Platelet Volume 9.5 fL (9.4-12.4); Monocytes Absolute Auto 0.4 X10*3/uL (0.1-1.2); Monocytes Percent Auto 6.5 % (2-11); Neutrophils Absolute Auto 4.4 x10*3/uL (2.0-8.3); Platelet Count 331 X10*3/uL (160-400); Red Blood Count 4.64 X10*6/uL (4.60-5.80); Red Cell Distribution Width 12.5 % (11.0-16.0); White Blood Count 6.6 X10*3/uL (4.8-10.8)
[2023-07-14 07:26] LABS: Venous Blood Gas Refer to POC result
[2023-07-14 07:27] LABS: VBG Base Excess 4.6 mmol/L; VBG HCO3 31 mmol/L (22-26); VBG pCO2 53 mmHg; VBG pH 7.37 (7.32-7.43); VBG pO2 40 mmHg
[2023-07-14 07:32] LABS: Appearance Urine Clear; Color Urine Yellow; Glucose Urine UA Negative (Negative); Leukocyte Esterase Urine Negative (Negative); Nitrite Urine Negative (Negative); Urine Blood Negative (Negative); Urine Ketones Negative (Negative); Urine Protein Negative (Neg-Trace)
[2023-07-14 07:37] LABS: Amphetamine Screen Urine Not Detected (Not Detect); Barbiturates, Urine Not Detected (Not Detect); Benzodiazepines Screen Urine Not Detected (Not Detect); Buprenorphine Scr Not Detected (Not Detect); Cannabinoid Screen Urine Not Detected (Not Detect); Cocaine Screen Urine Not Detected (Not Detect); Fentanyl, urine Not Detected (Not Detect); Methadone Screen, Urine Not Detected (Not Detect); Opiate Screen Urine Not Detected (Not Detect); Oxycodone Screen Urine Not Detected (Not Detect); Phencyclidine Screen Urine Not Detected (Not Detect)
[2023-07-14 07:42] LABS: Lactic Acid 0.9 mmol/L (0.5-2.0)
--- NOTE | 2023-07-14 07:42 | PC.NURSE ---
coming from home where partner states he had what appeared to be a seizure. alert and oriented at this time with even and unlabored respirations. IV established, awaiting results of ct/xray. call abarca within reach.
[2023-07-14 07:45] LABS: Alanine Aminotransferase 22 U/L (0-40); Albumin Level 4.1 g/dL (3.5-5.0); Alkaline Phosphatase 52 U/L (39-117); Anion Gap 11 (12-20); Aspartate Amino Transferase 19 U/L (5-37); Bilirubin Total 0.4 mg/dL (0.0-1.0); Blood Urea Nitrogen 10 mg/dL (9-16); Calcium 9.4 mg/dL (8.4-10.2); Carbon Dioxide 29 mmol/L (22-29); Chloride 103 mmol/L (96-108); Creatinine Clr Calc Pharmacy 92.6; Estimated Glomerular Filt Rate > 60; Glucose Random 93 mg/dL (60-115); Lipase 15 U/L (8-78); Potassium 4.2 mmol/L (3.3-5.1); Sodium 139 mmol/L (135-145); Total Protein 8.1 g/dL (6.5-8.0)
[2023-07-14 07:55] LABS: Troponin-I High Sensitivity < 2.7 ng/L (<3.5-35.0)
[2023-07-14 08:20] VITALS: BP 131/87; PULSE 64; RESP 16; TEMP 36.5; O2SAT 100
[2023-07-14 09:34] VITALS: BP 131/87; PULSE 64; RESP 16; TEMP 36.5; O2SAT 100
== END 2023-07-14 09:35 | disposition home or self-care (01) ==
PROVIDERS: Physician Assistant Medical; Emergency Provider Emergency Medicine; PCP Internal Medicine
DX: R56.9 Unspecified convulsions (principal); Z79.899 Other long term (current) drug therapy
CPT/HCPCS: 36415; 70450; 71046; 80053; 80307; 81003; 82803; 83605; 83690; 84484; 85025; 93005; 99284; 99285

== ENCOUNTER → 2023-07-14 06:41 | Outpatient (BNV) | payer SELFPAY | PROVIDERS: Emergency Provider Emergency Medicine; PCP Internal Medicine; Visit Provider Internal Medicine Cardiovascular Disease | DX: R07.9 Chest pain, unspecified (principal) | CPT/HCPCS: 93010 ==

== ENCOUNTER 2023-07-27 19:51 | Emergency (ER) | payer OTHER, SELFPAY ==
[2023-07-27 20:19] VITALS: BP 128/90; PULSE 85; RESP 14; TEMP 36.4; O2SAT 99; BMI 26.9
--- NOTE | 2023-07-27 20:19 | ED_ITS ---
HPI - General Adult General Chief complaint: Dental/Oral Stated complaint: jaw pain unable to open mouth fever Time Seen by Provider: 07/27/23 20:18 Source: patient Mode of arrival: ambulatory Limitations: no limitations History of Present Illness HPI narrative: Patient is a 48 year old assigned male at with a history of a stable low grade brain glioma presenting to the emergency department today with jaw and dental pain. Patient states that over the last 4 days his mouth has hurt, specifically his jaw. Patient denies any dizziness, lightheadedness, abdominal pain, nausea, vomiting, fever, chills, blurry vision, double vision, loss of vision, chest pain, difficulty breathing, shortness of breath, back pain, night sweats, pain with urination, increased urinary frequency, increased urinary urgency, blood in his urine or stool, syncope or a near syncopal episode, recent trauma or falls, bowel incontinence, bladder incontinence, bowel retention, bladder retention, or any other complaints at this time. Onset (ago): day(s) (4) Location: mouth Severity: mild Severity scale (1-10): 3 Quality: aching Pain Consistency: constant Relieving factors: none Exacerbating factors: none Associated symptoms: denies other symptoms Treatments prior to arrival: none Related Data Previous Rx's ?Medication ?Instructions ?Recorded cholecalciferol (vitamin D3) 25 25 mcg PO DAILY #90 tabs 03/07/22 mcg (1,000 unit) tablet ibuprofen 600 mg tablet 600 mg PO Q8H PRN pain #20 tabs 03/07/22 clotrimazole 1 % topical cream 1 appl topical BID 4 weeks #45 09/24/22 grams wxalxynimb-ongwwmfpwbvts-sabhgykf 1 tab PO Q6H PRN haeadace #20 tabs 02/15/23 50 mg-325 mg-40 mg tablet meclizine 25 mg tablet 25 mg PO TID PRN dizziness #20 tabs 02/15/23 ondansetron 4 mg disintegrating 4 mg PO Q6-8H PRN nausea and 02/15/23 tablet vomiting #7 tabs chlorhexidine gluconate 0.12 % 15 ml buccal BID #118 mL 07/27/23 mouthwash (Peridex) naproxen 500 mg tablet 500 mg PO BID 7 days #14 tabs 07/27/23 penicillin V potassium 500 mg 500 mg PO BID 10 days #20 tabs 07/27/23 tablet Allergies Allergy/AdvReac Type Severity Reaction Status Date / Time No Known Allergies Allergy Verified 07/27/23 20:20 Review of Systems Constitutional: Constitutional: Reports no additional constitutional complaints, Denies chills, Denies fever(s) and Denies night sweats Eyes: Eyes: Reports no additional eye complaints, Denies blurry vision, Denies change in vision, Denies diplopia, Denies eye discharge, Denies loss of vision and Denies eye pain ENT: Denies dizziness Comments: dental pain and jaw pain Cardiovascular: Cardiovascular: Reports no additional cardiovascular complaints, Denies chest pain, Denies lightheadedness, Denies Loss of Consciousness and Denies dyspnea Respiratory: Respiratory: Reports no additional respiratory complaints and Denies dyspnea Gastrointestinal: Gastrointestinal: Reports no additional gastrointestinal complaints, Denies abdominal pain, Denies melena, Denies hematochezia, Denies change in bowel habits and Denies change in stool character Genitourinary: Genitourinary: Reports no additional male genitourinary complaints, Denies hematuria, Denies oliguria, Denies difficulty urinating, Denies dysuria, Denies urinary frequency, Denies urinary hesitancy, Denies urinary incontinence and Denies urinary urgency Musculoskeletal: Musculoskeletal: Reports no additional musculoskeletal complaints, Denies numbness and Denies tingling Neurologic: Denies dizziness, Denies loss of vision, Denies numbness and Denies tingling Psychiatric: Psychiatric: Reports no additional psychiatric complaints Endocrine: Endocrine: Reports no additional endocrine complaints Hematologic/Lymphatic: Hematologic/Lymphatic: Reports no additional hematologic/lymphatic complaints Allergic/Immunologic: Allergic/Immunologic: Reports no additional allergic/immunologic complaints [facility] Past Medical History Attestation statement: The following information was validated with the patient. Source: old records reviewed and nursing notes reviewed Medical History Vitamin D deficiency Diverticulosis Overweight (BMI 25.0-29.9) Potential exposure to STD Low grade glioma of brain Surgical History Hx of colonoscopy H/O circumcision Hx of appendectomy Family History Family History Mother No problems noted. Father No problems noted. 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 Cognitive needs: No Hearing needs: No Vision needs: No Physical Exam ED Vital Signs: Vital Signs - 24 hr 07/27/23 20:19 07/27/23 20:37 Temperature 97.6 F 97.6 F Pulse Rate 85 85 Respiratory Rate 14 14 Blood Pressure 128/90 H 128/90 H Pulse Oximetry 99 99 Oxygen Delivery Method Room Air Room Air BMI result Body Mass Index 26.9 Const General: cooperative, no acute distress, alert and awake Nutritional Appearance: well nourished Orientation/consciousness: patient oriented x3 Limitations: no limitations HENMT Head: Yes normal to inspection and Yes atraumatic Ears: hearing grossly normal bilaterally and external ears normal General nose exam: Normal external nose present, no nasal discharge noted and no epistaxis Face and sinus: Yes normal facial exam, No abrasion and No laceration Mouth: no drooling, no muffled voice and other (small area of erythema / irritation present in the sublingual area) Eyes General: appearance normal, both eyes and all related structures Periorbital: periorbital findings normal Eyelids: Yes eyelids normal Conjunctivae: conjunctivae normal Pupils: Equal, round and reactive pupils present EOM: EOMs intact bilaterally Neck Neck: Yes normal visual inspection, Yes full ROM and Yes no lymphadenopathy Chest Chest palpation & inspection: normal inspection of the chest Resp Effort & Inspection: normal respiratory effort and able to speak in complete sentences GI Inspection: Yes normal to inspection Neuro General: patient oriented x3 and moves all extremities Cranial nerves: Yes Equal, round and reactive pupils present Cognition (Neuro): normal cognition Motor exam (neuro): 5/5 motor strength present throughout Sensory Exam: Normal double simultaneous stimulation for sensation Coordination: nfdido-kb-rhfv test normal Extrem General: Yes normal to inspection, Yes full ROM and Yes capillary refill normal Psych Appearance: grossly normal Mental Status: mental status grossly normal Affect: normal affect Attitude: cooperative Thought process: Normal thought process present Thought content: Normal thought content present Insight: Good insight present (Psych) Medications Administered Discontinued Medications Generic Name Dose Route Start Last Admin Trade Name Chris PRN Reason Stop Dose Admin Oxycodone HCl 5 mg 07/27/23 20:23 07/27/23 20:28 Oxycodone Hcl Immed Release 5 Mg Tablet PO 07/27/23 20:24 5 mg ONCE ONE Administration Medical Decision Making Medical Decision Making MDM Narrative: Patient is a 48 year old assigned male at with a history of low grade stable glioma of the brain presenting to the emergency department today with mouth and jaw pain. Patient's physical exam showed a small area of erythema/irritation in the sublingual area of the mouth but was otherwise unremarkable. I explained my physical exam findings to the patient. I answered all questions asked by the patient. I stressed the importance of the patient taking his medication as prescribed. I stressed the importance of the patient following up with his primary care provider and dentist. I stressed the importance of the patient returning to the emergency department immediately if his symptoms were to worsen or if he were to develop any dizziness, shortness of breath, difficulty breathing, chest pain, blurry vision, loss of vision, nausea, vomiting, abdominal pain, fever, chills, back pain, or any other complaints. Patient verbalized agreement and understanding with this treatment plan and discharge. Differential Diagnosis Differential Diagnoses: The differential diagnosis associated with the presentation includes Dental pain Mouth pain Mouth infection Dental infection Admission/Observation Consideration of admission/observation: Escalation of care including admissi on/observation considered Patient would have been admitted to the hospital had his clinical presentation warranted hospital admission. Prescription Management I considered prescription management with: Antibiotic (patient prescribed an antibiotic to cover for possible mouth infection) Discharge Plan Discharge Clinical Impression: Infection of mouth, Jaw pain Patient Disposition: Home, Self-Care Instructions: Oral Mucositis (ED), Atypical Facial Pain (ED) Additional Instructions: Follow up with your primary care provider and a dentist. Return to the emergency department immediately if your symptoms worsen or if you develop any dizziness, shortness of breath, difficulty breathing, chest pain, blurry vision, loss of vision, nausea, vomiting, abdominal pain, fever, chills, back pain, or any other complaints. Call or visit any of the clinics below to establish with a dentist: [facility] [address] [place] [id number] [facility] [address] [facility], [address] [address] [place] [address] [facility] [address] [facility] [address] [place] [address] [facility] [address] [place] [address] [place] [address] [place] [address] Prescriptions: New penicillin V potassium 500 mg tablet 500 mg PO BID 10 Days Qty: 20 0RF naproxen 500 mg tablet 500 mg PO BID 7 Days Qty: 14 0RF chlorhexidine gluconate [Peridex] 0.12 % mouthwash 15 ml buccal BID Qty: 118 0RF No Action clotrimazole 1 % cream 1 appl topical BID 28 Days Qty: 45 1RF irmsvlhucu-ujwrkxpykypfp-omqk 50-325-40 mg tablet 1 tab PO Q6H PRN (Reason: haeadace) Qty: 20 0RF meclizine 25 mg tablet 25 mg PO TID PRN (Reason: dizziness) Qty: 20 0RF ondansetron 4 mg tablet,disintegrating 4 mg PO Q6-8H PRN (Reason: nausea and vomiting) Qty: 7 0RF cholecalciferol (vitamin D3) 25 mcg (1,000 unit) tablet 25 mcg PO DAILY Qty: 90 0RF ibuprofen 600 mg tablet 600 mg PO Q8H PRN (Reason: pain) Qty: 20 0RF Referrals: Dio Oden MD [Primary Care Provider] - Stand Alone Forms: Work/School Release Interventions: ED Discharge Assessment Last Done: 07/27/23 20:37 Discharge Date/Time: 07/27/23 20:38 Print Language: Armenian
[2023-07-27] MEDS: oxyCODONE HCl Immed Release 5 MG TABLET PO (20:28)
[2023-07-27 20:37] VITALS: BP 128/90; PULSE 85; RESP 14; TEMP 36.4; O2SAT 99
== END 2023-07-27 20:38 | disposition home or self-care (01) ==
PROVIDERS: Emergency Provider Student in an Organized Health Care Education/Training Program; PCP Internal Medicine
DX: K08.89 Other specified disorders of teeth and supporting structures (principal); K04.7 Periapical abscess without sinus
CPT/HCPCS: 99283

== ENCOUNTER 2023-09-30 12:03 | Outpatient (AMB) | payer OTHER, SELFPAY ==
[2023-09-30 12:32] VITALS: BP 138/82; PULSE 63; BMI 25.5
--- NOTE | 2023-09-30 12:32 | A.OFFPC_ITS ---
Vital Signs 09/30/23 12:32 Height 5 ft 6 in Weight 158 lb 0.4 oz BMI 25.5 BP 138/82 Blood Pressure Location Lt brachial Position Sitting Pulse 63 Pulse Source Pulse Oximeter Oxygen Delivery Method Room Air Intake Visit Reasons: [facility] 07/13 seizure Intake Note: Patient is here for hospital discharge follow up. Patient was discharged from [facility] on 07/14/2023. Rice Drier Required: No Allergies No Known Allergies Allergy (Verified 10/05/23 02:25) Medication List - Last Reconciled 10/05/23 by Dio Oden MD myubhltsli-qkewjpygajffq-qszh 50-325-40 mg 1 tab PO Q6H PRN chlorhexidine gluconate 0.12% (Peridex) 15 mL buccal BID cholecalciferol (vitamin D3) 25 mcg PO DAILY clotrimazole 1% 1 appl topical BID 4 weeks ibuprofen 600 mg PO Q8H PRN meclizine 25 mg PO TID PRN naproxen 500 mg PO BID 7 days ondansetron 4 mg PO Q6-8H PRN penicillin V potassium 500 mg PO BID 10 days Tobacco use date assessed: 04/14/23 Dental Screening Dental Screen Date: 04/14/23 HPI [facility] 07/13 seizure HPI Details Patient comes in today for his follow up visit States that he currently feels okay He was apparently brought to the ER by his girlfriend back on 07/14/2023 for possible seizures His girlfriend reportedly noticed that he was snoring loudly, shaking, and drooling earlier that morning and she was unable to wake patient up immediately States that after patient did wake up, he appeared confused for a few minutes Work ups done in the ER, including labs, head CT, EKG and chest x-rays, all came out okay He was advised not to drive until he is cleared by neurology and was referred to neurology for further evaluation and management He is scheduled to be seen by neurology on 01/18/2024 but is requesting if he can be referred back to Dr. Vargas instead as he has been seen by Dr. Vargas in the past Patient states that he has no further recurrence of the above issues but did go back to the ER a couple of weeks later for what he thought was some dental issues/gum pain - was diagnosed with oral mucositis and prescribed some oral Penicillin, which did eventually clear up his gum symptoms He denies any headaches or dizziness lately Denies any chest pains, no SOB No nausea/vomiting, no abdominal pain No change in bowel habits noted PFSH Medical History Vitamin D deficiency Diverticulosis Overweight (BMI 25.0-29.9) Potential exposure to STD Low grade glioma of brain Surgical History Hx of colonoscopy H/O circumcision Hx of appendectomy Family History Mother No problems noted. Father No problems noted. 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 How often do you have a drink containing alcohol?: Never 3. How often do you have six or more drinks on one occasion?: Never Total Score: 0 Score Reviewed/Action Taken: Yes VALERIO-7 AMB Questionnaire VALERIO-7 Date VALERIO - 7 assessed: 04/14/23 Source: Developed by Drs. Michael Kirkpatrick, Renée Ibarra, Javier Fan and colleagues, with an educational lucila from [employer]. Review of Systems Const Denies chills, Denies fatigue, Denies fever(s) and Denies headache(s) ENT Denies dysphagia, Denies dizziness, Denies otalgia, Denies headache(s), Denies neck pain, Denies odynophagia and Denies sore throat Card Denies chest pain, Denies rapid heart rate, Denies irregular heart rhythm, Denies palpitations and Denies dyspnea Resp Denies chest congestion, Denies cough, Denies dyspnea and Denies wheezing GI Denies abdominal pain, Denies constipation, Denies dysphagia, Denies heartburn, Denies diarrhea, Denies nausea, Denies odynophagia and Denies vomiting Denies difficulty urinating, Denies dysuria and Denies urinary frequency Musc Denies back pain, Denies arthralgias and Denies neck pain Skin/Breast Denies rash Neuro Denies dizziness, Denies headache(s), Denies convulsions and Denies paresthesias Endo Denies fatigue and Denies palpitations Aller/Immun Denies wheezing Physical exam (Primary Care) Vital Signs: Last Vital Signs Pulse 63 09/30/23 12:32 BP 138/82 09/30/23 12:32 Oxygen Delivery Method Room Air 09/30/23 12:32 BMI result Body Mass Index 25.5 Tobacco/Smoking Status: Tobacco use Status Tobacco use date assessed 04/14/23 09/30/23 12:34 Patient Tobacco Use Status Never used Tobacco 09/30/23 12:34 e-Cigarette/Vaping Use Never Used 09/30/23 12:34 Thrive Assessment: Date of Thrive Assessment Date Thrive assessed 04/14/23 09/30/23 12:34 Const General: no acute distress and alert HENMT Ears: TM's normal bilaterally and EAC's normal Throat: Yes posterior oropharynx normal and Yes tonsils normal (no TP congestion) Neck Neck: Yes no lymphadenopathy and Yes supple Thyroid: Thyroid normal Resp Auscultation: clear to auscultation bilaterally, no rales and no wheezes Cardio Rate: regular rate Rhythm: regular rhythm Heart sounds: no murmurs GI Palpation (GI): Soft to palpation and nontender Auscultation: normal bowel sounds General: Yes no CVA tenderness Back/Spine/Pelvis Back: no CVA tenderness Skin Rashes: no rashes Extrem General: Yes no clubbing, cyanosis or edema Assessment and Plan Assessment & Plan (1) Witnessed seizure-like activity: Code(s): R56.9 - Unspecified convulsions Plan: Patient was brought to the ER by his girlfriend back on 07/14/2023 for possible seizures His girlfriend reportedly noticed that he was snoring loudly, shaking, and drooling earlier that morning and she was unable to wake patient up immediately States that after he did wake up, he appeared confused for a few minutes Work ups done in the ER, including labs, head CT, EKG and chest x-rays, all came out okay He will need further neurology evaluation, including an EEG, before he should resume driving again He is scheduled to be seen by [facility] Neurology on 01/18/2024 but is requesting if he can be referred back to Dr. Vargas instead as he has been seen by Dr. Vargas in the past - referral to Dr. Vargas done (2) Low grade glioma of brain: Comment: MRI of the brain done back on 05/06/2016 showed a stable infiltrating non- enhancing, hyperintense lesion in the inferior left temporal lobe with cortical thickening. Findings are consistent with a low-grade glioma Code(s): C71.9 - Malignant neoplasm of brain, unspecified Plan: Was last seen by neurosurgery (Dr. Berrios) in 2014 and recommended to have follow up brain MRI every 2 to 3 years for continuing surveillance as patient appeared stable at the time Head CT back in September 2021 revealed no interval change compared to head CT in September 2020, with no evidence of midline shift or mass effect He had a head CT done at the ER in January 2023 when he presented with symptoms of increasing vertigo and again in June 2023 when he was brought to the ER for possible seizure - both head CTs done have showed no changes from previous Will continue to monitor and observe patient regularly (3) Vitamin D deficiency: Code(s): E55.9 - Vitamin D deficiency, unspecified Plan: Continue Vitamin D3 1000 units QD (4) Overweight (BMI 25.0-29.9): Code(s): E66.3 - Overweight Plan: Reinforced diet/exercise as tolerated/lose weight Plan To return in 6 months for his next annual physical examination Orders: Orders Comprehensive [place]. Panel Fast 03/26/24 E78.00 - Pure hypercholesterolemia, unspecified, Z00.00 - Encounter for general adult medical examination without abnormal findings TSH reflex Free T4 03/26/24 E78.00 - Pure hypercholesterolemia, unspecified, Z00.00 - Encounter for general adult medical examination without abnormal findings UA CC w/rflx Micro + Cult 03/26/24 R30.0 - Dysuria, Z00.00 - Encounter for general adult medical examination without abnormal findings Vitamin D 25-OH Total 03/26/24 E55.9 - Vitamin D deficiency, unspecified, Z00.00 - Encounter for general adult medical examination without abnormal findings Complete Blood Count Auto Diff 03/26/24 D64.9 - Anemia, unspecified, Z00.00 - Encounter for general adult medical examination without abnormal findings Lipid Panel 03/26/24 E78.00 - Pure hypercholesterolemia, unspecified, Z00.00 - Encounter for general adult medical examination without abnormal findings Prostate Specific Antigen Scr 03/26/24 Z00.00 - Encounter for general adult medical examination without abnormal findings Referrals Neurology Referral R56.9 - Unspecified convulsions Coding Level of Care Code Est Pt Level 4 (22499) Diagnoses Witnessed seizure-like activity R56.9 Low grade glioma of brain C71.9 Vitamin D deficiency E55.9 Overweight (BMI 25.0-29.9) E66.3
== END 2023-09-30 13:25 | disposition home or self-care (01) ==
PROVIDERS: PCP Internal Medicine; Visit Provider Internal Medicine
DX: R56.9 Unspecified convulsions (principal); C71.9 Malignant neoplasm of brain, unspecified; E55.9 Vitamin D deficiency, unspecified; E66.3 Overweight
CPT/HCPCS: 99214

== ENCOUNTER 2024-01-18 12:32 | Outpatient (AMB) | payer OTHER, SELFPAY ==
--- NOTE | 2024-01-18 12:46 | MHC.OFFVIS ---
Vital Signs 01/18/24 12:47 Height 5 ft 6 in Weight 167 lb BMI 27.0 BP 120/78 Blood Pressure Location Rt brachial Position Sitting Pulse 69 Pulse Source Pulse Oximeter Pulse Oximetry (%) 98 Oxygen Delivery Method Room Air Intake Visit Reasons: ED-FRUIT STUFFER: Seizures Intake Note: Patient presents for a new patient evaluation for seizures. Media Associate Required: No Accompanied by: Self / Same As Patient Allergies No Known Allergies Allergy (Verified 01/18/24 12:49) Medication List - Last Reconciled 01/18/24 by Isi Dang MD No Known Home Meds HPI Comments Details: 48 year old male with history of seizures as a child, and abnormal lisha MRI presents today for an evaluation of his symptoms. GF states he had a seizure in 07/14/2023, at 1:30 AM, was brought to the ED where he was evaluated and discharged with follow up imaging He continues to have headaches daily several times of the day, takes advil as needed and reports some vision changes. He has not had an eye exam in over a year and notices difficulty reading text and floaters. Denies blurriness, or diplopia with the onset of headaches. Denies auras, nausea, vomitting, light, noise or smell sensitivites, falls, urine or bowel incontinence. - MRI of the brain done back on 05/06/2016 showed a stable infiltrating non-enhancing, hyperintense lesion in the inferior left temporal lobe with cortical thickening. 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 [facility] Medical History Abnormal MRI of head Vitamin D deficiency Diverticulosis Overweight (BMI 25.0-29.9) Potential exposure to STD Low grade glioma of brain Surgical History Hx of colonoscopy H/O circumcision Hx of appendectomy Family History Mother No problems noted. Father No problems noted. 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 Cognitive needs: No Hearing needs: No Vision needs: No Review of Systems Const Reports as per HPI and Reports headache(s) ENT Reports dizziness and Reports headache(s) Neuro Reports dizziness, Reports headache(s), Reports Other visual disturbances (Floaters and difficulty reading text during headaches.) and Reports seizure-like activity Physical Exam Vital Signs: Last Vital Signs Pulse 69 01/18/24 12:47 BP 120/78 01/18/24 12:47 Pulse Ox 98 01/18/24 12:47 Oxygen Delivery Method Room Air 01/18/24 12:47 BMI result Body Mass Index 27.0 Const General: cooperative and tired appearing Nutritional Appearance: average body habitus Orientation/consciousness: patient oriented x3 Eyes General: appearance normal, both eyes and all related structures Pupils: Equal, round and reactive pupils present, Pupils normal by confrontation and Pupil accommodation reflex normal EOM: EOMs intact bilaterally Direct Ophthalmoscopy: normal light reflex Neck Neck: Yes full ROM, Yes trachea midline and Yes supple Resp Effort & Inspection: normal respiratory effort and able to speak in complete sentences Neuro General: patient oriented x3, CN's II-XI intact bilaterally and deep tendon reflexes 2+ bilaterally Cranial nerves: Yes Equal, round and reactive pupils present, Yes Normal accommodation reflex present, Yes Bilaterally intact EOM present, Yes Midline tongue present, Yes Symmetric palate elevation present, Yes Ability to bilaterally rotate head present and Yes Ability to bilaterally elevate shoulders present Cognition (Neuro): normal cognition Gait exam (Neuro): Normal gait present Motor exam (neuro): 5/5 motor strength present throughout and Pronator motor function not present Deep tendon reflexes (DTR's): Right triceps reflex intensity grade: 2+, Left triceps reflex intensity grade: 2+, Rt Biceps (C5, C6): 2+, Left biceps reflex intensity grade: 2+, Right brachioradialis reflex intensity grade: 2+, Left brachioradialis reflex intensity grade: 2+, Right patellar reflex intensity grade: 2+, Left patellar reflex intensity grade: 2+, Right ankle reflex intensity grade: 2+ and Left ankle reflex intensity grade: 2+ Coordination: [id number] test normal and Romberg test negative Psych Affect: normal affect Attitude: cooperative Thought process: Normal thought process present Assessment & Plan Assessment & Plan (1) Witnessed seizure-like activity: Code(s): R56.9 - Unspecified convulsions Category: Medical Plan: Levitracetam 500 mg PO BID 60 tablets with 6 refills. (2) Abnormal MRI of head: Code(s): R93.0 - Abnormal findings on diagnostic imaging of skull and head, not elsewhere classified Category: Medical (3) Low grade glioma of brain: Comment: MRI of the brain done back on 05/06/2016 showed a stable infiltrating non-enhancing, hyperintense lesion in the inferior left temporal lobe with cortical thickening. 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 for seizures. compliance stressed. He use dto see DR. Berrios for Left temporla abnormality but lost follow up 4 years ago. urgent appointment with MRI Brain to evaluate left temporal abnormality EEG Brain activity due to seizure-like activity Headaches Patient Advised to follow up on Eye exam and keep a diary of #of headaches and times of onset along with triggers. NO DRIVING FOR 6 mths following a seizure.. Orders: Referrals Neurosurgery Referral R56.9 - Unspecified convulsions, R93.0 - Abnormal findings on diagnostic imaging of skull and head, not elsewhere classified Medications: New levetiracetam 500 mg PO BID 60 tabs 6RF Coding Level of Care Code New Pt Level 4 (23439) Complex EM visit Add On G2211 Diagnoses Witnessed seizure-like activity R56.9 Abnormal MRI of head R93.0 Low grade glioma of brain C71.9
[2024-01-18 12:47] VITALS: BP 120/78; PULSE 69; O2SAT 98; BMI 27.0
== END 2024-01-18 13:48 | disposition home or self-care (01) ==
LOC: HO.HSMS 12:33
PROVIDERS: PCP Internal Medicine; Visit Provider Psychiatry & Neurology Neurology
DX: R56.9 Unspecified convulsions (principal); R93.0 Abnormal findings on diagnostic imaging of skull and head, not elsewhere classified; C71.9 Malignant neoplasm of brain, unspecified
CPT/HCPCS: 99204; G2211

== ENCOUNTER → 2024-01-18 12:32 | Outpatient (BNVA) | payer OTHER, SELFPAY | PROVIDERS: PCP Internal Medicine; Visit Provider Psychiatry & Neurology Neurology | DX: R56.9 Unspecified convulsions (principal); R93.0 Abnormal findings on diagnostic imaging of skull and head, not elsewhere classified; C71.9 Malignant neoplasm of brain, unspecified | CPT/HCPCS: 99202 ==

== ENCOUNTER 2024-02-22 08:03 | Outpatient (REF) | payer OTHER, SELFPAY | END 2024-02-22 08:04 | disposition home or self-care (01) | LOC: HO.MRI 08:03 | PROVIDERS: PCP Internal Medicine; Visit Provider Psychiatry & Neurology Neurology | DX: G40.909 Epilepsy, unspecified, not intractable, without status epilepticus (principal) | CPT/HCPCS: 70551 ==

== ENCOUNTER 2024-02-26 15:41 | Emergency (ER) | payer OTHER, SELFPAY ==
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
--- NOTE | ~2024-02-26 | XR_ITS ---
EXAMINATION: XR LUMBOSACRAL SPINE CLINICAL INFORMATION: low back pain COMPARISON: None available. TECHNIQUE: Three views of the lumbosacral spine. FINDINGS: The vertebral bodies and posterior elements are normal. The disc spaces are preserved and the vertebral alignment is normal. The paraspinal soft tissues are normal. XR/XR lumbar spine 2-3V IMPRESSION: Unremarkable examination. Electronically signed by: Tamar Mendoza MD 02/26/2024 06:20 PM [facility]
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
[2024-02-26 15:46] VITALS: BP 136/92; PULSE 69; RESP 16; TEMP 36; O2SAT 100; BMI 27.2
[2024-02-26 18:39] VITALS: BP 136/92; PULSE 69; RESP 16; TEMP 36; O2SAT 100
== END 2024-02-26 18:39 | disposition home or self-care (01) ==
PROVIDERS: Emergency Provider Emergency Medicine; PCP Internal Medicine
DX: Z04.1 Encounter for examination and observation following transport accident (principal); M54.2 Cervicalgia; R51.9 Headache, unspecified
CPT/HCPCS: 70450; 72100; 72125; 99282; 99284

== ENCOUNTER 2024-02-29 17:49 | Emergency (ER) | payer OTHER, SELFPAY ==
--- NOTE | ~2024-02-29 | XR_ITS ---
EXAMINATION: XR HAND/WRIST, LEFT CLINICAL INFORMATION: wrist pain COMPARISON: Left hand and wrist radiographs March 17 TECHNIQUE: PA, lateral, and oblique views of the left hand and wrist. FINDINGS: The bones and soft tissues are normal. No fracture. Alignment is anatomic. Joint spaces are maintained. No erosions or soft tissue calcifications. XR/XR hand wrist LT IMPRESSION: Normal radiographs of the hand and wrist. Electronically signed by: Isaiah Orellana MD 02/29/2024 08:25 PM [facility]
[2024-02-29 18:12] VITALS: BP 181/94; PULSE 72; RESP 18; TEMP 36.5; O2SAT 100; BMI 26.8
--- NOTE | 2024-02-29 18:36 | ED.EXTPRO ---
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 He is right-hand dominant. He denies any precipitating injury. Denies any redness to the area or warmth. Denies associated fevers or chills. He expressed concern that he thought the area appeared green initially, states now that this has resolved. Denies any penetrating injury or IVDA. Related Data Previous Rx's ?Medication ?Instructions ?Recorded levetiracetam 500 mg tablet 500 mg PO BID #60 tabs 01/18/24 Allergies Allergy/AdvReac Type Severity Reaction Status Date / Time No Known Allergies Allergy Verified 02/29/24 18:17 Review of Systems Review of Systems: Yes all other systems are reviewed and are negative PMFSH Past Medical History Attestation statement: The following information was validated with the patient. Source: old records reviewed Medical History Abnormal MRI of head Vitamin D deficiency Diverticulosis Overweight (BMI 25.0-29.9) Potential exposure to STD Low grade glioma of brain Surgical History Hx of colonoscopy H/O circumcision Hx of appendectomy Family History Family History Mother No problems noted. Father No problems noted. 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 No acute distress.?Normal affect. CVS: Heart sounds normal. Normal heart rate and rhythm.? Pulses normal.?? Respiratory: No respiratory distress.? Lung sounds clear to auscultation bilaterally?? Abdomen: Soft and non-tender. Normoactive bowel sounds.?? Skin: Skin warm and dry.? Normal skin color.? Extremities: No extremity edema.? Left volar wrist with 1 cm mobile soft cyst without erythema, warmth, mild tenderness upon palpation. Full AROM to the left wrist. 2+ radial pulse. Neuro: Moves all extremities spontaneously. Sensation intact bilaterally. Course Course Course Narrative: RME: 48 yold female presents to the ED for left wrist pain. patient has lump on volar aspect of wrist that is tender. patient states no chest pain or neck pain. xray ordered Medical Decision Making Medical Decision Making MDM Narrative: Patient is a 48-year-old male who presents emergency department for evaluation of a painful lump to the left volar wrist as per HPI. Extremities neurovascularly intact distally. X-ray was obtained prior to my assumption of care and is without evidence of acute osseous abnormality. Clinical examination is consistent with a ganglion cyst, no overlying erythema or warmth to suggest cellulitis, abscess, or septic joint. Has full range of motion. Discussed conservative treatment, placed in a volar wrist splint to allow for rest and hopefully reabsorption. Advised outpatient follow-up with PCP. All questions answered. Stable for discharge Differential Diagnosis Differential Diagnoses: The differential diagnosis associated with the presentation includes (See narrative above) Independent Interpretation I performed an independent interpretation of an: Plain X-Ray (No fracture, no osseous abnormalities) Radiology Impression Discussion of test interpretation with radiology: I have reviewed the radiologist's reading. Radiologist Impression: XR/XR hand wrist LT IMPRESSION: Normal radiographs of the hand and wrist. External Record Review External record reviewed: Outpatient record Prescription Management I considered prescription management with: Pain Medication (Acetaminophen/ibuprofen) Procedures Orthopedic Splinting/Casting Injury #1: Side: left Upper Extremity Injury Location: wrist Upper Extremity Immobilizer: volar splint Discharge Plan Discharge Clinical Impression: Ganglion cyst Patient Disposition: Home, Self-Care Instructions: Ganglion Cysts (ED) Additional Instructions: X-ray today does not show evidence of acute fracture or changes to the bone. As mentioned, the lump that you have presented with his most consistent with a ganglion cyst which is a buildup of fluid beneath the skin. It is common that it happens to over this area of the wrist. You have been provided with a volar wrist splint that will keep from excessive movement of the wrist to allow the body to reabsorb this fluid and for to decrease in size. Please do not attempt to pop or drain this as this may result in worsening of symptoms. You may apply ice to the area for 10-15 minutes 3-4 times daily. You can take ibuprofen 200 mg, 3 tablets (600mg) every 6-8 hours as needed for pain, in addition to Tylenol 500 mg, 2 tablets (1,000mg) every 4-6 hours as needed for pain, but not to exceed 3 doses daily (3,000mg).? Please follow-up with your primary care doctor for persistent symptoms. Prescriptions: No Action levetiracetam 500 mg tablet 500 mg PO BID Qty: 60 6RF Referrals: Dio Oden MD [Primary Care Provider] - Interventions: ED Discharge Assessment Last Done: 02/29/24 21:09 Discharge Date/Time: 02/29/24 21:10 Print Language: Grenadian
[2024-02-29 20:51] VITALS: BP 125/75; PULSE 65; RESP 16; TEMP 36.6; O2SAT 100
[2024-02-29 21:09] VITALS: BP 125/75; PULSE 65; RESP 16; TEMP 36.6; O2SAT 100
== END 2024-02-29 21:10 | disposition home or self-care (01) ==
PROVIDERS: Emergency Provider Emergency Medicine; PCP Internal Medicine
DX: M67.432 Ganglion, left wrist (principal); M79.642 Pain in left hand; M25.532 Pain in left wrist
CPT/HCPCS: 29125; 73110; 73130; 99283; 99284

== ENCOUNTER 2024-05-04 10:24 | Outpatient (AMB) | payer OTHER, SELFPAY ==
[2024-05-04 10:27] VITALS: BP 122/78; PULSE 74; O2SAT 98; BMI 26.4
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
== END 2024-05-04 11:15 | disposition home or self-care (01) ==
PROVIDERS: PCP Internal Medicine
DX: R56.9 Unspecified convulsions (principal)

== ENCOUNTER → 2024-05-04 10:24 | Outpatient (BNVA) | payer OTHER, SELFPAY | PROVIDERS: PCP Internal Medicine | DX: R56.9 Unspecified convulsions (principal); C71.9 Malignant neoplasm of brain, unspecified | CPT/HCPCS: 96127; 99212 ==

== ENCOUNTER 2024-07-12 16:37 | Outpatient (AMB) | payer OTHER, SELFPAY ==
[2024-07-12 16:38] VITALS: BP 134/82; PULSE 81; O2SAT 98; BMI 26.2
--- NOTE | 2024-07-12 16:38 | MHC.PC.OV ---
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: No Accompanied by: Self / Same As Patient Allergies No Known Allergies Allergy (Verified 07/12/24 17:01) Medication List - Last Reconciled 07/12/24 by Dio Oden MD No Known Home Meds Tobacco use date assessed: 07/12/24 Dental Screening Dental Screen Date: 07/12/24 Did you have a dental visit in the last 12 months?: No Did you have a dental problem in the last 6 months where you did not have access to dental care?: No Was dental information given to patient?: No HPI pe HPI Details Patient comes in today for his annual physical examination States that he feels okay He denies any headaches or dizziness Denies any chest pains, no shortness of breath No nausea/vomiting, no abdominal pain No change in bowel habits noted He denies any acute urinary symptoms He was not able to get his previously ordered labs done yet - states that he will try to get these done NHI and would also like to have his STD testing included again with his labs He is up-to-date with his colon cancer screening - had his colonoscopy last done in January [address] Cullen and his next colonoscopy will not be due until 2032 [facility] Medical History Abnormal MRI of head Vitamin D deficiency Diverticulosis Overweight (BMI 25.0-29.9) Potential exposure to STD Low grade glioma of brain Surgical History (Updated 07/12/24 @ 17:03 by Dio Oden MD) Hx of colonoscopy H/O circumcision Hx of appendectomy Family History Mother No problems noted. Father No problems noted. Social History Housing: Apartment Alcohol intake: never Patient Tobacco Use Status: Never used Tobacco e-Cigarette/Vaping Use: Never Used Second Hand Smoke Exposure: Yes service: No Current occupational status: employed Current occupation: [employer] Cognitive needs: No Hearing needs: No Vision needs: No Questionnaire PHQ-9 Over the last 2 weeks, how often have you been bothered by any of the following problems? 1. Little interest or pleasure in doing things: nearly every day 2. Feeling down, depressed, or hopeless: not at all 3. Trouble falling or staying asleep, or sleeping too much: not at all 4. Feeling tired or having little energy: not at all 5. Poor appetite or overeating: not at all 6. Feeling bad about yourself - or that you are a failure or have let yourself or your family down: not at all 7. Trouble concentrating on things, such as reading the newspaper or watching television: not at all 8. Moving or speaking so slowly that other people could have noticed. Or the opposite - being so fidgety or restless that you have been moving around a lot more than usual: not at all 9. Thoughts that you would be better off or of hurting yourself in some way: not at all Total score: 3 Depression Screening Interpretation: Positive Depression Screening Follow-up: Community Mental Health Worker F/U Depression Screening Done: Yes 37482 - PHQ-9 Billing: Yes Source: Developed by Drs. Michael Kirkpatrick, Renée Ibarra, Javier Fan and colleagues, with an educational lucila from [employer]. Thrive Questionnaire Date Thrive assessed: 07/12/24 I am a: Patient What is your living situation today?: I have a steady place to live Within the past 12 months, did the food you bought not last and you didn't have the money to get more?: I choose not to answer this question Within the past 12 months, did you worry whether your food would run out before you got money to buy more?: I choose not to answer this question Do you have trouble paying for medicines?: No Do you have trouble getting transportation to medical appointments?: No Do you have trouble paying your heating and electricity bill?: No Do you have trouble taking care of your child, family member or friend?: No Do you have trouble with day-to-day activities such as bathing, preparing meals, shopping, managing finances, etc.?: No Are you currently unemployed and looking for a job?: I choose not to answer this question Are you interested in more education?: I choose not to answer this question Please select the resources that you would like help with: None Currently or been in a relationship where the following occur: I choose not to answer THRIVE Score: 0 AUDIT C Alcohol Use Questionnaire (AUDIT-C) 1. How often do you have a drink containing alcohol?: Never 3. How often do you have six or more drinks on one occasion?: Never Total Score: 0 Score Reviewed/Action Taken: Yes VALERIO-7 AMB Questionnaire VALERIO-7 Date VALERIO - 7 assessed: 07/12/24 Feeling nervous, anxious, or on edge: 0 = Not at all Not being able to stop or control worryin = Not at all Worrying too much about different things: 0 = Not at all Trouble relaxin = Not at all Being so restless that it is hard to sit still: 0 = Not at all Becoming easily annoyed or irritable: 0 = Not at all Feeling afraid as if something awful might happen: 0 = Not at all Total VALERIO-7 score (0-4 normal; 5-9 mild; 10-14 moderate; 15-21 severe): 0 Source: Developed by Drs. Michael Kirkpatrick, Renée Ibarra, Javier Fan and colleagues, with an educational lucila from [employer]. Review of Systems Const Denies chills, Denies fatigue, Denies fever(s), Denies headache(s), Denies malaise and Denies weakness Eyes Denies blurry vision, Denies change in vision, Denies irritation and Denies itchy eyes ENT Denies dysphagia, Denies dizziness, Denies otalgia, Denies headache(s), Denies nasal congestion, Denies neck pain, Denies odynophagia and Denies sore throat Card Denies chest pain, Denies rapid heart rate, Denies irregular heart rhythm, Denies palpitations and Denies dyspnea Resp Denies chest congestion, Denies cough, Denies dyspnea and Denies wheezing GI Denies abdominal pain, Denies bloating, Denies constipation, Denies dysphagia, Denies heartburn, Denies diarrhea, Denies nausea, Denies odynophagia and Denies vomiting Denies hematuria, Denies difficulty urinating, Denies dysuria, Denies urinary frequency and Denies urinary urgency Musc Denies back pain, Denies arthralgias, Denies joint swelling, Denies muscle weakness and Denies neck pain Skin/Breast Denies change in pigmentation, Denies lesions, Denies rash and Denies unusual bruising Neuro Denies dizziness, Denies headache(s), Denies paresthesias and Denies weakness Endo Denies fatigue and Denies palpitations Aller/Immun Denies itchy eyes and Denies wheezing Physical exam (Primary Care) Vital Signs: Last Vital Signs Pulse 81 07/12/24 16:38 BP 134/82 07/12/24 16:38 Pulse Ox 98 07/12/24 16:38 Oxygen Delivery Method Room Air 07/12/24 16:38 BMI result Body Mass Index 26.2 Tobacco/Smoking Status: Tobacco use Status Tobacco use date assessed 07/12/24 07/12/24 16:42 Patient Tobacco Use Status Never used Tobacco 07/12/24 16:42 e-Cigarette/Vaping Use Never Used 07/12/24 16:42 PHQ-9: PHQ-9 Score PHQ-9: Total score 3 07/12/24 17:04 Depression Screening Interpretation: Positive Depression Screening Follow-up: Community Mental Health Worker F/U Thrive Assessment: Date of Thrive Assessment Date Thrive assessed 07/12/24 07/12/24 16:42 Currently or been in a relationship where the following occur: I choose not to answer Const General: no acute distress, alert and awake Orientation/consciousness: patient oriented x3 HENMT Head: Yes normocephalic and Yes atraumatic Ears: external ears normal, TM's normal bilaterally and EAC's normal General nose exam: No nasal discharge present Face and sinus: Yes normal facial exam and Yes sinuses nontender Teeth and gingiva: dentition normal Throat: Yes posterior oropharynx normal and Yes tonsils normal (no TP congestion) Eyes Eyelids: Yes eyelids normal Conjunctivae: conjunctivae normal Pupils: Equal, round and reactive pupils present EOM: EOMs intact bilaterally Neck Neck: Yes no lymphadenopathy and Yes supple Thyroid: Thyroid normal Resp Auscultation: clear to auscultation bilaterally, no rales and no wheezes Cardio Rate: regular rate Rhythm: regular rhythm Heart sounds: no murmurs GI Palpation (GI): Soft to palpation, nontender and No hepatosplenomegaly present Auscultation: normal bowel sounds General: Yes no CVA tenderness Back/Spine/Pelvis Back: no CVA tenderness Thoracic/Lumbar Spine: thoracic and lumbar spine normal to inspection Skin Lesions: no lesions Rashes: no rashes Neuro General: patient oriented x3, moves all extremities, no focal motor deficits and CN's II-XI intact bilaterally Cranial nerves: Yes Equal, round and reactive pupils present Cognition (Neuro): normal cognition Gait exam (Neuro): Normal gait present Extrem General: Yes no clubbing, cyanosis or edema Coding Level of Care Code Est Pt Prev Care 40-64y(99139) Diagnoses Annual physical exam Z00.00 Witnessed seizure-like activity R56.9 Low grade glioma of brain C71.9 Vitamin D deficiency E55.9 Overweight (BMI 25.0-29.9) E66.3 Additional Codes PHQ-9 - 33549 - PHQ-9 Billing: Yes ([id number]) Assessment & Plan Assessment & Plan (1) Annual physical exam: Code(s): Z00.00 - Encounter for general adult medical examination without abnormal findings Category: Medical Plan: Patient is instructed to get his previously ordered labs done NHI Per request, will include STD testing with his labs He is up-to-date with his colon cancer screening - had his colonoscopy last done in January [address] Cullen and his next colonoscopy will not be due until 2032 (2) Witnessed seizure-like activity: Code(s): R56.9 - Unspecified convulsions Category: Medical Plan: Patient was brought to the ER by his girlfriend back on 07/14/2023 for possible seizures His girlfriend reportedly noticed that he was snoring loudly, shaking, and drooling earlier that morning and she was unable to wake patient up immediately States that after he did wake up, he appeared confused for a few minutes Work ups done in the ER, including labs, head CT, EKG and chest x-rays, all came out okay He will need further neurology evaluation, including an EEG, before he should resume driving again The patient was started on Keppra initially by Dr. Dang but the medication was discontinued by Dr. Humphries when he was seen for a second opinion - recalls that Dr. Humphries told him that he did not need the medication because his seizure occurred only once Patient was in retirement for a while and states that he was given Keppra to take while he was in assisted and he is worried about being on the medication for the amount of time that he was incarcerated He was encouraged to follow up again with neurology and was referred back to Dr. Humphries a couple of months ago (3) Low grade glioma of brain: Comment: MRI of the brain done back on 05/06/2016 showed a stable infiltrating non-enhancing, hyperintense lesion in the inferior left temporal lobe with cortical thickening. Findings are consistent with a low-grade glioma Code(s): C71.9 - Malignant neoplasm of brain, unspecified Category: Medical Plan: He was last seen by neurosurgery (Dr. Berrios) in 2014 and recommended to have follow up brain MRI every 2 to 3 years for continuing surveillance as patient appeared stable at the time Head CT back in September 2021 revealed no interval change compared to head CT in September 2020, with no evidence of midline shift or mass effect He had a head CT done at the ER in January 2023 when he presented with symptoms of increasing vertigo and again in June 2023 when he was brought to the ER for possible seizure - both head CTs done have showed NO changes from previous Will continue to monitor and observe patient regularly (4) Vitamin D deficiency: Code(s): E55.9 - Vitamin D deficiency, unspecified Category: Medical Plan: Continue Vitamin D3 1000 units QD (5) Overweight (BMI 25.0-29.9): Code(s): E66.3 - Overweight Category: Medical Plan: Reinforced diet/exercise as tolerated/lose weight Plan To return in 1 year for his next annual physical examination Orders: Orders CT NG by PCR 07/12/24 Z20.2 - Contact with and (suspected) exposure to infections with a predominantly sexual mode of transmission HIV Ab/Ag 07/13/24 Z20.2 - Contact with and (suspected) exposure to infections with a predominantly sexual mode of transmission Hepatitis B,C Profile 07/13/24 Z20.2 - Contact with and (suspected) exposure to infections with a predominantly sexual mode of transmission RPR Monitor reflex titer 07/13/24 Z20.2 - Contact with and (suspected) exposure to infections with a predominantly sexual mode of transmission
== END 2024-07-12 17:07 | disposition home or self-care (01) ==
LOC: HO.HMCH 16:37
PROVIDERS: PCP Internal Medicine; Visit Provider Internal Medicine
DX: Z00.00 Encounter for general adult medical examination without abnormal findings (principal); R56.9 Unspecified convulsions; C71.9 Malignant neoplasm of brain, unspecified; E55.9 Vitamin D deficiency, unspecified; E66.3 Overweight

== ENCOUNTER → 2024-07-12 16:37 | Outpatient (BNVA) | payer OTHER, SELFPAY | PROVIDERS: PCP Internal Medicine; Visit Provider Internal Medicine | DX: Z00.00 Encounter for general adult medical examination without abnormal findings (principal); R56.9 Unspecified convulsions; C71.9 Malignant neoplasm of brain, unspecified; E55.9 Vitamin D deficiency, unspecified; E66.3 Overweight; Z68.26 Body mass index [BMI] 26.0-26.9, adult | CPT/HCPCS: 96127; 99396 ==

== ENCOUNTER 2024-07-13 09:34 | Outpatient (REF) | payer OTHER, SELFPAY ==
[2024-07-13 10:03] LABS: MANUAL DIFF FLAG NO
[2024-07-13 10:47] LABS: Basophils Percent Auto 0.4 % (0-2); Eosinophils Percent Auto 0.5 % (0-4); Hematocrit 42.2 % (42.0-52.0); Hemoglobin 14.1 g/dl (14.0-18.0); Imm Gran Abs Auto 0.01 X10*3/uL (0.00-0.03); Imm Gran Pct Auto 0.2 % (0.0-0.4); Lymphocytes Absolute Auto 1.9 X10*3/uL (1.2-4.9); Lymphocytes Percent Auto 34.5 % (20-40); Mean Corpuscular HGB Conc 33.4 g/dl (31.0-36.0); Mean Corpuscular Hemoglobin 30.4 pg (27.0-33.0); Mean Corpuscular Volume 90.9 fL (80.0-98.0); Mean Platelet Volume 10.2 fL (9.4-12.4); Monocytes Absolute Auto 0.5 X10*3/uL (0.1-1.2); Monocytes Percent Auto 9.3 % (2-11); Neutrophils Percent Auto 55.1 % (45-73); Platelet Count 282 X10*3/uL (160-400); Red Blood Count 4.64 X10*6/uL (4.60-5.80); Red Cell Distribution Width 12.9 % (11.0-16.0); White Blood Count 5.5 X10*3/uL (4.8-10.8)
[2024-07-13 11:24] LABS: Appearance Urine Clear; Color Urine Yellow; Glucose Urine UA Negative (Negative); Leukocyte Esterase Urine Negative (Negative); Nitrite Urine Negative (Negative); Specific Gravity - Urine 1.025 (1.005-1.025); UMIC TRIGGER UACC YES; Urine Blood Small (1+) (Negative); Urine Ketones Trace mg/dL (Negative); Urine Protein Negative (Neg-Trace)
[2024-07-13 11:35] LABS: Alanine Aminotransferase 27 U/L (0-40); Albumin Level 4.5 g/dL (3.5-5.0); Alkaline Phosphatase 50 U/L (39-117); Anion Gap 9 (12-20); Aspartate Amino Transferase 20 U/L (5-37); Bilirubin Total 0.8 mg/dL (0.0-1.0); Blood Urea Nitrogen 17 mg/dL (9-16); Calcium 9.7 mg/dL (8.4-10.2); Carbon Dioxide 30 mmol/L (22-29); Chloride 104 mmol/L (96-108); Cholesterol 245 mg/dL (<200); Estimated Glomerular Filt Rate > 60; Glucose Fasting 81 mg/dL (60-99); HDL Cholesterol 106 mg/dL (>40); LDL Cholesterol Calculated 129 mg/dL (<100); Potassium 3.8 mmol/L (3.3-5.1); Sodium 139 mmol/L (135-145); Total Protein 7.9 g/dL (6.5-8.0); Triglycerides 50 mg/dL (<150)
[2024-07-13 11:37] LABS: TSH reflex Free T4 0.61 uIU/mL (0.32-4.0)
[2024-07-13 11:38] LABS: Prostate Specific Antigen Scr 0.78 ng/mL (<0.05-4.0)
[2024-07-13 11:48] LABS: HBc Num1 0.04 S/CO (0.00-0.79); HBsAGNum1 0.35 S/CO (0.00-0.99); HIV AB/AG Nonreactive (Nonreactive); HIV Num 1 0.08 S/CO (0.00-0.99); Hepatitis B Core Antibody Nonreactive (Nonreactive); Hepatitis B Surface Antigen Negative (Negative); ~HepC Num1 0.11 S/CO (0.00-0.79); ~Hepatitis B Surface Antibody REACTIVE (Nonreactive); ~Hepatitis C Antibody Nonreactive (Nonreactive)
[2024-07-13 11:49] LABS: Bacteria Urine None Seen (None Seen); Hyaline Casts Urine 0-2 /LPF (0-2); RBC Urine 0-2 /HPF (0-2); Squamous Epithelial Cell Urine 0-2 /HPF (0-2); WBC Urine 0-5 /HPF (0-5)
[2024-07-14 11:39] LABS: RPR Rapid Plasma Reagin NON-REACTIVE (NON-REACTIVE)
== END 2024-07-13 09:35 | disposition home or self-care (01) ==
LOC: HO.LAB 09:34
PROVIDERS: PCP Internal Medicine; Visit Provider Internal Medicine
DX: Z00.00 Encounter for general adult medical examination without abnormal findings (principal)
CPT/HCPCS: 36415; 80053; 80061; 81001; 82306; 84153; 84443; 85025; 86592; 86704; 86706; 86803; 87340; 87389

== ENCOUNTER 2024-08-17 12:58 | Outpatient (AMB) | payer OTHER, SELFPAY ==
--- NOTE | 2024-08-17 12:58 | AM.OFFWIN_ITS ---
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 Allergies No Known Allergies Allergy (Verified 08/17/24 13:01) Do you need a note to return to daycare/school/sports/work: Yes HPI HPI Comments History of Present Illness Details Patient is a 49yo M who presents to office with ST and congestion Ongoing since yesterdya He states while at work he felt throat hoarse No fever but subjective fatigue Pain in throatis moderate, worse yesterday Took OTC medicine which helped; Oscilloccinum homeopathic medicine Pound juice made worse + congestion noted Denies eat pain + cough with some phlegm + nausea without vomiting PFSH Medical History Abnormal MRI of head Vitamin D deficiency Diverticulosis Overweight (BMI 25.0-29.9) Potential exposure to STD Low grade glioma of brain Surgical History (Updated 07/12/24 @ 17:03 by Dio Oden MD) Hx of colonoscopy H/O circumcision Hx of appendectomy Family History Mother No problems noted. Father No problems noted. 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 [employer] Cognitive needs: No Hearing needs: No Vision needs: No Review of Systems Const Denies body aches, Denies chills, Reports fatigue and Denies fever(s) ENT Reports nasal congestion, Reports nasal discharge, Reports sore throat and Denies tongue swelling Card Denies chest pain, Denies syncope and Denies dyspnea Resp Reports cough and Denies dyspnea GI Reports nausea and Denies vomiting Neuro Denies syncope Endo Reports fatigue Aller/Immun Denies tongue swelling Physical Exam Vital Signs: Last Vital Signs Temp 98.8 F 08/17/24 13:03 Pulse 95 08/17/24 13:03 Resp 16 08/17/24 13:03 BP 122/80 08/17/24 13:03 Pulse Ox 98 08/17/24 13:03 Oxygen Delivery Method Room Air 08/17/24 13:03 BMI result Body Mass Index 26.2 General: Non-toxic, NAD. Speaking full sentences. Skin: Warm dry throughout Eye: EOMI HENT: Airway patent. Uvula midline. + pharyngeal erythema without exudates or edema. No COMPENSATION/BENEFITS SPECIALIST. Bilateral canals clear with minimal ceruumen bilareally. TM non-erythematous, non-bulging. No TM perforation or hemotympanum noted. Lymph: Slight cervical lymphadenopathy with minimal ttp. Respiratory: CTA bilaterally. No wheezes, rales or rhonchi Cardiac: RRR. No murmur MSK: Full ROM extremities. Neurology: Alert. No aphasia or facial droop. Gait without abnormality Psych: Good mood and affect Assessment & Plan Assessment & Plan (1) Viral upper respiratory illness: Code(s): J06.9 - Acute upper respiratory infection, unspecified Plan: Patient seen and evaluated. Strep negative No COMPENSATION/BENEFITS SPECIALIST on exam and lungs CTA Tessalon for cough COVID/flu/RSV swab ordered and obtained F/U with PCP Patient gave verbal understanding and had no additional questions or concerns at time of discharge All questions answered Orders: Orders SARS-CoV2/FLU/RSV Today J06.9 - Acute upper respiratory infection, unspecified Medications: New benzonatate 100 mg PO BID-TID PRN 14 caps 0RF cough Coding Level of Care Code Est Pt Level 3 (04806) Diagnoses Viral upper respiratory illness J06.9
[2024-08-17 13:03] VITALS: BP 122/80; PULSE 95; RESP 16; TEMP 37.1; O2SAT 98; BMI 26.2
== END 2024-08-17 13:28 | disposition home or self-care (01) ==
PROVIDERS: PCP Internal Medicine; Visit Provider Physician Assistant
DX: J06.9 Acute upper respiratory infection, unspecified (principal)

== ENCOUNTER 2024-08-17 12:58 | Outpatient (REF) | payer SELFPAY ==
[2024-08-17 17:37] LABS: Influenza A PCR NEGATIVE (Negative); Influenza B PCR NEGATIVE (Negative); Resp Syncy Virus RNA Qual PCR NEGATIVE (Negative); SARS COV2 PCR INHOUSE NEGATIVE (Negative)
== END 2024-08-17 12:59 | disposition home or self-care (01) ==
LOC: HO.LNP 12:58
PROVIDERS: PCP Internal Medicine; Visit Provider Physician Assistant
DX: J06.9 Acute upper respiratory infection, unspecified (principal)
CPT/HCPCS: 0241U; 87880; 99212

== ENCOUNTER 2024-08-20 17:12 | Emergency (ER) | payer OTHER, SELFPAY ==
--- NOTE | ~2024-08-20 | XR_ITS ---
CLINICAL HISTORY: ams 1 view chest x-ray. Comparison: None Findings: No consolidation. Heart size normal. No acute fracture. Impression: Lungs are clear. This document has been electronically signed by: Nato Johnson MD on 08/20/2024 18:11:59
[2024-08-20 17:28] VITALS: BP 176/92; PULSE 67; RESP 18; TEMP 36.4; O2SAT 100; BMI 26.5
[2024-08-20 17:36] VITALS: BP 149/84; PULSE 67; RESP 22; O2SAT 100
--- NOTE | 2024-08-20 17:39 | ECG_ITS ---
Test Reason : UNRESPONSIVE Blood Pressure : */* mmHG Vent. Rate : 75 BPM Atrial Rate : 75 BPM P-R Int : 140 ms QRS Dur : 86 ms QT Int : 380 ms P-R-T Axes : 80 34 41 degrees QTcB Int : 424 ms Normal sinus rhythm Normal ECG When compared with ECG of 14-Jul-2023 06:41, No significant change was found Referred By: Lucy Booth Electronically Signed By: RENUKA ALLEN MD
[2024-08-20 17:43] LABS: MANUAL DIFF FLAG NO
[2024-08-20 17:44] LABS: Basophils Percent Auto 0.3 % (0-2); Eosinophils Absolute Auto 0.1 X10*3/uL (0.0-0.4); Eosinophils Percent Auto 1.1 % (0-4); Hematocrit 42.4 % (42.0-52.0); Hemoglobin 14.5 g/dl (14.0-18.0); Imm Gran Abs Auto 0.01 X10*3/uL (0.00-0.03); Imm Gran Pct Auto 0.2 % (0.0-0.4); Lymphocytes Absolute Auto 2.6 X10*3/uL (1.2-4.9); Lymphocytes Percent Auto 39.7 % (20-40); Mean Corpuscular HGB Conc 34.2 g/dl (31.0-36.0); Mean Corpuscular Hemoglobin 30.5 pg (27.0-33.0); Mean Corpuscular Volume 89.1 fL (80.0-98.0); Mean Platelet Volume 9.8 fL (9.4-12.4); Monocytes Absolute Auto 0.5 X10*3/uL (0.1-1.2); Monocytes Percent Auto 8.1 % (2-11); Neutrophils Absolute Auto 3.3 x10*3/uL (2.0-8.3); Neutrophils Percent Auto 50.6 % (45-73); Platelet Count 261 X10*3/uL (160-400); Red Blood Count 4.76 X10*6/uL (4.60-5.80); Red Cell Distribution Width 12.8 % (11.0-16.0); White Blood Count 6.4 X10*3/uL (4.8-10.8)
[2024-08-20 17:45] LABS: INTERNATIONAL NORM RATIO 0.9 (0.9-1.1); Prothrombin Time 10.7 SEC (10.9-12.4)
[2024-08-20 17:55] LABS: Alanine Aminotransferase 24 U/L (0-40); Albumin Level 4.6 g/dL (3.5-5.0); Alkaline Phosphatase 62 U/L (39-117); Anion Gap 14 (12-20); Aspartate Amino Transferase 21 U/L (5-37); Bilirubin Direct 0.2 mg/dL (0.0-0.5); Bilirubin Total 0.5 mg/dL (0.0-1.0); Blood Urea Nitrogen 16 mg/dL (9-16); Calcium 9.9 mg/dL (8.4-10.2); Carbon Dioxide 24 mmol/L (22-29); Chloride 106 mmol/L (96-108); Creatinine Clr Calc Pharmacy 85.7; Estimated Glomerular Filt Rate > 60; Glucose Random 87 mg/dL (60-115); Potassium 3.8 mmol/L (3.3-5.1); Sodium 140 mmol/L (135-145)
[2024-08-20 17:57] LABS: Ethanol < 10 mg/dL
--- NOTE | 2024-08-20 17:57 | PC.NURSE ---
Pt comes to ED today as a walk in for c/o VILLA. 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 Pt transported to ED5 via stretcher. Bilat IV access obtained, blood labs and lactic drawn. Pt intermittently speaking with staff complaining of headache. Pts significant other arrives and reports Pt has been complaining of VILLA and feeling ill all day. She is unclear if Pt is compliant with his medications or not (Herve.) VSS Awaiting ED provider
--- NOTE | 2024-08-20 18:22 | ED.GENADULT ---
HPI - General Adult General Chief complaint: Headache Stated complaint: dizzy/pain in the brain/stage 2 cancer? 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 The patient states he feels fatigued. He has no vision changes or numbness or weakness of his arms or legs. He denies chest pain, difficulty breathing, abdominal pain, vomiting or diarrhea. He states he does have headaches frequently. He has not recently follow up with his neurologist. Related Data Home Medications ?Medication ?Instructions ?Recorded ?Confirmed levetiracetam 500 mg tablet 500 mg PO BID 08/17/24 Previous Rx's ?Medication ?Instructions ?Recorded benzonatate 100 mg capsule 100 mg PO BID-TID PRN cough #14 08/17/24 caps Allergies Allergy/AdvReac Type Severity Reaction Status Date / Time No Known Allergies Allergy Verified 08/20/24 17:32 Review of Systems Review of Systems: Yes all other systems are reviewed and are negative PMFSH Past Medical History Medical History Abnormal MRI of head Vitamin D deficiency Diverticulosis Overweight (BMI 25.0-29.9) Potential exposure to STD Low grade glioma of brain Surgical History (Updated 07/12/24 @ 17:03 by Dio Oden MD) Hx of colonoscopy H/O circumcision Hx of appendectomy Family History Family History Mother No problems noted. Father No problems noted. 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 Moist mucous membranes Eyes: PERRL, EOMI Neck: Supple, nontender Chest: No chest wall tenderness Respiratory: Lungs clear to auscultation, no increased work of breathing Cardio: Regular rate and rhythm, no murmur, 2+ radial and DP pulses symmetrically GI: Soft, nondistended, nontender Back: Normal range of motion, nontender Skin: No rash, no lesions Neuro: Mental Status: Patient is alert, attentive, and fully oriented Speech: Clear and fluent CN II: Visual zaman are full, pupils are equal and briskly reactive to light CN III, IV, : Extra ocular motions are intact in all directions. No ptosis. CN V: Facial sensation intact, both upper and lower face CN VII: Symmetric facial movements CN VIII: Hearing is grossly normal CN IX, X: Symmetric elevation of palate, normal phonation CN XI: Shoulder shrug 5/5 strength bilaterally CN XII: Tongue protrudes midline Motor: No pronator drift bilaterally. 5/5 strength all 4 extremities. Normal muscle bulk and tone. Sensory: Sensation intact all 4 extremities to light touch without reported paresthesias. Coordination: No dysmetria on finger to nose bilaterally. No truncal ataxia noted. Extremities: No swelling or tenderness, full range of motion Psych: Calm, alert and cooperative, appropriate behavior Medical Decision Making Medical Decision Making MDM Narrative: Upon arrival, the patient keeps his eyes closed, appears fatigued, reporting head pain and dizziness. On reassessment this completely resolved and the patient follows all commands, has benign neurologic exam and unremarkable workup today including labs, tox screen, and ECG. He is able to ambulate without assistance and has no gait abnormalities. I have no concern today for subarachnoid hemorrhage, meningitis, epileptic seizure or any other dangerous etiology to the patient's symptoms. Imaging is not warranted at this time. patient has not required any analgesics. The patient is encouraged to follow up with his neurologist. Admission/Observation Consideration of admission/observation: Escalation of care including admission/observation considered Lab Data MDM Lab Attestation statement: I reviewed the patient's lab results. 08/20/24 17:25 08/20/24 17:25 Labs: Lab Results 08/20/24 08/20/24 Range/Units 17:25 17:53 WBC 6.4 (4.8-10.8) X10*3/uL RBC 4.76 (4.60-5.80) X10*6/uL Hgb 14.5 (14.0-18.0) g/dl Hct 42.4 (42.0-52.0) % MCV 89.1 (80.0-98.0) fL MCH 30.5 (27.0-33.0) pg MCHC 34.2 (31.0-36.0) g/dl RDW 12.8 (11.0-16.0) % Plt Count 261 (160-400) X10*3/uL MPV 9.8 (9.4-12.4) fL Immature Gran % (Auto) 0.2 (0.0-0.4) % Neut % (Auto) 50.6 (45-73) % Lymph % (Auto) 39.7 (20-40) % [place] % (Auto) 8.1 (2-11) % Eos % (Auto) 1.1 (0-4) % Baso % (Auto) 0.3 (0-2) % Lymph # (Auto) 2.6 (1.2-4.9) X10*3/uL [place] # (Auto) 0.5 (0.1-1.2) X10*3/uL Eos # (Auto) 0.1 (0.0-0.4) X10*3/uL Baso # (Auto) 0.0 (0.0-0.2) X10*3/uL Abs Immat Gran (auto) 0.01 (0.00-0.03) X10*3/uL Absolute Neuts (auto) 3.3 (2.0-8.3) x10*3/uL Absolute Nucleated RBC 0.000 (0.0-0.012) X10*3/uL Nucleated RBC % (auto) 0.0 (0.0-0.2) /100WBC Hold Purple Top SEE NOTE PT 10.7 L (10.9-12.4) SEC INR 0.9 (0.9-1.1) Hold Blue Top SEE NOTE Sodium 140 (135-145) mmol/L Potassium 3.8 (3.3-5.1) mmol/L Chloride 106 (96-108) mmol/L Carbon Dioxide 24 (22-29) mmol/L Anion Gap 14 (12-20) BUN 16 (9-16) mg/dL Creatinine 0.93 (0.5-1.4) mg/dL Estim Creat Clear Calc 85.7 Estimated GFR > 60 Random Glucose 87 (60-115) mg/dL Lactic Acid 1.0 (0.5-2.0) mmol/L Calcium 9.9 (8.4-10.2) mg/dL Magnesium 2.0 (1.6-2.6) mg/dL Total Bilirubin 0.5 (0.0-1.0) mg/dL Direct Bilirubin 0.2 (0.0-0.5) mg/dL AST 21 (5-37) U/L ALT 24 (0-40) U/L Alkaline Phosphatase 62 (39-117) U/L Total Protein 8.0 (6.5-8.0) g/dL Albumin 4.6 (3.5-5.0) g/dL Hold Green Top See Note Ethyl Alcohol < 10 mg/dL Influenza Type A (PCR) NEGATIVE (Negative) Influenza Type B (PCR) NEGATIVE (Negative) RSV RNA Qual (PCR) NEGATIVE (Negative) SARS-CoV-2 RNA (RT-PCR) NEGATIVE (Negative) Independent Interpretation I performed an independent interpretation of an: EKG and Plain X-Ray ( Chest x-ray per my independent interpretation shows no acute cardiopulmonary abnormalities.) Interpretation: Sinus rhythm at 75 beats per minute, normal axis, unremarkable intervals, no diagnostic ST or T-wave abnormalities, compared to prior dated 07/14/2023, there are no significant changes. Discharge Plan Discharge Clinical Impression: Headache, Dizziness Patient Disposition: Home, Self-Care Instructions: Dizziness (ED), Acute Headache (ED) Additional Instructions: Please return if you have a severe, sudden onset headache, recurrent dizziness, passing out episodes, seizure activity or any new changes or concerns neurologist. Prescriptions: No Action levetiracetam 500 mg tablet 500 mg PO BID benzonatate 100 mg capsule 100 mg PO BID-TID PRN (Reason: cough) Qty: 14 0RF Referrals: [facility] [place]] ( History of seizures, has not followed up with Neurology recently) Stand Alone Forms: Work/School Release Print Language: Prydeinig
[2024-08-20 18:40] LABS: Influenza A PCR NEGATIVE (Negative); Influenza B PCR NEGATIVE (Negative); Resp Syncy Virus RNA Qual PCR NEGATIVE (Negative); SARS COV2 PCR INHOUSE NEGATIVE (Negative)
[2024-08-20 19:28] VITALS: BP 149/84; PULSE 67; RESP 22; TEMP 36.6; O2SAT 100
[2024-08-22 09:31] LABS: Glucose, Whole Blood 93 mg/dL (60-115)
== END 2024-08-20 19:29 | disposition home or self-care (01) ==
PROVIDERS: Physician Assistant; Emergency Provider Emergency Medicine; PCP Internal Medicine
DX: R42 Dizziness and giddiness (principal); R51.9 Headache, unspecified; Z03.818 Encounter for observation for suspected exposure to other biological agents ruled out
CPT/HCPCS: 0241U; 71045; 80048; 80076; 80307; 82947; 83605; 83735; 85025; 85610; 93005; 99284

== ENCOUNTER → 2024-08-20 17:39 | Outpatient (BNV) | payer OTHER, SELFPAY | PROVIDERS: Emergency Provider Emergency Medicine; PCP Internal Medicine; Visit Provider Internal Medicine Cardiovascular Disease | DX: R46.4 Slowness and poor responsiveness (principal) | CPT/HCPCS: 93010 ==

== ENCOUNTER → 2024-08-20 17:39 | Outpatient (BNV) | payer OTHER, SELFPAY | PROVIDERS: Emergency Provider Emergency Medicine; PCP Internal Medicine; Visit Provider Radiology Diagnostic Radiology | DX: R41.82 Altered mental status, unspecified (principal) | CPT/HCPCS: 71045 ==

== ENCOUNTER 2024-09-21 13:51 | Outpatient (AMB) | payer OTHER, SELFPAY ==
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
== END 2024-09-21 14:13 | disposition home or self-care (01) ==
LOC: HO.HSM 13:51
PROVIDERS: Family Provider Internal Medicine; PCP Internal Medicine; Visit Provider Registered Nurse
DX: R56.9 Unspecified convulsions (principal)
CPT/HCPCS: 99213

== ENCOUNTER → 2024-09-21 13:51 | Outpatient (BNVA) | payer OTHER, SELFPAY | PROVIDERS: Family Provider Internal Medicine; PCP Internal Medicine; Visit Provider Registered Nurse | DX: R56.9 Unspecified convulsions (principal) | CPT/HCPCS: 99212 ==

== ENCOUNTER 2024-10-08 03:44 | Emergency (ER) | payer OTHER, SELFPAY ==
--- NOTE | 2024-10-08 | ECG_ITS ---
Test Reason : SEIZURE Blood Pressure : */* mmHG Vent. Rate : 82 BPM Atrial Rate : 82 BPM P-R Int : 152 ms QRS Dur : 86 ms QT Int : 370 ms P-R-T Axes : 67 15 35 degrees QTcB Int : 432 ms Normal sinus rhythm Normal ECG When compared with ECG of 20-Aug-2024 17:21, T wave amplitude has decreased in Lateral leads Referred By: Generic ED Physician Electronically Signed By: ELDA POSADA
[2024-10-08 03:48] VITALS: BP 136/70; PULSE 98; O2SAT 96
[2024-10-08 03:56] VITALS: BP 122/83; PULSE 75; RESP 15; TEMP 36.3; O2SAT 97; BMI 26.1
[2024-10-08 04:18] LABS: MANUAL DIFF FLAG NO
[2024-10-08 04:19] LABS: Hematocrit 35.8 % (42.0-52.0); Hemoglobin 12.2 g/dl (14.0-18.0); Imm Gran Abs Auto 0.01 X10*3/uL (0.00-0.03); Imm Gran Pct Auto 0.2 % (0.0-0.4); Lymphocytes Absolute Auto 1.9 X10*3/uL (1.2-4.9); Mean Corpuscular HGB Conc 34.1 g/dl (31.0-36.0); Mean Corpuscular Hemoglobin 30.2 pg (27.0-33.0); Mean Corpuscular Volume 88.6 fL (80.0-98.0); NRBC Abs Auto 0.000 X10*3/uL (0.0-0.012); NRBC Pct Auto 0.0 /100WBC (0.0-0.2); Platelet Count 240 X10*3/uL (160-400); Red Blood Count 4.04 X10*6/uL (4.60-5.80); White Blood Count 6.3 X10*3/uL (4.8-10.8)
[2024-10-08 04:39] LABS: Alanine Aminotransferase 19 U/L (0-40); Albumin Level 3.8 g/dL (3.5-5.0); Alkaline Phosphatase 50 U/L (39-117); Anion Gap 13 (12-20); Aspartate Amino Transferase 24 U/L (5-37); Blood Urea Nitrogen 14 mg/dL (9-16); Calcium 8.4 mg/dL (8.4-10.2); Carbon Dioxide 19 mmol/L (22-29); Chloride 110 mmol/L (96-108); Creatinine Clr Calc Pharmacy 91.8; Estimated Glomerular Filt Rate > 60; Magnesium 2.0 mg/dL (1.6-2.6); Potassium 3.9 mmol/L (3.3-5.1); Sodium 138 mmol/L (135-145); Total Protein 6.9 g/dL (6.5-8.0)
[2024-10-08 04:42] LABS: Cannabinoid Screen Urine Not Detected (Not Detect)
--- NOTE | 2024-10-08 04:46 | ED_ITS ---
HPI - Seizure General Chief Complaint: Seizure Stated Complaint: SEIZURE Time Seen by Provider: 10/08/24 04:45 Source: patient Mode of arrival: ambulatory Limitations: no limitations History of Present Illness ED Provider: HPI Narrative: Patient's history of generalized tonic-clonic seizure noncompliant on his medication last seizure was years ago does work long shifts and does not get sleep more than few hours comes here as family noticed that patient is having seizure episode tonic-clonic with frothing from the mouth while he is in the bed no injury or tongue bite no alcohol use no any substance abuse patient was postictal initially no more awake Related Data Home Medications ?Medication ?Instructions ?Recorded ?Confirmed levetiracetam 500 mg tablet 500 mg PO BID 08/17/2405/17 Previous Rx's ?Medication ?Instructions ?Recorded levetiracetam 500 mg tablet 500 mg PO BID 90 days #180 tabs 09/21/24 levetiracetam 500 mg tablet 500 mg PO BID #180 tabs (Keppra) Allergies Allergy/AdvReac Type Severity Reaction Status Date / Time No Known Allergies Allergy Verified 10/08/24 03:58 Review of Systems 2 Review of Systems: Yes all other systems are reviewed and are negative PMFSH Past Medical History Medical History Seizure Headache Abnormal MRI of head Vitamin D deficiency Diverticulosis Overweight (BMI 25.0-29.9) Potential exposure to STD Low grade glioma of brain Surgical History Hx of colonoscopy H/O circumcision Hx of appendectomy Family History Family History Mother No problems noted. Father No problems noted. 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 Oriented X3. No acute distress. Eyes: PERRLA, No Nystagmus ENT: Pharynx normal. Oral Mucosa moist Neck: Normal inspection. Neck supple. CVS: Normal heart rate and rhythm. Pulses normal. Respiratory: No respiratory distress. Equal air entry bilateral, no wheezing/rales/rhonchi Abdomen: Soft and nontender. Bowel sounds are present, no mass palpable, no CVA tenderness Skin: Skin warm and dry. Normal skin color. Normal skin turgor. Extremities: No lower extremity edema. No calf tenderness Neuro: Oriented X 3. No motor deficit. No sensory deficit.No cerebellar signs , cranial nerves II-XII intact Medications Administered Discontinued Medications Generic Name Dose Route Start Last Admin Trade Name Freq PRN Reason Stop Dose Admin Sodium Chloride 1,000 mls @ 999 mls/hr 10/08/24 04:55 10/08/24 06:04 Ns IV 10/08/24 05:55 Infused .Q1H1M ONE Infusion Levetiracetam 1,000 mg in 100 mls @ 400 mls/hr 10/08/24 04:55 10/08/24 05:18 Keppra IV 10/08/24 05:09 Infused ONCE ONE Infusion Ondansetron HCl 4 mg 10/08/24 04:38 10/08/24 04:46 Ondansetron Hcl 4 Mg/2 Ml Vial IVPUSH 10/08/24 04:39 4 mg ONCE ONE Administration Medical Decision Making Medical Decision Making [facility] Narrative: Patient with did not have tonic-clonic seizure for years not taking his medication noncompliant came with 1-2 minutes seizure episode and post ictal , patient was confused had a seizure. No alcohol no drug use will discharge patient will not on prescription Herve advised to follow up with neurologist and take the medication on time regularly Lab Data MDM Lab Attestation statement: I reviewed the patient's lab results. 10/08/24 04:14 10/08/24 04:14 Labs: Lab Results 10/08/24 10/08/24 Range/Units 04:14 04:20 WBC 6.3 (4.8-10.8) X10*3/uL RBC 4.04 L (4.60-5.80) X10*6/uL Hgb 12.2 L (14.0-18.0) g/dl Hct 35.8 L (42.0-52.0) % MCV 88.6 (80.0-98.0) fL MCH 30.2 (27.0-33.0) pg MCHC 34.1 (31.0-36.0) g/dl RDW 13.2 (11.0-16.0) % Plt Count 240 (160-400) X10*3/uL MPV 9.8 (9.4-12.4) fL Immature Gran % (Auto) 0.2 (0.0-0.4) % Neut % (Auto) 62.5 (45-73) % Lymph % (Auto) 29.9 (20-40) % [place] % (Auto) 6.5 (2-11) % Eos % (Auto) 0.6 (0-4) % Baso % (Auto) 0.3 (0-2) % Lymph # (Auto) 1.9 (1.2-4.9) X10*3/uL [place] # (Auto) 0.4 (0.1-1.2) X10*3/uL Eos # (Auto) 0.0 (0.0-0.4) X10*3/uL Baso # (Auto) 0.0 (0.0-0.2) X10*3/uL Abs Immat Gran (auto) 0.01 (0.00-0.03) X10*3/uL Absolute Neuts (auto) 3.9 (2.0-8.3) x10*3/uL Absolute Nucleated RBC 0.000 (0.0-0.012) X10*3/uL Nucleated RBC % (auto) 0.0 (0.0-0.2) /100WBC Sodium 138 (135-145) mmol/L Potassium 3.9 (3.3-5.1) mmol/L Chloride 110 H (96-108) mmol/L Carbon Dioxide 19 L (22-29) mmol/L Anion Gap 13 (12-20) BUN 14 (9-16) mg/dL Creatinine 0.90 (0.5-1.4) mg/dL Estim Creat Clear Calc 91.8 Estimated GFR > 60 Random Glucose 118 H (60-115) mg/dL Calcium 8.4 D (8.4-10.2) mg/dL Magnesium 2.0 (1.6-2.6) mg/dL Total Bilirubin 0.4 (0.0-1.0) mg/dL AST 24 (5-37) U/L ALT 19 (0-40) U/L Alkaline Phosphatase 50 (39-117) U/L Total Protein 6.9 (6.5-8.0) g/dL Albumin 3.8 (3.5-5.0) g/dL Urine Color Yellow Urine Appearance Clear Urine pH 5.5 (5.0-9.0) Ur Specific [place] 1.015 (1.005-1.025) Urine Protein Negative (Neg-Trace) mg/dL Urine Glucose (UA) Negative (Negative) mg/dL Urine Ketones Negative (Negative) mg/dL Urine Blood Trace H (Negative) Urine Nitrite Negative (Negative) Ur Leukocyte Esterase Negative (Negative) Urine RBC 0-2 (0-2) /HPF Urine WBC 0-5 (0-5) /HPF Ur Squamous Epith Cells 0-2 (0-2) /HPF Urine Bacteria None Seen (None Seen) Hyaline Casts 0-2 (0-2) /LPF Urine Opiates Screen Not Detected (Not Detect) Ur Buprenorphine Scrn Not Detected (Not Detect) ng/mL Ur Oxycodone Screen Not Detected (Not Detect) ng/mL Urine Methadone Screen Not Detected (Not Detect) ng/mL Urine Fentanyl Screen Not Detected (Not Detect) Ur Barbiturates Screen Not Detected (Not Detect) Ur Phencyclidine Scrn Not Detected (Not Detect) Ur Amphetamines Screen Not Detected (Not Detect) U Benzodiazepines Scrn Not Detected (Not Detect) Urine Cocaine Screen Not Detected (Not Detect) U Marijuana (THC) Screen Not Detected (Not Detect) Ethyl Alcohol < 10 mg/dL Discharge Plan Discharge Clinical Impression: Epileptic seizure Patient Disposition: Home, Self-Care Instructions: Epilepsy (ED) Additional Instructions: Sleep at least 6-8 hours Take your Keppra as prescribed by your PCP Follow up with your neurologist Prescriptions: New levetiracetam [Keppra] 500 mg tablet 500 mg PO BID Qty: 180 2RF No Action levetiracetam 500 mg tablet 500 mg PO BID levetiracetam 500 mg tablet 500 mg PO BID 90 Days Qty: 180 1RF Stand Alone Forms: Work/School Release Print Language: Swiss
[2024-10-08 04:47] LABS: Appearance Urine Clear; Glucose Urine UA Negative (Negative); PH 5.5 (5.0-9.0); Specific Gravity - Urine 1.015 (1.005-1.025); UMIC TRIGGER UACC YES
[2024-10-08] MEDS: levETIRAcetam in NaCl (iso-os) 1,000 MG/100 ML PIGGYBACK 400 MG IV (05:03)
[2024-10-08 06:58] VITALS: BP 119/78; PULSE 69; RESP 18; TEMP 36.3; O2SAT 97
[2024-10-08 07:03] VITALS: BP 119/78; PULSE 69; RESP 18; TEMP 36.3; O2SAT 97
== END 2024-10-08 07:21 | disposition home or self-care (01) ==
PROVIDERS: Emergency Provider Internal Medicine; PCP Internal Medicine
DX: G40.909 Epilepsy, unspecified, not intractable, without status epilepticus (principal); Z91.148 Patient's other noncompliance with medication regimen for other reason
CPT/HCPCS: 36415; 80053; 80307; 81001; 83735; 85025; 93005; 96361; 96374; 96375; 99284; 99285; J1953; J2405

== ENCOUNTER → 2024-10-08 03:57 | Outpatient (BNV) | payer OTHER, SELFPAY | PROVIDERS: Emergency Provider Internal Medicine; PCP Internal Medicine; Visit Provider Internal Medicine | DX: R56.9 Unspecified convulsions (principal) | CPT/HCPCS: 93010 ==

== ENCOUNTER 2024-10-10 08:02 | Emergency (ER) | payer OTHER, SELFPAY ==
[2024-10-10 08:17] VITALS: BP 150/75; PULSE 78; RESP 20; TEMP 36.6; BMI 25.8
--- NOTE | 2024-10-10 08:27 | PC.NURSE ---
Pt reporting he went to have a BM this morning, while wiping he felt a lump externally. No blood noted on stool or toilet, pt denies straining with BM or history of hemorrhoids. Pt getting changed over right now, awaiting ED provider at this time. Pt is very anxious and embarrassed at this time. Emotional support provided.
--- NOTE | 2024-10-10 08:52 | ED.GENADULT ---
HPI - General Adult General Chief complaint: General Medical Stated complaint: possible Hemorrhoid Time Seen by Provider: 10/10/24 08:51 Source: patient and RN notes reviewed Mode of arrival: ambulatory Limitations: no limitations History of Present Illness ED Provider: Maria Esther Gandhi PA-C HPI narrative: This is a 49-year-old male, with a history of tonic-clonic seizures noncompliant on medications, who presents emergency department with concerns of possible hemorrhoid. Patient states that over the last couple of days he has noticed pain around his rectum, states that he noticed this morning a bulging area. He applied preparation H multiple times without much relief. Denies history of similar symptoms in the past. No recent constipation. No fevers or chills. No other symptoms. No other complaints or concerns at this time. MD complaint: Hemorrhoids Relieving factors: none Exacerbating factors: none Associated symptoms: denies other symptoms Related Data Home Medications ?Medication ?Instructions ?Recorded ?Confirmed levetiracetam 500 mg tablet 500 mg PO BID 08/17/24 09/21/24 Previous Rx's ?Medication ?Instructions ?Recorded levetiracetam 500 mg tablet 500 mg PO BID 90 days #180 tabs 09/21/24 levetiracetam 500 mg tablet 500 mg PO BID #180 tabs 10/08/24 (Keppra) acetaminophen 500 mg tablet 500 - 1,000 mg (1 - 2 x 500 mg) PO 10/10/24 (Tylenol Extra Strength) Q6H PRN fever or pain #30 tabs hydrocortisone 2.5 % topical cream 1 appl ND Q6-8H PRN hemorrhoids 10/10/24 with perineal applicator #30 grams (Anusol-HC) ibuprofen 600 mg tablet 600 mg PO Q6H PRN pain #30 tabs 10/10/24 Allergies Allergy/AdvReac Type Severity Reaction Status Date / Time No Known Allergies Allergy Verified 10/10/24 08:18 Review of Systems Review of Systems: Yes all other systems are reviewed and are negative Constitutional: Constitutional: Reports as per [facility] Past Medical History Attestation statement: The following information was validated with the patient. Medical History Seizure Headache Abnormal MRI of head Vitamin D deficiency Diverticulosis Overweight (BMI 25.0-29.9) Potential exposure to STD Low grade glioma of brain Surgical History Hx of colonoscopy H/O circumcision Hx of appendectomy Family History Family History Mother No problems noted. Father No problems noted. Social History Social History Housing: Apartment Unable to assess alcohol history related to: Unknown Alcohol intake: never Patient Tobacco Use Status: Never used Tobacco e-Cigarette/Vaping Use: Never Used Second Hand Smoke Exposure: Yes Use of substances other than those prescribed or required for medical reasons: No Advance Directives: No Advance Directives Information Provided: Yes Do you have a plan to hurt others: No Plan service: No Current occupational status: employed Current occupation: [employer] Cognitive needs: No Hearing needs: No Vision needs: No Physical Exam ED Vital Signs: Vital Signs - 24 hr 10/10/24 08:17 10/10/24 09:31 10/10/24 09:40 Temperature 98 F 97.5 F 97.5 F Pulse Rate 78 62 62 Respiratory Rate 20 16 16 Blood Pressure 150/75 H 124/79 124/79 Pulse Oximetry 97 97 Oxygen Delivery Method Room Air Room Air BMI result Body Mass Index 25.8 Const General: cooperative, comfortable and no acute distress Orientation/consciousness: patient oriented x3 Limitations: no limitations [facility] Head: Yes normal to inspection, Yes normocephalic and Yes atraumatic Ears: hearing grossly normal bilaterally General nose exam: Normal external nose present Face and sinus: Yes normal facial exam Mouth: Normal oral and palatal mucosa present, oropharynx normal and moist mucous membranes Throat: Yes posterior oropharynx normal Eyes General: appearance normal, both eyes and all related structures Eyelids: Yes eyelids normal Conjunctivae: conjunctivae normal Sclerae: sclerae normal Pupils: Equal, round and reactive pupils present EOM: EOMs intact bilaterally Neck Neck: Yes normal visual inspection, Yes full ROM and Yes no lymphadenopathy Lymphatic: no lymphadenopathy noted Chest Chest palpation & inspection: normal inspection of the chest Resp Effort & Inspection: normal respiratory effort and able to speak in complete sentences Auscultation: clear to auscultation bilaterally, no crackles, no rales, no rhonchi and no wheezes Cardio Rate: regular rate Rhythm: regular rhythm Heart sounds: S1 normal heart sound present and S2 normal heart sound present GI Other: Examination performed with Tamika Gardner RN present at all times. Patient has a peanut size hemorrhoid noted at the 3 o'clock position, not thrombosed, no overlying erythema, tender to palpation. No surrounding cellulitis. Patient deferring internal examination. Skin General skin exam: no rashes or lesions noted Trauma: no lacerations or abrasions Wounds: no wounds Neuro General: patient oriented x3 and moves all extremities Cranial nerves: Yes Equal, round and reactive pupils present Extrem General: Yes normal to inspection Right upper extremity: normal to inspection Left upper extremity: normal to inspection Right lower extremity: normal to inspection Left lower extremity: normal to inspection Medical Decision Making Medical Decision Making MDM Narrative: This is a 49-year-old male who presents emergency department for evaluation of hemorrhoids. He has tried preparation H several times over the last several days without any relief. He has not been constipated. On arrival, patient mildly hypertensive at 150/75, all other vital signs within normal limits. Repeat vitals within normal ranges. Discussed with patient that he does have a hemorrhoid and we can try Anusol stent. Educated the importance of Sitz baths, and avoiding constipation. Also given referral to General surgery for follow-up. He understands and agrees with plan. Patient stable for discharge Differential Diagnosis Differential Diagnoses: The differential diagnosis associated with the presentation includes Hemorrhoid, abscess, thrombosed hemorrhoid, cellulitis Discharge Plan Discharge Clinical Impression: Hemorrhoid Patient Disposition: Home, Self-Care Instructions: Sitz Bath (DC) Additional Instructions: You were seen in the ER due to a hemorroid. Hemorrhoids can take time for them to resolve. Please use topical agent as prescribed. You need to ensure that you do not become constipated as this can make your symptoms much worse. You need to provide yourself with multiple sitz baths to help. You may also follow-up with general surgery as at times these do not resolve with topical agents. Call to make an appointment. Prescriptions: New hydrocortisone [Anusol-HC] 2.5 % cream with perineal applicator 1 appl ND Q6-8H PRN (Reason: hemorrhoids) Qty: 30 0RF acetaminophen [Tylenol Extra Strength] 500 mg tablet 500 - 1,000 mg PO Q6H PRN (Reason: fever or pain) Qty: 30 0RF ibuprofen 600 mg tablet 600 mg PO Q6H PRN (Reason: pain) Qty: 30 0RF No Action levetiracetam [Keppra] 500 mg tablet 500 mg PO BID Qty: 180 2RF levetiracetam 500 mg tablet 500 mg PO BID levetiracetam 500 mg tablet 500 mg PO BID 90 Days Qty: 180 1RF Referrals: [facility] [place] General Surgeons [Provider Group, General Surgery] Stand Alone Forms: Work/School Release Interventions: ED Discharge Assessment Last Done: 10/10/24 09:40 Discharge Date/Time: 10/10/24 09:41 Print Language: Albanian
--- NOTE | 2024-10-10 09:10 | PC.NURSE ---
At bedside with provider doing a rectal exam. External Hemorrhoid noted. Pt reporting he has been using Preparation H at home with no improvement.
[2024-10-10 09:31] VITALS: BP 124/79; PULSE 62; RESP 16; TEMP 36.4; O2SAT 97
[2024-10-10 09:40] VITALS: BP 124/79; PULSE 62; RESP 16; TEMP 36.4; O2SAT 97
== END 2024-10-10 09:41 | disposition home or self-care (01) ==
PROVIDERS: Emergency Provider Emergency Medicine; PCP Internal Medicine
DX: K64.4 Residual hemorrhoidal skin tags (principal); K62.89 Other specified diseases of anus and rectum
CPT/HCPCS: 99283; 99284

== ENCOUNTER 2024-10-13 14:49 | Outpatient (AMB) | payer OTHER, SELFPAY ==
--- NOTE | 2024-10-13 14:55 | A.OFFVIS_ITS ---
Vital Signs 10/13/24 15:02 Height 5 ft 8 in Weight 161 lb BMI 24.5 BP 108/65 Blood Pressure Location Rt brachial Position Sitting Pulse 77 Intake Visit Reasons: hemorrhoids Intake Note: Patient here for evaluation and treatment of external hemorrhoid. Recently seen at [facility] who prescribed Anusol cream. Patient c/o: bleeding, painful. No improvement with cream. 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 He says that he not know he had hemorrhoids before but about 2 weeks ago, he was in the shower and he noticed this lump outside his anus. He says that this was a little tender at that time. He told his primary care physician and was referred to me. He says that he does not notice any blood per rectum. His main complaint is that there is a ?lump? and that he had some discomfort in the area. Denies problems with constipation. [facility] Medical History (Updated 10/13/24 @ 15:33 by Eldon Hector MD) Thrombosed external hemorrhoid Seizure Headache Abnormal MRI of head Vitamin D deficiency Diverticulosis Overweight (BMI 25.0-29.9) Potential exposure to STD Low grade glioma of brain Surgical History Hx of colonoscopy H/O circumcision Hx of appendectomy Family History Mother No problems noted. Father No problems noted. 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 Cognitive needs: No Hearing needs: No Vision needs: No Review of Systems Const Denies chills and Denies fever(s) Card Denies chest pain, Denies dyspnea and Denies dyspnea on exertion Resp Denies cough, Denies dyspnea and Denies dyspnea on exertion GI Denies hematochezia and Denies change in bowel habits Denies hematuria and Denies difficulty urinating Musc Denies back pain and Denies limited range of motion Neuro Denies focal weakness and Denies convulsions Psych Denies depression and Denies mood swings Physical Exam Vital Signs: Last Vital Signs Pulse 77 10/13/24 15:02 BP 108/65 10/13/24 15:02 BMI result Body Mass Index 24.5 Const General: comfortable and no acute distress Orientation/consciousness: patient oriented x3 Neck Neck: Yes no lymphadenopathy Resp Auscultation: clear to auscultation bilaterally Cardio Rhythm: regular rhythm GI Other: Rectal exam shows a thrombosed external hemorrhoid on the right side, non very tender currently, but he is unable to tolerate a full anoscopic exam; no bleeding, no cellulitis, no discharge Palpation (GI): Soft to palpation, nontender and no guarding Neuro General: patient oriented x3 Assessment & Plan Assessment & Plan (1) Thrombosed external hemorrhoid: Code(s): K64.5 - Perianal venous thrombosis Category: Medical Plan: He has what appears to be a thrombosed external hemorrhoid on the right side. His past the acute phase. I told him that the best course of management would be to do hot Sitz baths and allow this to resolve. He can take ibuprofen as well for pain I told him that I will see him again in the office in about 2 months to see how is doing. He has this continues to bother him, hemorrhoidectomy we will be in an option and this will be explained to him as well He seems to understand the plan well and is comfortable. Coding Level of Care Code New Pt Level 3 (83345) Diagnoses Thrombosed external hemorrhoid K64.5
[2024-10-13 15:02] VITALS: BP 108/65; PULSE 77; BMI 24.5
== END 2024-10-13 15:34 | disposition home or self-care (01) ==
LOC: HO.HGS 14:49
PROVIDERS: PCP Internal Medicine; Visit Provider Surgery
DX: K64.5 Perianal venous thrombosis (principal)
CPT/HCPCS: 99203

== ENCOUNTER → 2024-10-13 14:49 | Outpatient (BNVA) | payer OTHER, SELFPAY | PROVIDERS: PCP Internal Medicine; Visit Provider Surgery | DX: K64.5 Perianal venous thrombosis (principal) | CPT/HCPCS: 99202 ==

== ENCOUNTER 2024-12-14 08:58 | Outpatient (AMB) | payer OTHER, SELFPAY ==
--- NOTE | 2024-12-14 09:02 | MHC.OFFVIS ---
Vital Signs 12/14/24 09:07 Height 5 ft 8 in Weight 163 lb BMI 24.8 BP 123/70 Blood Pressure Location Lt brachial Position Sitting Pulse 60 Intake Visit Reasons: 2 mth follow up hemorrhoids Intake Note: Patient here to follow up hemorrhoids. Patient c/o: reports hemorrhoids cleared w/ Anusol cream. 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 States that the hemorrhoid has resolved at this point. No longer able to visualize it. Denies pain, denies bright red blood on toilet tissue when wiping. Has been using wet wipes as a precaution. His bowel function is at baseline. States he has increasing fruits to increase fiber overall. [facility] Medical History (Updated 10/13/24 @ 15:33 by Eldon Hector MD) Thrombosed external hemorrhoid Seizure Headache Abnormal MRI of head Vitamin D deficiency Diverticulosis Overweight (BMI 25.0-29.9) Potential exposure to STD Low grade glioma of brain Surgical History Hx of colonoscopy H/O circumcision Hx of appendectomy Family History Mother No problems noted. Father No problems noted. Social History Housing: Apartment Unable to assess alcohol history related to: Unknown Alcohol intake: never Patient Tobacco Use Status: Never used Tobacco e-Cigarette/Vaping Use: Never Used Second Hand Smoke Exposure: Yes service: No Current occupational status: employed Current occupation: [employer] Cognitive needs: No Hearing needs: No Vision needs: No Physical Exam Vital Signs: Last Vital Signs Pulse 60 12/14/24 09:07 BP 123/70 12/14/24 09:07 BMI result Body Mass Index 24.8 Const General: comfortable Orientation/consciousness: patient oriented x3 Resp Effort & Inspection: normal respiratory effort and able to speak in complete sentences GI Rectal Exam - Male: Yes deferred Neuro General: patient oriented x3 Assessment & Plan Assessment & Plan (1) Thrombosed external hemorrhoid: Code(s): K64.5 - Perianal venous thrombosis Category: Medical Plan 49-year-old male following up for hemorrhoids, use Anusol cream, Sitz baths. Patient states he is doing very well the hemorrhoids have resolved, no longer protruding from the anus. He denies any pain in the anus. Denies any bleeding with bowel movements, denies noticing it on tissue when wiping. He deferred a rectal exam today because things have cleared up. States that if there are any concerns in the future he will reach out to be seen again. I did recommend that he continue to have a diet high in fiber and maintain adequate hydration to avoid constipation to prevent hemorrhoids in the future. He is agreeable to this plan Coding Level of Care Code Est Pt Level 2 (92332) Diagnoses Thrombosed external hemorrhoid K64.5
[2024-12-14 09:07] VITALS: BP 123/70; PULSE 60; BMI 24.8
== END 2024-12-14 09:15 | disposition home or self-care (01) ==
LOC: HO.HGS 08:58
PROVIDERS: PCP Internal Medicine
DX: K64.5 Perianal venous thrombosis (principal)
CPT/HCPCS: 99212

== ENCOUNTER → 2024-12-14 08:58 | Outpatient (BNVA) | payer SELFPAY | PROVIDERS: PCP Internal Medicine | DX: K64.5 Perianal venous thrombosis (principal) | CPT/HCPCS: 99212 ==

== ENCOUNTER 2025-02-10 10:50 | Outpatient (AMB) | payer OTHER, SELFPAY ==
[2025-02-10 11:18] VITALS: BP 126/86; PULSE 68; O2SAT 96; BMI 25.3
--- NOTE | 2025-02-10 11:18 | MHC.OFFVIS ---
Vital Signs 02/10/25 11:18 Height 5 ft 8 in Weight 166 lb 4 oz BMI 25.3 BP 126/86 Blood Pressure Location Lt brachial Position Sitting Pulse 68 Pulse Source Pulse Oximeter Pulse Oximetry (%) 96 Oxygen Delivery Method Room Air Intake Visit Reasons: Follow Up 1mo Intake Note: Patient presents follow up Seizure Medication. No seizures since hospital stay in september. States having really bad headaches. Accompanied by: Spouse Allergies No Known Allergies Allergy (Verified 02/10/25 11:20) HPI Comments Details: 49 year old male with history of seizures as a child, and abnormal brain MRI presents today for an evaluation of his symptoms. GF states he had a seizure in 07/14/2023, at 1:30 AM, was brought to the ED where he was evaluated and discharged with follow up imaging He continues to have headaches daily several times of the day, takes advil as needed and reports some vision changes. He has not had an eye exam in over a year and notices difficulty reading texts and floaters. He gets up multiples times a night, is chronically fatigued by 10am and will nap during the day. He has witnessed apneas, morning headaches daily, takes keppra 500mg po bid and tylenol. He has bruxism, balance and gait issues, with vertigo. Memory is poor, forgets conversations, difficulty with appts, and medications however his gf helps him. Denies snoring, gasping, blurriness, or diplopia with the onset of headaches. Denies auras, nausea, vomiting, light, noise or smell sensitivities, falls, urine or bowel incontinence. [facility] MRI of the brain done back on 05/06/2016 showed a stable infiltrating non-enhancing, hyperintense lesion in the inferior left temporal lobe with cortical thickening. 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 He is followed by his neuro surgeon for annual mris at [facility]. [facility] Medical History Thrombosed external hemorrhoid Seizure Headache Abnormal MRI of head Vitamin D deficiency Diverticulosis Overweight (BMI 25.0-29.9) Potential exposure to STD Low grade glioma of brain Surgical History Hx of colonoscopy H/O circumcision Hx of appendectomy Family History Mother No problems noted. Father No problems noted. 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 Cognitive needs: No Hearing needs: No Vision needs: No Physical Exam Vital Signs: Last Vital Signs Pulse 68 02/10/25 11:18 BP 126/86 02/10/25 11:18 Pulse Ox 96 02/10/25 11:18 Oxygen Delivery Method Room Air 02/10/25 11:18 BMI result Body Mass Index 25.3 Const General: cooperative and tired appearing Nutritional Appearance: average body habitus Orientation/consciousness: patient oriented x3 HEENT Face and sinus: Yes face symmetric Teeth and gingiva: other (mallampti score is 3) Eyes General: appearance normal, both eyes and all related structures Pupils: Equal, round and reactive pupils present, Pupils normal by confrontation and Pupil accommodation reflex normal EOM: EOMs intact bilaterally Direct Ophthalmoscopy: normal light reflex Neck Neck: Yes full ROM, Yes trachea midline and Yes supple Resp Effort & Inspection: normal respiratory effort and able to speak in complete sentences Neuro General: patient oriented x3, CN's II-XI intact bilaterally and deep tendon reflexes 2+ bilaterally Cranial nerves: Yes Equal, round and reactive pupils present, Yes Normal accommodation reflex present, Yes Bilaterally intact EOM present, Yes Midline tongue present, Yes Symmetric palate elevation present, Yes Ability to bilaterally rotate head present and Yes Ability to bilaterally elevate shoulders present Cognition (Neuro): normal cognition Gait exam (Neuro): Normal gait present Motor exam (neuro): 5/5 motor strength present throughout and Pronator motor function not present Deep tendon reflexes (DTR's): Right triceps reflex intensity grade: 2+, Left triceps reflex intensity grade: 2+, Rt Biceps (C5, C6): 2+, Left biceps reflex intensity grade: 2+, Right brachioradialis reflex intensity grade: 2+, Left brachioradialis reflex intensity grade: 2+, Right patellar reflex intensity grade: 2+ and Left patellar reflex intensity grade: 2+ Coordination: [id number] test normal and Romberg test negative Psych Affect: normal affect Attitude: cooperative Thought process: Normal thought process present Results Reviewed Results Reviewed: MR/MR head/brain wo con IMPRESSION: 1. Stable appearance of a nonenhancing, mildly expansile T2 hyperintense lesion involving the inferior-posterior aspect of the left temporal lobe (including the posterior mesial temporal lobe). 2. Mild to moderate additional nonspecific white matter changes, similar to prior exam. 3. No acute intracranial abnormalities. EEG for Last Seizure October 08 2024. Assessment & Plan Assessment & Plan (1) Excessive daytime sleepiness: Code(s): G47.19 - Other hypersomnia Category: Medical (2) Witnessed seizure-like activity: Code(s): R56.9 - Unspecified convulsions Category: Medical Plan: Levitracetam 500 mg PO BID 60 tablets with 6 refills. (3) Abnormal MRI of head: Code(s): R93.0 - Abnormal findings on diagnostic imaging of skull and head, not elsewhere classified Category: Medical (4) Low grade glioma of brain: Comment: MRI of the brain done back on 05/06/2016 showed a stable infiltrating non-enhancing, hyperintense lesion in the inferior left temporal lobe with cortical thickening. 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 for seizures. compliance stressed. He use dto see DR. Berrios for Left temporla abnormality but lost follow up 4 years ago. urgent appointment with MRI Brain to evaluate left temporal abnormality EEG Brain activity due to seizure-like activity Headaches Patient Advised to follow up on Eye exam and keep a diary of #of headaches and times of onset along with triggers. NO DRIVING FOR 6 mths following a seizure. F/u in 3months Orders: Orders EEG Routine Today R56.9 - Unspecified convulsions, R93.0 - Abnormal findings on diagnostic imaging of skull and head, not elsewhere classified MR head/brain wo/w con Today C71.9 - Malignant neoplasm of brain, unspecified, R93.0 - Abnormal findings on diagnostic imaging of skull and head, not elsewhere classified RT PSG in-lab sleep study Today G47.19 - Other hypersomnia Medications: Refilled levetiracetam (Keppra) 500 mg PO BID 180 tabs 2RF acetaminophen (Tylenol Extra Strength) 500 - 1,000 mg (1 - 2 x 500 mg) PO Q6H PRN 30 tabs 0RF fever or pain Patient Instructions: Sleep Hygiene provided: set a scheduled bedtime and wake time to help regulate the circadian rhythm and balance the release of pituitary hormones. Sleep in a dark room, temperatures below 68 degrees, and no devices n bed. Limit caffeinated products 6 hours prior to bed, and limit fluids 2-4 hours prior to bed. Gentle night yoga, diffusing essential oils, and playing soft music can be relaxing. Seizure prevention, avoid stressors, eat meals on time, get plenty of rest. Take medication keppra 500mg po BID daily. Evaluate sleep in lab. Speak with neuro- surgeon consult for follow ups. Optimized sleep. No Driving for 6months. Coding Level of Care Code Complex visit Add On G2211 Diagnoses Excessive daytime sleepiness G47.19 Witnessed seizure-like activity R56.9 Abnormal MRI of head R93.0 Low grade glioma of brain C71.9
== END 2025-02-10 12:26 | disposition home or self-care (01) ==
LOC: HO.HSMS 10:51
PROVIDERS: PCP Internal Medicine; Visit Provider Physician Assistant Medical
DX: G47.19 Other hypersomnia (principal); R56.9 Unspecified convulsions; R93.0 Abnormal findings on diagnostic imaging of skull and head, not elsewhere classified; C71.9 Malignant neoplasm of brain, unspecified
CPT/HCPCS: 99214

== ENCOUNTER → 2025-02-10 10:50 | Outpatient (BNVA) | payer MEDICAID, SELFPAY | PROVIDERS: PCP Internal Medicine; Visit Provider Physician Assistant Medical | DX: R93.0 Abnormal findings on diagnostic imaging of skull and head, not elsewhere classified (principal); G47.19 Other hypersomnia; R56.9 Unspecified convulsions; C71.9 Malignant neoplasm of brain, unspecified | CPT/HCPCS: 99212 ==

== ENCOUNTER 2025-03-14 07:44 | Outpatient (AMB) | payer OTHER, SELFPAY ==
--- NOTE | 2025-03-14 07:39 | MHC.OFFVIS ---
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 Pt is being followed by his neurologist for seizure disorder and abnormal findings on MRI. He is being managed with Keppra 500mg po BID and reports no interval history of seizures.He snores loudly, has witnessed apneas, continues to have morning headaches daily which last hours and can occur several times of the day. He has bruxism, does not uses a mouth guard. He takes advil as needed and reports some vision changes, with blurry vision, floaters, difficulty reading text messages and small font on the tablet. He says his balance is off and uses a cane due to near falls and gait issues. He has vertigo with the headaches and thinks the room is spinning which makes him so fatigued he needs to lay down. He denies auras, nausea, vomiting, phono/photo sensitivities, sensitivity to smells, falls, urine or bowel incontinence. He has not had an eye exam in over 5 years now. 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 He gets up multiples times a night, is chronically fatigued by 10am, he naps through out the day. Memory is poor, forgets conversations, jumps from one thought to the next, forgets words, has tangential speech, difficulty with medical appts, taking medications on time, self care, however his girlfriend helps him manage. He gets depressed, has anxiety and has strong emotions with bursts of crying at the thought of never seeing his children due to his divorce and is seeking therapy. We reviewed his paperwork today with important dates and completion of all documentation. [facility] MRI of the brain done back on 05/06/2016 showed a stable infiltrating non-enhancing, hyperintense lesion in the inferior left temporal lobe with cortical thickening. 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 He is followed by his neuro surgeon for annual MRI - at [facility]. [facility] Medical History Thrombosed external hemorrhoid Seizure Headache Abnormal MRI of head Vitamin D deficiency Diverticulosis Overweight (BMI 25.0-29.9) Potential exposure to STD Low grade glioma of brain Surgical History Hx of colonoscopy H/O circumcision Hx of appendectomy Family History Mother No problems noted. Father No problems noted. 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 Cognitive needs: No Hearing needs: No Vision needs: No Physical Exam Vital Signs: Last Vital Signs Pulse 68 03/14/25 07:40 BP 110/72 03/14/25 07:40 Pulse Ox 100 03/14/25 07:40 Oxygen Delivery Method Room Air 03/14/25 07:40 BMI result Body Mass Index 25.1 Const General: cooperative and tired appearing Nutritional Appearance: average body habitus Orientation/consciousness: patient oriented x3 HEENT Face and sinus: Yes face symmetric Teeth and gingiva: other (mallampti score is 3) Eyes General: appearance normal, both eyes and all related structures Pupils: Equal, round and reactive pupils present, Pupils normal by confrontation and Pupil accommodation reflex normal EOM: EOMs intact bilaterally Direct Ophthalmoscopy: normal light reflex Neck Neck: Yes full ROM, Yes trachea midline and Yes supple Resp Effort & Inspection: normal respiratory effort and able to speak in complete sentences Neuro General: patient oriented x3, CN's II-XI intact bilaterally and deep tendon reflexes 2+ bilaterally Cranial nerves: Yes Equal, round and reactive pupils present, Yes Normal accommodation reflex present, Yes Bilaterally intact EOM present, Yes Midline tongue present, Yes Symmetric palate elevation present, Yes Ability to bilaterally rotate head present and Yes Ability to bilaterally elevate shoulders present Cognition (Neuro): normal cognition Gait exam (Neuro): Normal gait present Motor exam (neuro): 5/5 motor strength present throughout and Pronator motor function not present Deep tendon reflexes (DTR's): Right triceps reflex intensity grade: 2+, Left triceps reflex intensity grade: 2+, Rt Biceps (C5, C6): 2+, Left biceps reflex intensity grade: 2+, Right brachioradialis reflex intensity grade: 2+, Left brachioradialis reflex intensity grade: 2+, Right patellar reflex intensity grade: 2+ and Left patellar reflex intensity grade: 2+ Coordination: [id number] test normal and Romberg test negative Psych Appearance: well kempt Mental Status: other Affect: Anxious affect present Attitude: cooperative Thought process: Tangential thought process present Insight: Fair insight present (Psych) Judgement: Fair judgement present (Psych) Orientation What is the (year) (season) (date) (day) (month)?: year, season, day and month Where are we (state) (county) (town or city) (hospital) (floor)?: state, county, town or city, hospital/clinic and floor Registration Name of 3 unrelated objects clearly and slowly, then ask patient to repeat all 3 of them. (1st repeat determines score. Make sure they can repeat all three): object 1, object 2 and object 3 Attention & Calculation (CHOOSE ONE) Spell WORLD backwards (DLROW): 4 letters Recall Ask patient to repeat the 3 items from question #3.: object 1, object 2 and object 3 Language Show patient a wristwatch & ask what it is. Repeat for pencil.: watch and pencil Ask the patient to repeat the phrase 'No ifs, ands, or buts' after you.: incorrect Ask the patient to 'take a piece of paper with their right hand' 'fold paper in half' 'place paper on floor': take paper in right hand, fold paper in half and place paper on floor Give patient a blank piece of paper & ask to write a sentence. Score if it contains a noun & verb.: sentence contains subject and verb Score Score: 25 Results Reviewed Results Reviewed: MRI Assessment & Plan Assessment & Plan (1) Excessive daytime sleepiness: Comment: HST is pending Code(s): G47.19 - Other hypersomnia Category: Medical (2) Witnessed seizure-like activity: Code(s): R56.9 - Unspecified convulsions Category: Medical Plan: Levitracetam 500 mg PO BID 60 tablets with 6 refills. (3) Abnormal MRI of head: Code(s): R93.0 - Abnormal findings on diagnostic imaging of skull and head, not elsewhere classified Category: Medical (4) Low grade glioma of brain: Comment: MRI of the brain done back on 05/06/2016 showed a stable infiltrating non-enhancing, hyperintense lesion in the inferior left temporal lobe with cortical thickening. 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 Will send for PSG Continue Levetiracetam / Keppra 500mg bid. Do not miss any medication doses. He used to see Dr. Berrios for Left temporal abnormality but lost follow up 4 years ago. MRI Brain reviewed with pt today, left temporal abnormality, Low Grade Glioma of the brain. Headaches Patient Advised to follow up with Opthamologist / optometry for eye exam and keep a diary of #of headaches and times of onset along with triggers. Will start him on sumatriptan prn acute headaches 50mg po at onset of headache may take one additonal tablet if headache does not abort, do not take more than 4 tablets in a 24 hour period. Anxiety and Depression seek counseling with [email or web address] or a therapist of your choice. MMSE is 25/30 NO DRIVING FOR 6 mths following a seizure. Follow all seizure protocols. Avoid triggers, hunger, stress, make sure to get a good night of sleep daily for at least 8 hours or more. Completion of all paperwork for disability services / SSI, to be forwarded to neurologist. Labs requested from [facility]. F/u in 3months Medications: New sumatriptan succinate take 1 tab at onset of headache; if no relief may repeat 1 tab after at least 2 hrs; max = 4 tabs/24 hr PO 14 tabs 0RF G89.29 - Other chronic pain, R51.9 - Headache, unspecified Patient Instructions: Please complete the following fasting labs to rule out deficiencies. CBC/CMP/ B12/ Vit D/ TSH/ Homocysteine and MMA/ Ferritin. Sleep Hygiene provided: set a scheduled bedtime and wake time to help regulate the circadian rhythm and balance the release of pituitary hormones. Sleep in a dark room, temperatures below 68 degrees, and no devices n bed. Limit caffeinated products 6 hours prior to bed, and limit fluids 2-4 hours prior to bed. Gentle night yoga, diffusing essential oils, and playing soft music can be relaxing. Coding Level of Care Code Est Pt Level 4 (23686) Diagnoses Excessive daytime sleepiness G47.19 Witnessed seizure-like activity R56.9 Abnormal MRI of head R93.0 Low grade glioma of brain C71.9 Chronic tension-type headache, intractable G44.221 Headache type: tension-type Intractability: intractable
[2025-03-14 07:40] VITALS: BP 110/72; PULSE 68; O2SAT 100; BMI 25.1
== END 2025-03-14 09:15 | disposition home or self-care (01) ==
LOC: HO.HSMS 07:44
PROVIDERS: PCP Internal Medicine; Visit Provider Physician Assistant Medical
DX: G47.19 Other hypersomnia (principal); R56.9 Unspecified convulsions; R93.0 Abnormal findings on diagnostic imaging of skull and head, not elsewhere classified; C71.9 Malignant neoplasm of brain, unspecified; G44.221 Chronic tension-type headache, intractable
CPT/HCPCS: 99214

== ENCOUNTER → 2025-03-14 07:44 | Outpatient (BNVA) | payer OTHER, SELFPAY | PROVIDERS: PCP Internal Medicine; Visit Provider Physician Assistant Medical | DX: G47.19 Other hypersomnia (principal); G44.221 Chronic tension-type headache, intractable; R56.9 Unspecified convulsions; R93.0 Abnormal findings on diagnostic imaging of skull and head, not elsewhere classified; C71.9 Malignant neoplasm of brain, unspecified; Z79.899 Other long term (current) drug therapy; Z71.89 Other specified counseling | CPT/HCPCS: 99212 ==

== ENCOUNTER → 2025-03-17 19:30 | Outpatient (REF) | payer OTHER, SELFPAY | LOC: HO.SL 19:30 | PROVIDERS: PCP Internal Medicine; Visit Provider Physician Assistant Medical | DX: G47.19 Other hypersomnia (principal) | CPT/HCPCS: 95810 ==

== ENCOUNTER → 2025-03-17 21:27 | Outpatient (BNV) | payer OTHER, SELFPAY | PROVIDERS: PCP Internal Medicine; Visit Provider Psychiatry & Neurology Neurology | DX: R06.83 Snoring (principal) | CPT/HCPCS: 95810 ==